=== PATIENT | male | born 1945 | race Caucasian/White ===

== ENCOUNTER 2017-04-14 16:17 | Inpatient (IN) | payer MEDICARE, OTHER ==
[2017-04-14 16:45] LABS: BASO # 0.2 K/uL (0.0-0.2); BASO % 2.2 % (0.0-2.0); EOS # 0.1 K/uL (0.0-0.7); EOS % 0.9 % (0.0-4.0); HEMATOCRIT 42.7 % (35.0-51.0); LYMPH # 1.4 K/uL (1.0-4.3); LYMPH % 19.6 % (20.0-40.0); MEAN CELL VOLUME 88.7 fL (80.0-94.0); MEAN CORPUSCULAR HEMOGLOBIN 29.1 pg (27.0-31.0); MEAN CORPUSCULAR HGB CONC 32.7 g/dL (33.0-37.0); MEAN PLATELET VOLUME 9.6 fL (7.2-11.7); MONO # 0.5 K/uL (0.0-0.8); MONO % 7.6 % (0.0-10.0); PLATELET COUNT 126 K/uL (130-400); RED CELL DISTRIBUTION WIDTH 15.3 % (11.5-14.5)
[2017-04-14] MEDS ORDERED: Sodium Chloride 0.9% 500 ML IV ONE ×2 (16:58→18:17)
[2017-04-14 17:05] LABS: INR 1.1
[2017-04-14 17:07] LABS: ALB/GLOB RATIO 0.9 (1.0-2.1); BILIRUBIN,TOTAL 1.1 mg/dL (0.2-1.3); CALCIUM 8.4 mg/dl (8.6-10.4); TOTAL PROTEIN 8.6 g/dL (6.3-8.3)
[2017-04-14 17:14] LABS: TROPONIN I 0.16 ng/mL (0.00-0.120)
--- NOTE | 2017-04-14 17:14 | C.PDOC ---
Time Seen by Provider: 04/14/17 16:31 Chief Complaint (Nursing): Dizziness/Lightheaded Past Medical History Vital Signs: Last Vital Signs Temp 99.0 F 04/14/17 16:29 Pulse 123 H 04/14/17 16:29 Resp 20 04/14/17 16:29 BP 118/78 04/14/17 16:29 Pulse Ox 93 L 04/14/17 16:29 - Medical History PMH: HTN, Hypercholesterolemia, Parkinson's Disease, Peripheral Edema, Sexually Transmitted Disease () Denies: Anxiety, Chronic Kidney Disease Family History: States: Unknown Family Hx (no pertinent family history) - Social History Hx Tobacco Use: No Hx Alcohol Use: No Hx Substance Use: No - Immunization History Hx Tetanus Toxoid Vaccination: No Hx Influenza Vaccination: No Hx Pneumococcal Vaccination: No ED Course And Treatment - Laboratory Results Result Diagrams: 04/14/17 16:42 04/14/17 16:42 O2 Sat by Pulse Oximetry: 93 Disposition - Disposition
--- NOTE | 2017-04-14 17:17 | C.PDOC ---
History Of Present Illness Patient FANTA from home, states he fell today because he felt light-headed and lost his balance. He admits to hitting head and right chest/upper back on floor , but denies LOC. Patient has h/o Parkinson's disease, dementia, HTN, hyperlipidemia. Patient denies chest pain, SOB, abdominal pain, headache, current dizziness, visual changesm, extremity weakness, sensory changes. 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) Current Symptoms Are (Timing): Better Activity At Onset Of Symptoms: Standing Fall Associated With With Symptoms: Yes Severity: Mild Past Medical History Reviewed: Historical Data, Nursing Documentation, Vital Signs Vital Signs: Last Vital Signs Temp 99.0 F 04/14/17 16:29 Pulse 123 H 04/14/17 16:29 Resp 20 04/14/17 16:29 BP 118/78 04/14/17 16:29 Pulse Ox 93 L 04/14/17 18:55 - Medical History PMH: HTN, Hypercholesterolemia, Parkinson's Disease, Peripheral Edema, Sexually Transmitted Disease () Family History: States: Other Other Family History: noncontributory - Social History Hx Tobacco Use: No Hx Alcohol Use: No Hx Substance Use: No - Immunization History Hx Tetanus Toxoid Vaccination: No Hx Influenza Vaccination: No Hx Pneumococcal Vaccination: No Review Of Systems Except As Marked, All Systems Reviewed And Found Negative. Constitutional: Negative for: Fever, Chills Cardiovascular: Negative for: Chest Pain Respiratory: Negative for: Shortness of Breath Gastrointestinal: Negative for: Abdominal Pain Musculoskeletal: Positive for: Other (right sided rib/upper back pain) Skin: Negative for: Rash Neurological: Positive for: Dizziness. Negative for: Weakness, Numbness, Headache Physical Exam - Physical Exam Appears: Well, Non-toxic, No Acute Distress Skin: Normal Color, Warm, Dry Head: Atraumatic, Normacephalic Eye(s): bilateral: Normal Inspection Oral Mucosa: Dry Chest: Symmetrical, Tenderness (right lateral chest/thoracic area at approx rib4 /5 area) Cardiovascular: Rhythm Regular (tachycardic ) Respiratory: Normal Breath Sounds, No Rales, No Rhonchi, No Wheezing Gastrointestinal/Abdominal: Normal Exam, Bowel Sounds, Soft, No Tenderness Back: Normal Inspection, No CVA Tenderness, No Vertebral Tenderness Extremity: Normal ROM, No Calf Tenderness, No Deformity Pulses: Left Dorsalis Pedis: Normal, Right Dorsalis Pedis: Normal Neurological/Psych: Oriented x3, Other (resting tremor noted) ED Course And Treatment - Laboratory Results Result Diagrams: 04/14/17 16:42 04/14/17 16:42 ECG: Interpreted By Me, Viewed By Me (sinus tachycardia 121 bpm, short OR interval, no delta wavresm normal axis, ST depressions II, aVF, V3-V6) ECG Interpretation: Abnormal O2 Sat by Pulse Oximetry: 93 (RA) Pulse Ox Interpretation: Abnormal - Other Rad RIBS SERIES X-Ray: Viewed By Me, Read By Radiologist Interpretation: Accession No. : [id number]. Patient Name / ID : MARCELLA GARRISON I / [id number]. Exam Date : 04/14/2017 16:59:15 ( Approved ). Study Comment : Sex / Age : M / 71Y. Creator : Rajinder White MD. Dictator : Rajinder White MD. District Manager Primary Care Sales : Physician Assistant : Rajinder White MD. Approver2 : Report Date : 04/14/2017 17:32:31. My Comment : . Right ribs two views. History: Fall. Comparison: None available. Findings: Question cortical irregularity of the right anterolateral 3rd and 4th ribs which may represent underlying osseous injury. Correlation with chest CT may be helpful if clinically indicated. No evidence of pneumothorax. Mild venous congestion. Right hilar prominence. Degenerative changes in the right shoulder. Impression: Question cortical irregularity of the right anterolateral 3rd and 4th ribs which may represent underlying osseous injury. Correlation with chest CT may be helpful if clinically indicated. No evidence of pneumothorax. cxr X-Ray: Viewed By Me, Read By Radiologist Interpretation: Accession No. : [id number]. Patient Name / ID : MARCELLA GARRISON I / [id number]. Exam Date : 04/14/2017 16:45:57 ( Approved ). Study Comment : Sex / Age : M / 71Y. Creator : Rajinder White MD. Dictator : Rajinder White MD. District Manager Primary Care Sales : Physician Assistant : Rajinder White MD. Approver2 : Report Date : 04/14/2017 17:37:51. My Comment : . Chest x- ray single frontal view. History: Tachycardia. Comparison: None available. Findings: Mild to moderate venous congestion. Patchy increased consolidative markings at the right lung base which may represent infiltrate and or atelectasis. Post treatment interval followup may be helpful to ensure resolution. Question cortical irregularity of the right anterolateral 3rd and 4th ribs which may represent underlying osseous injury. Correlation with chest CT may be helpful if clinically indicated. No evidence of pneumothorax. Tortuous aorta. Mild cardiomegaly. Degenerative changes in the spine and shoulders. Impression: Mild to moderate venous congestion. Patchy increased consolidative markings at the right lung base which may represent infiltrate and or atelectasis. Post treatment interval followup may be helpful to ensure resolution. Question cortical irregularity of the right anterolateral 3rd and 4th ribs which may represent underlying osseous injury. Correlation with chest CT may be helpful if clinically indicated. No evidence of pneumothorax. Tortuous aorta. Mild cardiomegaly. Progress Note: Blood work, CXR/rib series, CT head, UA ordered and reviewed. Patient given PO tylenol. Troponin mildly elevated with abnormal EKG - pending CT head to r/o bleed prior to ASA administration. Disposition - Disposition Disposition Time: 19:00 Condition: FAIR Forms: [facility] (Arabic) - Clinical Impression Clinical Impression: Fall, Elevated troponin Physician Patient Turnover Patient Signed Over To: Dawit Parikh Handoff Comments: pending CT head, admission, Dr. Elizabeth
[2017-04-14] MEDS ORDERED: Sodium Chloride 0.9% 1,000 ML ONE (17:18)
--- NOTE | 2017-04-14 17:34 | RAD ---
Right ribs two views History: Fall. Comparison: None available. Findings: Question cortical irregularity of the right anterolateral 3rd and 4th ribs which may represent underlying osseous injury. Correlation with chest CT may be helpful if clinically indicated. No evidence of pneumothorax. Mild venous congestion. Right hilar prominence. Degenerative changes in the right shoulder. Impression: Question cortical irregularity of the right anterolateral 3rd and 4th ribs which may represent underlying osseous injury. Correlation with chest CT may be helpful if clinically indicated. No evidence of pneumothorax.
--- NOTE | 2017-04-14 17:39 | RAD ---
Chest x-ray single frontal view History: Tachycardia. Comparison: None available. Findings: Mild to moderate venous congestion. Patchy increased consolidative markings at the right lung base which may represent infiltrate and or atelectasis. Post treatment interval followup may be helpful to ensure resolution. Question cortical irregularity of the right anterolateral 3rd and 4th ribs which may represent underlying osseous injury. Correlation with chest CT may be helpful if clinically indicated. No evidence of pneumothorax. Tortuous aorta. Mild cardiomegaly. Degenerative changes in the spine and shoulders. Impression: Mild to moderate venous congestion. Patchy increased consolidative markings at the right lung base which may represent infiltrate and or atelectasis. Post treatment interval followup may be helpful to ensure resolution. Question cortical irregularity of the right anterolateral 3rd and 4th ribs which may represent underlying osseous injury. Correlation with chest CT may be helpful if clinically indicated. No evidence of pneumothorax. Tortuous aorta. Mild cardiomegaly.
[2017-04-14] MEDS ORDERED: TYLENOL EXTRA STRENGTH 500 MG PO PRN (20:17)
[2017-04-14] MEDS: Nitroglycerin 2% Ointment Foilpak UD TOP SCH (21:26)
[2017-04-14 21:53] LABS: RBC URINE 2 /hpf (0-3); URINE BILIRUBIN NEGATIVE (NEGATIVE); URINE BLOOD NEGATIVE (NEGATIVE); URINE COLOR Yellow (YELLOW); URINE GLUCOSE (UA) NORMAL (Normal); URINE HYALINE CAST >20 /lpf (0-2); URINE KETONE 1+ mg/dL (NEGATIVE); URINE LEUKOCYTE ESTERASE NEG Leu/uL (Negative); URINE PROTEIN 1+ mg/dL (NEGATIVE); URINE UROBILINOGEN NORMAL mg/dL (0.2-1.0); WBC URINE 1 /hpf (0-5)
[2017-04-15 01:55] LABS: TROPONIN I 0.512 ng/mL (0.00-0.120)
[2017-04-15] MEDS: Nitroglycerin 2% Ointment Foilpak UD TOP SCH ×4 (04:33→22:15)
[2017-04-15 06:55] LABS: BASO # 0.1 K/uL (0.0-0.2); BASO % 1.1 % (0.0-2.0); EOS # 0.1 K/uL (0.0-0.7); EOS % 1.7 % (0.0-4.0); HEMATOCRIT 41.3 % (35.0-51.0); LYMPH # 1.2 K/uL (1.0-4.3); LYMPH % 21.7 % (20.0-40.0); MEAN CELL VOLUME 89.3 fL (80.0-94.0); MEAN CORPUSCULAR HEMOGLOBIN 29.2 pg (27.0-31.0); MEAN CORPUSCULAR HGB CONC 32.7 g/dL (33.0-37.0); MEAN PLATELET VOLUME 9.8 fL (7.2-11.7); MONO # 0.6 K/uL (0.0-0.8); MONO % 10.3 % (0.0-10.0); NRBC % 0.2 % (0.0-2.0); RED CELL DISTRIBUTION WIDTH 15.2 % (11.5-14.5); WHITE BLOOD COUNT 5.7 K/uL (4.8-10.8)
[2017-04-15 07:55] LABS: ALB/GLOB RATIO 1.3 (1.0-2.1); BILIRUBIN,TOTAL 1.3 mg/dL (0.2-1.3); CALCIUM 7.9 mg/dl (8.6-10.4); POTASSIUM 3.8 mmol/L (3.6-5.2)
[2017-04-15 07:57] LABS: THYROID STIMULATING HORMONE 0.75 mIU/L (0.46-4.68)
[2017-04-15 08:01] LABS: TOTAL PROTEIN 7.6 g/dL (6.3-8.3)
--- NOTE | 2017-04-15 08:52 | CT ---
PROCEDURE: CT HEAD WITHOUT CONTRAST. HISTORY: DIZZINESS, FALLS COMPARISON: None available. TECHNIQUE: Axial computed tomography images were obtained through the head/brain without intravenous contrast. Radiation dose: Total exam DLP = 991 mGy-cm. This CT exam was performed using one or more of the following dose reduction techniques: Automated exposure control, adjustment of the mA and/or kV according to patient size, and/or use of iterative reconstruction technique. FINDINGS: HEMORRHAGE: No intracranial hemorrhage. BRAIN: Benign calcification of the falx cerebri. Mild cerebral volume loss and decreased attenuation of the periventricular white matter likely due chronic microangiopathic disease. VENTRICLES: Unremarkable. No hydrocephalus. CALVARIUM: Unremarkable. PARANASAL SINUSES: Unremarkable as visualized. No significant inflammatory changes. MASTOID AIR CELLS: Is Unremarkable as visualized. No inflammatory changes. OTHER FINDINGS: None. IMPRESSION: Negative acute. Chronic microvascular ischemic changes. If symptoms persist, consider further evaluation with MRI. These findings were preliminarily reported at 7:08 p.m. on 04/14/[address] Bran Ugarte from [facility].
--- NOTE | 2017-04-15 09:11 | CP.PCM.PN ---
Subjective - Date & Time of Evaluation Date of Evaluation: 04/15/17 Time of Evaluation: 09:00 - Subjective Subjective: PT SEEN WITH DR. ENRIQUEZ TODAY DURING ROUNDS. DR. GOULD SAW AND EVAL'D PT WELL. DOPPLER OF LE DONE AND + DVT TO LLE; CT CHEST + MULTIPLE B/L PEs; REPEAT HEAD CT NEG. DRS. GOULD AND MINA AWARE OF RESULTS. HEP GTT STARTED BY DR. GOULD AND CONSULT FOR DR. SOUTH REQUESTED FOR IVC FILTER PT IS A POOR CANDIDATE FOR PO ANTICOAG AT HOME 2/2 FREQUENT FALLS. WILL F/ U. Objective - Vital Signs/Intake and Output Vital Signs (last 24 hours): Temp Pulse Resp BP Pulse Ox 98.3 F 94 H 18 112/63 98 04/15/17 08:03 04/15/17 08:03 04/15/17 08:03 04/15/17 08:03 04/15/17 08:03 Intake and Output: 04/15/17 04/15/17 06:59 18:59 Intake Total 200 Output Total 250 Balance -50 - Medications Medications: Current Medications Acetaminophen (Tylenol 325mg Tab) 325 mg PO Q6H PRN PRN Reason: Pain, moderate (4-7) Aspirin (Aspirin Chewable) 81 mg PO DAILY [facility] Carbidopa/Levodopa (Sinemet 10/100) 1 tab PO QID [facility] Last Admin: 04/14/17 22:34 Dose: 1 tab Gabapentin (Neurontin) 100 mg PO BID [facility] Metoprolol Succinate (Toprol Xl) 12.5 mg PO DAILY [facility] Nitroglycerin (Nitro-Bid 2% Oint) 1 ea TOP Q6H [facility] Last Admin: 04/15/17 04:33 Dose: 1 ea Pantoprazole Sodium (Protonix Ec Tab) 40 mg PO DAILY [facility] Pneumococcal Polyvalent Vaccine (Pneumovax 23 Vaccine) 0.5 ml IM .ONCE ONE Stop: 04/17/17 14:01 Rosuvastatin Calcium (Crestor) 20 mg PO HS [facility] Last Admin: 04/14/17 21:34 Dose: 20 mg - Labs Labs: 04/15/17 06:46 04/15/17 06:46 PT 12.4 SECONDS (9.7-12.2) H 04/14/17 16:42 INR 1.1 04/14/17 16:42 APTT 29 SECONDS (21-34) 04/14/17 16:42
[2017-04-15 09:20] LABS: TROPONIN I 0.249 ng/mL (0.00-0.120)
[2017-04-15] MEDS: Pantoprazole 40 mg EC Tab PO SCH (09:22)
[2017-04-15] MEDS ORDERED: Metoprolol Succinate 25 mg XL Tab PO SCH (10:00)
[2017-04-15] MEDS: Sodium Chloride 0.9% 1,000 ML IV SCH ×2 (11:52→21:15)
[2017-04-15] MEDS ORDERED: Iodixanol 320 MG/ML 100 ML BOTTLE IV ONE (13:32)
--- NOTE | 2017-04-15 14:24 | CT ---
PROCEDURE: CT HEAD WITHOUT CONTRAST. HISTORY: r/o bleed,24hr follow up COMPARISON: Comparison is made to the previous study dated 04/14/2017 TECHNIQUE: Axial computed tomography images were obtained through the head/brain without intravenous contrast. Radiation dose: Total exam DLP = 896.06 mGy-cm. This CT exam was performed using one or more of the following dose reduction techniques: Automated exposure control, adjustment of the mA and/or kV according to patient size, and/or use of iterative reconstruction technique. FINDINGS: HEMORRHAGE: No intracranial hemorrhage. BRAIN: No mass effect or edema. Mild chronic microvascular white matter ischemic disease is again noted. VENTRICLES: Unremarkable. No hydrocephalus. CALVARIUM: Unremarkable. PARANASAL SINUSES: Unremarkable as visualized. No significant inflammatory changes. MASTOID AIR CELLS: Unremarkable as visualized. No inflammatory changes. OTHER FINDINGS: None. IMPRESSION: No evidence of acute intracranial hemorrhage or significant interval change compared to the previous exam.
--- NOTE | 2017-04-15 14:36 | CT ---
PROCEDURE: CT Chest with contrast (Pulmonary Angiogram) HISTORY: r/o pe COMPARISON: None available. TECHNIQUE: Axial computed tomography images were obtained of the chest in the pulmonary arterial phase of enhancement. Coronal and sagittal reformatted images were created and reviewed. Intravenous contrast dose: 100 mL Visipaque 320 Radiation dose: Total exam DLP = 513.99 mGy-cm. This CT exam was performed using one or more of the following dose reduction techniques: Automated exposure control, adjustment of the mA and/or kV according to patient size, and/or use of iterative reconstruction technique. FINDINGS: PULMONARY ARTERIES: There are multiple filling defects seen in the distal portion of the main right and left pulmonary arteries. There are also multiple filling defect seen in the both upper and lower lobe pulmonary arteries. Nine the main pulmonary artery is mildly enlarged suggestive of mild pulmonary hypertension. AORTA: No acute findings. No thoracic aortic aneurysm. LUNGS: No evidence of acute pulmonary disease PLEURAL SPACES: Trace right pleural effusion is noted. No evidence of pneumothorax HEART: The heart is mildly enlarged. LYMPH NODES: No lymphadenopathy. BONES, CHEST WALL: Unremarkable. No fracture or destructive lesion OTHER FINDINGS: Unremarkable. IMPRESSION: Filling defects noted in both main pulmonary arteries and in the upper and lower pulmonary arteries consistent with pulmonary emboli. Trace right pleural effusion. Mild cardiomegaly. Mildly enlarged main pulmonary artery. The above findings were reported to and discussed with the nurse practitioner Mrs. Li in tower at 2:25 p.m. on 04/15/2017.
--- NOTE | 2017-04-15 16:25 | CP.PCM.CON ---
History of Present Illness - History of Present Illness History of Present Illness: Vasc Surgery: Dr Perez Pt is a 71M Creole speaking with history of Parkinson's disease, dementia, HTN, and HLD. Pt was was brought in by ambulance after he fell 2/2 feeling light headed and losing his balance. Pt states he hit his head on the floor, but he never lost consciousness. Vascular surgery was consulted as pt found to have multiple b/l PEs and a LLE DVT, primary is requesting IVC filter as pt is poor candidate for anti-coagulation given his frequent falls. Review of Systems - Review of Systems Systems not reviewed;Unavailable: Language Barrier Past Patient History - Past Medical History & Family History Past Medical History?: Yes - Past Social History Smoking Status: Never Smoked - CARDIAC Hx Cardiac Disorders: Yes Hx Hypercholesterolemia: Yes Hx Hypertension: Yes Hx Peripheral Edema: Yes - PULMONARY Hx Respiratory Disorders: Yes Hx Tuberculosis: Yes (1965) - NEUROLOGICAL Hx Neurological Disorder: Yes Hx Parkinson's Disease: Yes - HEENT Hx HEENT Problems: No - RENAL Hx Chronic Kidney Disease: No - ENDOCRINE/METABOLIC Hx Endocrine Disorders: No - HEMATOLOGICAL/ONCOLOGICAL Hx Blood Disorders: No - INTEGUMENTARY Hx Dermatological Problems: No - MUSCULOSKELETAL/RHEUMATOLOGICAL Hx Falls: Yes - GASTROINTESTINAL Hx Gastrointestinal Disorders: Yes Hx Constipation: Yes Other/Comment: Claimed he takes a small white pill and he moves his bowels - GENITOURINARY/GYNECOLOGICAL Hx Genitourinary Disorders: Yes Hx Sexually Transmitted Disorders: Yes () - PSYCHIATRIC Hx Psychophysiologic Disorder: No Hx Substance Use: No - SURGICAL HISTORY Hx Surgeries: No - ANESTHESIA Hx Anesthesia: No Hx Anesthesia Reactions: No Hx Malignant Hyperthermia: No Has any member of the family had a problem w/ anesthesia?: No Meds Allergies/Adverse Reactions: Allergies Allergy/AdvReac Type Severity Reaction Status Date / Time No Known Allergies Allergy Verified 04/14/17 16:34 - Medications Medications: Current Medications Acetaminophen (Tylenol 325mg Tab) 650 mg PO Q6H PRN PRN Reason: Pain, moderate (4-7) Last Admin: 04/15/17 12:46 Dose: 650 mg Aspirin (Aspirin Chewable) 81 mg PO DAILY [facility] Last Admin: 04/15/17 09:22 Dose: 81 mg Carbidopa/Levodopa (Sinemet 10/100) 1 tab PO DAILY [facility] Last Admin: 04/15/17 14:53 Dose: 1 tab Carbidopa/Levodopa (Sinemet 10/100) 2 tab PO QPM [facility] Carbidopa/Levodopa (Sinemet 10/100) 2 tab PO QAM [facility] Gabapentin (Neurontin) 100 mg PO BID [facility] Last Admin: 04/15/17 09:22 Dose: 100 mg Sodium Chloride (Sodium Chloride 0.9%) 1,000 mls @ 100 mls/hr IV .Q10H [facility] Last Admin: 04/15/17 11:52 Dose: 100 mls/hr Heparin Sodium/Sodium Chloride (Heparin 04181 Units/250ml 1/2 Normal Saline) 25 ,000 units in 250 mls @ 14.696 mls/hr IV .Q17H1M PRN; Protocol; 18 U/KG/HR PRN Reason: PROTOCOL Metoprolol Succinate (Toprol Xl) 12.5 mg PO DAILY [facility] Last Admin: 04/15/17 09:22 Dose: 12.5 mg Nitroglycerin (Nitro-Bid 2% Oint) 1 ea TOP Q6H [facility] Last Admin: 04/15/17 09:22 Dose: 1 ea Pantoprazole Sodium (Protonix Ec Tab) 40 mg PO DAILY [facility] Last Admin: 04/15/17 09:22 Dose: 40 mg Pneumococcal Polyvalent Vaccine (Pneumovax 23 Vaccine) 0.5 ml IM .ONCE ONE Stop: 04/17/17 14:01 Rosuvastatin Calcium (Crestor) 20 mg PO HS [facility] Last Admin: 04/14/17 21:34 Dose: 20 mg Physical Exam - Constitutional Appears: No Acute Distress - Respiratory Exam Respiratory Exam: absent: Accessory Muscle Use, Respiratory Distress - Cardiovascular Exam Cardiovascular Exam: Tachycardia, REGULAR RHYTHM - GI/Abdominal Exam GI & Abdominal Exam: Soft. absent: Distended, Tenderness - Extremities Exam Extremities exam: Positive for: calf tenderness, pedal pulses present Results - Vital Signs Recent Vital Signs: Last Vital Signs Temp 98.3 F 04/15/17 15:22 Pulse 94 H 04/15/17 15:22 Resp 20 04/15/17 15:22 BP 117/72 04/15/17 15:22 Pulse Ox 97 04/15/17 15:22 - Labs Result Diagrams: 04/15/17 06:46 04/15/17 06:46 Labs: Laboratory Results - last 24 hr 04/14/17 04/14/1704/14/17 16:42 16:42 16:42 WBC 7.0 D RBC 4.82 Hgb 14.0 Hct 42.7 MCV 88.7 D MCH 29.1 MCHC 32.7 L RDW 15.3 H Plt Count 126 L MPV 9.6 Neut % (Auto) 69.7 Lymph % (Auto) 19.6 L [place] % (Auto) 7.6 Eos % (Auto) 0.9 Baso % (Auto) 2.2 H Neut # 4.9 Lymph # 1.4 [place] # 0.5 Eos # 0.1 Baso # 0.2 Differential Comment Y PT 12.4 H INR 1.1 APTT 29 D-Dimer, Quantitative Sodium 139 Potassium 4.0 Chloride 102 Carbon Dioxide 29 Anion Gap 12 BUN 25 H Creatinine 2.0 H Est GFR ( Amer) 40 Est GFR (Non-Af Amer) 33 POC Glucose (mg/dL) Random Glucose 161 H Calcium 8.4 L Total Bilirubin 1.1 AST 34 ALT 29 Alkaline Phosphatase 58 Total Creatine Kinase 499 H CK-MB (Mass) 2.24 Troponin I 0.1600 H* Total Protein 8.6 H Albumin 4.1 Globulin 4.5 H Albumin/Globulin Ratio 0.9 L TSH 3rd Generation Urine Color Urine Clarity Urine pH Ur Specific [place] Urine Protein Urine Glucose (UA) Urine Ketones Urine Blood Urine Nitrate Urine Bilirubin Urine Urobilinogen Ur Leukocyte Esterase Urine WBC (Auto) Urine RBC (Auto) Ur Squamous Epith Cells Hyaline Casts 04/14/17 04/14/17 04/14/17 16:49 21:41 21:41 WBC RBC Hgb Hct MCV MCH MCHC RDW Plt Count MPV Neut % (Auto) Lymph % (Auto) [place] % (Auto) Eos % (Auto) Baso % (Auto) Neut # Lymph # [place] # Eos # Baso # Differential Comment PT INR APTT D-Dimer, Quantitative 4946 H Sodium Potassium Chloride Carbon Dioxide Anion Gap BUN Creatinine Est GFR ( Amer) Est GFR (Non-Af Amer) POC Glucose (mg/dL) 155 H Random Glucose Calcium Total Bilirubin AST ALT Alkaline Phosphatase Total Creatine Kinase CK-MB (Mass) Troponin I Total Protein Albumin Globulin Albumin/Globulin Ratio TSH 3rd Generation Urine Color Yellow Urine Clarity Clear Urine pH 5.0 Ur Specific [place] 1.024 Urine Protein 1+ H Urine Glucose (UA) Normal Urine Ketones 1+ H Urine Blood Negative Urine Nitrate Negative Urine Bilirubin Negative Urine Urobilinogen Normal Ur Leukocyte Esterase Neg Urine WBC (Auto) 1 Urine RBC (Auto) 2 Ur Squamous Epith Cells 3 Hyaline Casts >20 H 04/15/17 04/15/17 04/15/17 01:32 06:46 06:46 WBC 5.7 RBC 4.63 Hgb 13.5 Hct 41.3 MCV 89.3 MCH 29.2 MCHC 32.7 L RDW 15.2 H Plt Count 122 L MPV 9.8 Neut % (Auto) 65.2 Lymph % (Auto) 21.7 [place] % (Auto) 10.3 H Eos % (Auto) 1.7 Baso % (Auto) 1.1 Neut # 3.7 Lymph # 1.2 [place] # 0.6 Eos # 0.1 Baso # 0.1 Differential Comment PT INR APTT D-Dimer, Quantitative Sodium 139 Potassium 3.8 Chloride 103 Carbon Dioxide 30 Anion Gap 10 BUN 26 H Creatinine 1.5 Est GFR ( Amer) 56 Est GFR (Non-Af Amer) 46 POC Glucose (mg/dL) Random Glucose 111 H Calcium 7.9 L Total Bilirubin 1.3 AST 30 ALT 30 Alkaline Phosphatase 44 Total Creatine Kinase 487 H CK-MB (Mass) 3.34 Troponin I 0.5120 H* Total Protein 7.6 Albumin 3.6 Globulin 2.7 Albumin/Globulin Ratio 1.3 TSH 3rd Generation 0.75 Urine Color Urine Clarity Urine pH Ur Specific [place] Urine Protein Urine Glucose (UA) Urine Ketones Urine Blood Urine Nitrate Urine Bilirubin Urine Urobilinogen Ur Leukocyte Esterase Urine WBC (Auto) Urine RBC (Auto) Ur Squamous Epith Cells Hyaline Casts 04/15/17 08:40 WBC RBC Hgb Hct MCV MCH MCHC RDW Plt Count MPV Neut % (Auto) Lymph % (Auto) [place] % (Auto) Eos % (Auto) Baso % (Auto) Neut # Lymph # [place] # Eos # Baso # Differential Comment PT INR APTT D-Dimer, Quantitative Sodium Potassium Chloride Carbon Dioxide Anion Gap BUN Creatinine Est GFR ( Amer) Est GFR (Non-Af Amer) POC Glucose (mg/dL) Random Glucose Calcium Total Bilirubin AST ALT Alkaline Phosphatase Total Creatine Kinase 501 H CK-MB (Mass) 3.16 Troponin I 0.2490 H* Total Protein Albumin Globulin Albumin/Globulin Ratio TSH 3rd Generation Urine Color Urine Clarity Urine pH Ur Specific [place] Urine Protein Urine Glucose (UA) Urine Ketones Urine Blood Urine Nitrate Urine Bilirubin Urine Urobilinogen Ur Leukocyte Esterase Urine WBC (Auto) Urine RBC (Auto) Ur Squamous Epith Cells Hyaline Casts Assessment & Plan - Assessment and Plan (Free Text) Assessment: 71M with multiple PE/DVT ; poor candidate for anti-coagulation Plan: will plan for IVC filter tomorrow will get consent with aid private duty nurse NPO @[place] do not hold heparin drip d/w Dr Chris Nesbitt, PGY3
[2017-04-15] MEDS ORDERED: Heparin25000 units/250ml 1/2NS 25,000 UNITS/250 ML BAG IV PRN (16:30)
[2017-04-15 16:57] LABS: INR 1.2
--- NOTE | 2017-04-15 17:10 | VASCLAB ---
PROCEDURE: Lower Extremity Venous Duplex Exam. HISTORY: r/o dvt PRIORS: None. TECHNIQUE: Bilateral common femoral, femoral, popliteal and posterior tibial, peroneal and great saphenous veins were evaluated. Flow was assessed with color Doppler, compressibility, assessment of phasic flow and augmentation response. Report prepared by Antwon Thomas, CARLA, RVT FINDINGS: RIGHT: 1. Common Femoral Vein: 1.1. Compressibility - Fully compressible: Thrombus - None : Flow - Phasic: Augmentation -Normal: Reflux - None. 2. Femoral Vein: 2.1. Compressibility - Fully compressible: Thrombus - None : Flow - Phasic: Augmentation -Normal: Reflux - None. 3. Popliteal Vein: 3.1. Compressibility - Fully compressible: Thrombus - None : Flow - Phasic: Augmentation -Normal: Reflux - None. 4. Posterior Tibial Vein: 4.1. Compressibility - Fully compressible: Thrombus - None: Flow - Phasic: Augmentation -Normal: Reflux - None. 5. Peroneal Vein: 5.1. Compressibility - Fully compressible: Thrombus - None: Flow - Phasic: Augmentation -Normal: Reflux - None. 6. Great Saphenous Vein: 6.1. Compressibility - Fully compressible: Thrombus - None: Flow - Phasic: Augmentation - Normal: Reflux - None. LEFT: 1. Common Femoral Vein: 1.1. Compressibility - Fully compressible: Thrombus - None: Flow - Phasic: Augmentation -Normal: Reflux - None. 2. Femoral Vein: 2.1. Compressibility - Fully compressible: Thrombus - None: Flow - Phasic: Augmentation -Normal: Reflux - None. 3. Popliteal Vein: 3.1. Compressibility - Partial: Thrombus - Acute : Flow - Absent : Augmentation -None: Reflux - None. 4. Posterior Tibial Vein: 4.1. Compressibility - Fully compressible: Thrombus - None: Flow - Phasic: Augmentation -Normal: Reflux - None. 5. Peroneal Vein: 5.1. Compressibility - Partial: Thrombus - Acute: Flow - Absent : Augmentation -None: Reflux - None. 6. Great Saphenous Vein: 6.1. Compressibility - Fully compressible: Thrombus - None: Flow - Phasic: Augmentation - Normal: Reflux - None. OTHER FINDINGS: TRINA Porter notified about the findings. IMPRESSION: Right: No evidence of deep or superficial vein thrombosis of the right lower extremity. Normal valve function noted of the right side. Left: Acute thrombosis of the left popliteal and peroneal veins with severe reduction of the venous return.
--- NOTE | 2017-04-15 22:15 | CARD ---
APPROVED REPORT EKG Measurement Heart [id number] <Conclusion> Sinus tachycardia with short MO Left ventricular hypertrophy with repolarization abnormality Abnormal ECG
[2017-04-16] MEDS ORDERED: Heparin25000 units/250ml 1/2NS 25,000 UNITS/250 ML BAG IV PRN ×2 (01:04→01:15)
[2017-04-16] MEDS: Nitroglycerin 2% Ointment Foilpak UD TOP SCH ×4 (03:43→21:50)
[2017-04-16] MEDS: Sodium Chloride 0.9% 1,000 ML IV SCH ×2 (03:46→06:32)
[2017-04-16 08:29] LABS: HEMATOCRIT 46.1 % (35.0-51.0); MEAN CELL VOLUME 89.6 fL (80.0-94.0); MEAN CORPUSCULAR HEMOGLOBIN 29.2 pg (27.0-31.0); MEAN CORPUSCULAR HGB CONC 32.6 g/dL (33.0-37.0); MEAN PLATELET VOLUME 10.3 fL (7.2-11.7); RED CELL DISTRIBUTION WIDTH 15.3 % (11.5-14.5); WHITE BLOOD COUNT 5.7 K/uL (4.8-10.8)
[2017-04-16 08:52] LABS: ALB/GLOB RATIO 0.8 (1.0-2.1); ALKALINE PHOSPHATASE 53 U/L (38-126); ALT/SGPT 28 U/L (21-72); AST/SGOT 30 U/L (17-59); BILIRUBIN,TOTAL 1.3 mg/dL (0.2-1.3); BLOOD UREA NITROGEN 18 mg/dL (9-20); CALCIUM 8.1 mg/dl (8.6-10.4); CARBON DIOXIDE 26 mmol/L (22-30); CHLORIDE 101 mmol/L (98-107); GFR AFRICAN-AMERICAN > 60; GLUCOSE,RANDOM 105 mg/dL (75-110); POTASSIUM 4.3 mmol/L (3.6-5.2); SODIUM 134 mmol/L (132-148); TOTAL PROTEIN 8.4 g/dL (6.3-8.3)
[2017-04-16] MEDS: Metoprolol Succinate 12.5 mg XL PO SCH (09:51)
[2017-04-16] MEDS: Pantoprazole 40 mg EC Tab PO SCH (09:52)
[2017-04-16 10:30] LABS: INR 1.3
[2017-04-16 10:31] LABS: PARTIAL THROMBOPLASTIN TIME > 400 SECONDS (21-34)
[2017-04-16 13:52] LABS: INR 1.3
[2017-04-16] MEDS ORDERED: Lactated Ringer's 1,000 ML IV ONE (16:14)
[2017-04-16] MEDS ORDERED: Iohexol 240 200 ML ONE (16:24)
[2017-04-16] MEDS ORDERED: Lidocaine 1% Inj (20ml) ONE (16:25)
[2017-04-16] MEDS ORDERED: HEPARIN-NS 5,000 UNITS/500 ML 5,000 UNIT/500 ML BAG IV ONE (16:25)
[2017-04-16] MEDS ORDERED: ceFAZolin IV 2 gm in Dextrose 2 GM/50 ML BAG IVPB ONE (16:25)
[2017-04-16] MEDS ORDERED: Midazolam 2 MG/2 ML VIAL ONE (16:27)
--- NOTE | 2017-04-16 16:59 | PN ---
FOLLOWUP SUBJECTIVE: No reported ventricular arrhythmia or hypertension. PHYSICAL EXAMINATION: VITAL SIGNS: Blood pressure 157/81, heart rate 95, temperature 98, respirations 20. HEENT: Normocephalic. CHEST: Clear. HEART: S1 and S2 regular. EXTREMITIES: No edema. LABORATORY DATA: Today's SMA-7 is entirely within normal limits. Calcium is below normal at 8.1. Hemoglobin, hematocrit and white count are within normal limit. Platelet count has dropped to 115. The most recent PTT is 77. INR is 1.3. A venous Doppler of the lower extremity revealed acute thrombosis of the right popliteal and peroneal vein with severe reduction in the venous flow. ASSESSMENT: 1. Right popliteal and peroneal vein deep venous thrombosis. 2. Bilateral pulmonary emboli involving the main pulmonary trunks. 3. Parkinsonism. 4. Dementia. RECOMMENDATIONS: Heparin is on hold for IVC filter placement. Continue aspirin 81 mg once a day. Sinemet 2 tablets once a day of 10/100 mg. I will follow the echocardiography study which was performed yesterday. Shilo Yanez MD
--- NOTE | 2017-04-16 17:37 | PCM.SURG1 ---
Surgeon's Initial Post Op Note - Surgeon's Notes Surgeon: Dr Perez Hogshead Filler: Dr Nesbitt PGY3 Type of Anesthesia: General IV Pre-Operative Diagnosis: b/l PE, acute DVT Operative Findings: see report Post-Operative Diagnosis: as above Operation Performed: IVC placed via right femoral access w/ US and intraoperative floroscopy Specimen/Specimens Removed: none Estimated Blood Loss: EBL {In ML}: 5 Blood Products Given: N/A Drains Used: No Drains Post-Op Condition: Good Date of Surgery/Procedure: 04/16/17 Time of Surgery/Procedure: 17:37
[2017-04-16] MEDS: Heparin25000 units/250ml 1/2NS 25,000 UNITS/250 ML BAG IV PRN (18:03)
--- NOTE | 2017-04-16 19:05 | CP.PCM.CON ---
History of Present Illness - History of Present Illness History of Present Illness: 71 year old male with a history of HTN, HL, parkinsons disease, dementia, presented with dizzyness and fall, found to have PE and LLE DVT. The patient reports to dizziness which led to his fall. He notes this has occurred in the past. He denies headache and did not hit his head with the fall. He is s/p IVC filter. Past medical history: HTN, HL, parkinsons disease, dementia Past surgical history: Denies Family history: Denies hematologic and oncologic problems Social history: Denies tobacco, alcohol, and illicit drug use. Allergies: NKA Review of systems: All remaining review of systems including HEENT, cardiovascular, respiratory, gastrointestinal, genitourinary, musculoskeletal, dermatologic, neurologic and psychiatric are negative unless mentioned in the HPI. Past Patient History - Past Medical History & Family History Past Medical History?: Yes - Past Social History Smoking Status: Never Smoked - CARDIAC Hx Cardiac Disorders: Yes Hx Hypercholesterolemia: Yes Hx Hypertension: Yes Hx Peripheral Edema: Yes - PULMONARY Hx Respiratory Disorders: Yes Hx Tuberculosis: Yes (1965) - NEUROLOGICAL Hx Neurological Disorder: Yes Hx Parkinson's Disease: Yes - HEENT Hx HEENT Problems: No - RENAL Hx Chronic Kidney Disease: No - ENDOCRINE/METABOLIC Hx Endocrine Disorders: No - HEMATOLOGICAL/ONCOLOGICAL Hx Blood Disorders: No - INTEGUMENTARY Hx Dermatological Problems: No - MUSCULOSKELETAL/RHEUMATOLOGICAL Hx Falls: Yes - GASTROINTESTINAL Hx Gastrointestinal Disorders: Yes Hx Constipation: Yes Other/Comment: Claimed he takes a small white pill and he moves his bowels - GENITOURINARY/GYNECOLOGICAL Hx Genitourinary Disorders: Yes Hx Sexually Transmitted Disorders: Yes () - PSYCHIATRIC Hx Psychophysiologic Disorder: No Hx Substance Use: No - SURGICAL HISTORY Hx Surgeries: No - ANESTHESIA Hx Anesthesia: No Hx Anesthesia Reactions: No Hx Malignant Hyperthermia: No Has any member of the family had a problem w/ anesthesia?: No Meds Allergies/Adverse Reactions: Allergies Allergy/AdvReac Type Severity Reaction Status Date / Time No Known Allergies Allergy Verified 04/14/17 16:34 - Medications Medications: Current Medications Acetaminophen (Tylenol 325mg Tab) 650 mg PO Q6H PRN PRN Reason: Pain, moderate (4-7) Last Admin: 04/15/17 12:46 Dose: 650 mg Aspirin (Aspirin Chewable) 81 mg PO DAILY [facility] Last Admin: 04/16/17 09:52 Dose: 81 mg Carbidopa/Levodopa (Sinemet 10/100) 2 tab PO QPM [facility] Last Admin: 04/16/17 17:58 Dose: 2 tab Carbidopa/Levodopa (Sinemet 10/100) 2 tab PO DAILY@0800 [facility] Last Admin: 04/16/17 08:24 Dose: 2 tab Carbidopa/Levodopa (Sinemet 10/100) 1 tab PO DAILY@1200 [facility] Last Admin: 04/16/17 11:52 Dose: 1 tab Gabapentin (Neurontin) 100 mg PO BID [facility] Last Admin: 04/16/17 17:58 Dose: 100 mg Sodium Chloride (Sodium Chloride 0.9%) 1,000 mls @ 100 mls/hr IV .Q10H [facility] Last Admin: 04/16/17 06:32 Dose: Not Given Heparin Sodium/Sodium Chloride (Heparin 89102 Units/250ml 1/2 Normal Saline) 25 ,000 units in 250 mls @ 9.798 mls/hr IV .Q24H PRN; Protocol; 12 UNITS/KG/HR PRN Reason: PROTOCOL Last Admin: 04/16/17 18:03 Dose: 12 units/kg/hr, 9.798 mls/hr Metoprolol Succinate (Toprol Xl) 12.5 mg PO DAILY [facility] Last Admin: 04/16/17 09:51 Dose: 12.5 mg Nitroglycerin (Nitro-Bid 2% Oint) 1 ea TOP Q6H [facility] Last Admin: 04/16/17 14:27 Dose: 1 ea Pantoprazole Sodium (Protonix Ec Tab) 40 mg PO DAILY [facility] Last Admin: 04/16/17 09:52 Dose: 40 mg Pneumococcal Polyvalent Vaccine (Pneumovax 23 Vaccine) 0.5 ml IM .ONCE ONE Stop: 04/17/17 14:01 Rosuvastatin Calcium (Crestor) 20 mg PO HS [facility] Last Admin: 04/15/17 22:19 Dose: 20 mg Physical Exam - Head Exam Head Exam: ATRAUMATIC - Eye Exam Eye Exam: Normal appearance - ENT Exam ENT Exam: Mucous Membranes Dry - Respiratory Exam Respiratory Exam: NORMAL BREATHING PATTERN - Cardiovascular Exam Cardiovascular Exam: +S1, +S2 - GI/Abdominal Exam GI & Abdominal Exam: Normal Bowel Sounds Results - Vital Signs Recent Vital Signs: Last Vital Signs Temp 97.6 F 04/16/17 17:30 Pulse 85 04/16/17 17:30 Resp 15 04/16/17 17:30 BP 122/78 04/16/17 17:30 Pulse Ox 98 04/16/17 17:30 - Labs Result Diagrams: 04/16/17 08:17 04/16/17 08:17 Labs: Laboratory Results - last 24 hr 04/16/17 04/16/17 04/16/17 00:23 08:17 08:17 WBC 5.7 RBC 5.15 Hgb 15.0 Hct 46.1 MCV 89.6 MCH 29.2 MCHC 32.6 L RDW 15.3 H Plt Count 115 L MPV 10.3 PT INR APTT 288 H* D Sodium 134 Potassium 4.3 Chloride 101 Carbon Dioxide 26 Anion Gap 12 BUN 18 Creatinine 1.3 Est GFR ( Amer) > 60 Est GFR (Non-Af Amer) 54 Random Glucose 105 Calcium 8.1 L Total Bilirubin 1.3 AST 30 ALT 28 Alkaline Phosphatase 53 Total Protein 8.4 H Albumin 3.8 Globulin 4.6 H Albumin/Globulin Ratio 0.8 L Blood Type Antibody Screen 04/16/17 04/16/17 04/16/17 08:17 09:49 13:34 WBC RBC Hgb Hct MCV MCH MCHC RDW Plt Count MPV PT 14.5 H 14.5 H INR 1.3 1.3 APTT > 400 H* D 77 H D Sodium Potassium Chloride Carbon Dioxide Anion Gap BUN Creatinine Est GFR ( Amer) Est GFR (Non-Af Amer) Random Glucose Calcium Total Bilirubin AST ALT Alkaline Phosphatase Total Protein Albumin Globulin Albumin/Globulin Ratio Blood Type B POSITIVE Antibody Screen Negative Assessment & Plan (1) Pulmonary embolism Assessment and Plan: with LLE DVT I agree that fpc outpatient anticoagulation carries significant potential for morbidity given the patients frequent falls I agree with IVC filter placement Status: Acute (2) Coagulopathy Assessment and Plan: secondary to heparin drip Status: Acute (3) Thrombocytopenia Assessment and Plan: mild, cont to monitor Status: Acute (4) Elevated serum globulin level Assessment and Plan: will rule out monoclonal protein Thank you for this interesting consult. Status: Acute
--- NOTE | 2017-04-16 19:21 | PN ---
SUBJECTIVE: Today, the patient is alert and awake, resting comfortably on the bed and denied any chest pain or palpitation; however, the patient has been having some shortness of breath on exertion, like going to the bathroom, and the patient is still complaining of some involuntary tremors of the upper extremities. PHYSICAL EXAMINATION: VITAL SIGNS: Blood pressure was 138/81 and now 157/81, pulse 95, respirations 20, temperature 98 degrees Fahrenheit. HEENT: Head is normocephalic. NECK: Supple, no JVD. LUNGS: Some fine rales noted that is chronic bilaterally. HEART: Regular rate and rhythm, positive murmur and positive extrasystole. ABDOMEN: Soft, nontender, no palpable mass. EXTREMITIES: There is no edema. The patient has tremor of the upper extremities which could be stopped by holding the extremities. LABORATORY DATA: The patient's blood test shows that WBC is 5.7, hemoglobin is 15, hematocrit 46.1, and platelets 115. Chemistry showed that the sodium 134, potassium 4.3, chloride 101, bicarb is 26, BUN is 18, creatinine 1.3, and calcium 8.1. AST 30, ALT 28, alkaline phosphatase is 53. The coags show that the PT is 14.5, INR 1.3, and PTT is 77 which is coming down from 400. As of note, the patient had a CAT scan that had shown multiple foci of emboli. PLAN: The patient will go to the OR if possible today for filter and also I am going to continue him on the heparin in a.m. because of the possibility of starting Coumadin, but in the meantime, we are going to follow the vital signs. The case was discussed and reviewed with Ebonie Li, the nurse practitioner. Stu Elizabeth MD
--- NOTE | 2017-04-16 23:24 | OP ---
PROCEDURE DATE: 04/16/2017 PREOPERATIVE DIAGNOSES: Deep vein thrombosis and pulmonary embolism. POSTOPERATIVE DIAGNOSES: Deep vein thrombosis and pulmonary embolism. PROCEDURE: Placement of [place] removable filter in the right femoral vein with C-arm fluoroscopy, ultrasound-guided puncture and micropuncture technique. SURGEON: Kyrie Perez Jr., M.D. SAWYER CORK SLABS: Dr. Nesbitt. ANESTHESIOLOGIST: Dr. Whitfield. ESTIMATED BLOOD LOSS: Less than 20 mL INDICATIONS: The patient is an elderly man with bilateral pulmonary emboli, frequent falls, a variety of problems are related to his anticoagulation, felt to be poor candidate for anticoagulation, etc. OPERATIVE FINDINGS: A filter was inserted uneventfully in the right femoral vein. DESCRIPTION OF PROCEDURE: The patient was given local anesthesia. Using ultrasound guidance and micropuncture technique, the right common femoral vein was cannulated. Under fluoroscopic control, a guidewire was advanced centrally, and this was subsequently changed for an Amplatz wire. The filter was deployed at the level of the renal veins above the iliac confluence. After this was deployed, a subsequent film was taken confirming its position in an upright position. Procedure was then terminated. Blood loss during the procedure was less than 20 mL. Operation carried out was placement of [place] removable filter in the right femoral vein with C-arm fluoroscopy, ultrasound-guided puncture and micropuncture technique. Ultrasound images of the groin showed the vein was 14 mm in diameter with normal compressibility and no evidence of intraluminal thrombosis. Kyrie Perez Jr., MD
[2017-04-17] MEDS: Heparin25000 units/250ml 1/2NS 25,000 UNITS/250 ML BAG IV PRN (01:12)
[2017-04-17] MEDS: Sodium Chloride 0.9% 1,000 ML IV SCH ×3 (03:15→14:02)
[2017-04-17] MEDS: Nitroglycerin 2% Ointment Foilpak UD TOP SCH ×3 (03:32→15:18)
[2017-04-17 07:05] LABS: BLOOD UREA NITROGEN 16 mg/dL (9-20); CALCIUM 7.8 mg/dl (8.6-10.4); CARBON DIOXIDE 24 mmol/L (22-30); CHLORIDE 103 mmol/L (98-107); GFR AFRICAN-AMERICAN > 60; GLUCOSE,RANDOM 117 mg/dL (75-110); POTASSIUM 4.7 mmol/L (3.6-5.2); SODIUM 132 mmol/L (132-148)
--- NOTE | 2017-04-17 07:22 | HP ---
HISTORY OF PRESENT ILLNESS: The patient is a 71-year-old male with history of Parkinson disease, hypertension and the patient was brought to the emergency room because the patient on the floor. The patient stated that as he was going up in the stairs, he felt that the head was spinning and he fell. Denied any loss of consciousness. The patient was brought to the Emergency Room complaining of pain to the right side of the chest wall. PAST MEDICAL HISTORY: As I mentioned, history of hypertension, history of Parkinson's, and hyperlipidemia and neuropathy. MEDICATIONS: The patient was on medications including Sinemet, Protonix, and also metoprolol and acetaminophen. SOCIAL HISTORY: The patient is living with family. The patient used to have alcohol abuse, but has stopped a few years ago and also no history of smoking. ALLERGIES: THE PATIENT HAS NO KNOWN ALLERGY. FAMILY HISTORY: No inherited disease. REVIEW OF SYSTEMS: RESPIRATORY SYSTEM: The patient is having some shortness of breath on exertion. CARDIOVASCULAR: Denied any chest pain or palpitation. GASTROINTESTINAL: Having no constipation. No associated epigastric discomfort. GENITOURINARY: The patient admits having nocturia 2 or 3 times at night. NEUROLOGICAL: Complaining of pain to the right side of the chest wall and also complaining of some tremor. PHYSICAL EXAMINATION: GENERAL: The patient is Creole speaking, but the patient is alert, awake and oriented, and remembers all the incidents from the time he fell. VITAL SIGNS: Blood pressure 112/63, pulse is 94, respirations 18, temperature is 98.3, and on nasal cannula, saturation was 98%. HEENT: Loss of teeth. Head is normocephalic, atraumatic. NECK: Supple. LUNGS: There is few rhonchi noted, but the chest, there is some tenderness to the right side of the chest wall. ABDOMEN: Soft, nontender. No palpable mass. EXTREMITIES: There is no edema. NEUROLOGICAL: There is intermittent involuntary tremor of the upper extremity that is decreased or stopped by resting the hands over the . LABORATORY DATA: The patient has some tests done. The x-ray showed question cortical irregularity of the right anterolateral third and fourth ribs, which may be an underlying osseous injury. A chest CT maybe helpful. The patient has also a chest x-ray, has some patchy increased consolidated marking at the right lung base which may represent infiltrate or atelectasis. No evidence of pneumothorax. There is a degenerative change in the spine and the shoulder. Mild cardiomegaly. The patient was found to have some blood work done. The WBC was 7, hemoglobin 14, hematocrit 42.7 and platelet is 126,000. Chemistry has shown that the sodium is 139, potassium 4, chloride 102, bicarb 29, BUN 25, creatinine 2 and glucose is 165. AST 34, ALT 29, alkaline phosphatase is 58, and CPK was 499. The troponin was 0.16, which is high. The albumin is 4.1, the globulin is 4.5 the original troponin was somewhat higher, the second was 0.512, and third one was 0.249. ASSESSMENT AND PLAN: The patient was admitted in and the patient was seen in the morning and other tests were ordered included the duplex, which showed some evidence of DVT and also had a chest CT, a CT angio; a chest CT with IV contrast that has shown there are multiple filling defects seen in the distal portion of the lung, and which is the signature of pulmonary embolism. Again, the impression was filling defect noted in both main pulmonary arteries and in the upper and lower pulmonary arteries consistent with pulmonary emboli. Mild cardiomegaly, mildly enlarged main pulmonary artery, and also the patient has a recent CAT scan, the second CAT scan of the head does show no bleeding, no intracranial hemorrhage, no mass effect or edema, and mild chronic microvascular white matter. IMPRESSION: 1. Pulmonary embolism. 2. Parkinson's. 3. Myocardial infarction. 4. Deep venous thrombosis of the lower extremities. 5. Rib fracture. 6. Gait dysfunction. So the patient will have consult: 1. Dr. Yanez, Cardiology. 2. Neurology, Dr. Gallo. The case was reviewed and discussed with Ebonie Li the whole day and doing well, and we agreed with diagnoses and management. Consult will be with Dr. Perez for possible IVC filter. Stu Elizabeth MD
--- NOTE | 2017-04-17 09:45 | CP.PCM.PN ---
Subjective - Date & Time of Evaluation Date of Evaluation: 04/17/17 Time of Evaluation: 09:43 - Subjective Subjective: Vasc Sx: Dr Perez Pt S&E. JOSE. IVC filter placed yesterday. No complaints. Denies pain. Dressing c/d/i Objective - Vital Signs/Intake and Output Vital Signs (last 24 hours): Temp Pulse Resp BP Pulse Ox 97.4 F L 86 19 126/75 98 04/17/17 07:40 04/17/17 07:40 04/17/17 07:40 04/17/17 07:40 04/17/17 07:40 Intake and Output: 04/17/17 04/17/17 06:59 18:59 Intake Total 250 Balance 250 - Medications Medications: Current Medications Acetaminophen (Tylenol 325mg Tab) 650 mg PO Q6H PRN PRN Reason: Pain, moderate (4-7) Last Admin: 04/15/17 12:46 Dose: 650 mg Aspirin (Aspirin Chewable) 81 mg PO DAILY [facility] Last Admin: 04/16/17 09:52 Dose: 81 mg Carbidopa/Levodopa (Sinemet 10/100) 2 tab PO QPM [facility] Last Admin: 04/16/17 17:58 Dose: 2 tab Carbidopa/Levodopa (Sinemet 10/100) 2 tab PO DAILY@0800 [facility] Last Admin: 04/17/17 08:37 Dose: 2 tab Carbidopa/Levodopa (Sinemet 10/100) 1 tab PO DAILY@1200 [facility] Last Admin: 04/16/17 11:52 Dose: 1 tab Gabapentin (Neurontin) 100 mg PO BID [facility] Last Admin: 04/16/17 17:58 Dose: 100 mg Sodium Chloride (Sodium Chloride 0.9%) 1,000 mls @ 100 mls/hr IV .Q10H [facility] Last Admin: 04/17/17 06:25 Dose: 100 mls/hr Heparin Sodium/Sodium Chloride (Heparin 96288 Units/250ml 1/2 Normal Saline) 25 ,000 units in 250 mls @ 9.798 mls/hr IV .Q24H PRN; Protocol; 12 UNITS/KG/HR PRN Reason: PROTOCOL Last Admin: 04/17/17 01:12 Dose: 12 units/kg/hr, 9.798 mls/hr Metoprolol Succinate (Toprol Xl) 12.5 mg PO DAILY [facility] Last Admin: 04/16/17 09:51 Dose: 12.5 mg Nitroglycerin (Nitro-Bid 2% Oint) 1 ea TOP Q6H [facility] Last Admin: 04/17/17 08:36 Dose: 1 ea Pantoprazole Sodium (Protonix Ec Tab) 40 mg PO DAILY [facility] Last Admin: 04/16/17 09:52 Dose: 40 mg Pneumococcal Polyvalent Vaccine (Pneumovax 23 Vaccine) 0.5 ml IM .ONCE ONE Stop: 04/17/17 14:01 Rosuvastatin Calcium (Crestor) 20 mg PO HS [facility] Last Admin: 04/16/17 21:50 Dose: 20 mg - Labs Labs: 04/16/17 08:17 04/17/17 06:26 PT 14.5 SECONDS (9.7-12.2) H 04/16/17 13:34 INR 1.3 04/16/17 13:34 APTT 82 SECONDS (21-34) H 04/17/17 06:26 - Constitutional Appears: Non-toxic - Respiratory Exam Respiratory Exam: absent: Respiratory Distress - Cardiovascular Exam Cardiovascular Exam: Tachycardia, REGULAR RHYTHM - GI/Abdominal Exam GI & Abdominal Exam: Soft. absent: Distended, Firm, Tenderness Assessment and Plan - Assessment and Plan (Free Text) Assessment: 71M POD#1 s/p IVC filter placement Plan: cont mgmt per medical team dressing c/d/i - can remove tomorrow no further surgical intervention d/w Dr Chris Nesbitt, PGY3
[2017-04-17] MEDS: Metoprolol Succinate 12.5 mg XL PO SCH (10:20)
[2017-04-17] MEDS: Pantoprazole 40 mg EC Tab PO SCH (10:20)
--- NOTE | 2017-04-17 11:48 | CP.PCM.PN ---
Subjective - Date & Time of Evaluation Date of Evaluation: 04/17/17 Time of Evaluation: 11:00 - Subjective Subjective: patient seen today , denies any chest pain , sob, abdominal pain, N/V/D, r groin - no hematoma s/p IVC fileter- and on heparin drip d/w Dr. louis will add coumadin today and repeat INR and CBC in am Objective - Vital Signs/Intake and Output Vital Signs (last 24 hours): Temp Pulse Resp BP Pulse Ox 97.4 F L 86 19 126/75 98 04/17/17 07:40 04/17/17 07:40 04/17/17 07:40 04/17/17 07:40 04/17/17 07:40 Intake and Output: 04/17/17 04/17/17 06:59 18:59 Intake Total 250 Balance 250 - Medications Medications: Current Medications Acetaminophen (Tylenol 325mg Tab) 650 mg PO Q6H PRN PRN Reason: Pain, moderate (4-7) Last Admin: 04/15/17 12:46 Dose: 650 mg Aspirin (Aspirin Chewable) 81 mg PO DAILY [facility] Last Admin: 04/17/17 10:20 Dose: 81 mg Carbidopa/Levodopa (Sinemet 10/100) 2 tab PO QPM [facility] Last Admin: 04/16/17 17:58 Dose: 2 tab Carbidopa/Levodopa (Sinemet 10/100) 2 tab PO DAILY@0800 [facility] Last Admin: 04/17/17 08:37 Dose: 2 tab Carbidopa/Levodopa (Sinemet 10/100) 1 tab PO DAILY@1200 [facility] Last Admin: 04/17/17 11:35 Dose: 1 tab Gabapentin (Neurontin) 100 mg PO BID [facility] Last Admin: 04/17/17 10:20 Dose: 100 mg Sodium Chloride (Sodium Chloride 0.9%) 1,000 mls @ 100 mls/hr IV .Q10H [facility] Last Admin: 04/17/17 06:25 Dose: 100 mls/hr Heparin Sodium/Sodium Chloride (Heparin 17948 Units/250ml 1/2 Normal Saline) 25 ,000 units in 250 mls @ 9.798 mls/hr IV .Q24H PRN; Protocol; 12 UNITS/KG/HR PRN Reason: PROTOCOL Last Admin: 04/17/17 01:12 Dose: 12 units/kg/hr, 9.798 mls/hr Metoprolol Succinate (Toprol Xl) 12.5 mg PO DAILY [facility] Last Admin: 04/17/17 10:20 Dose: 12.5 mg Nitroglycerin (Nitro-Bid 2% Oint) 1 ea TOP Q6H [facility] Last Admin: 04/17/17 08:36 Dose: 1 ea Pantoprazole Sodium (Protonix Ec Tab) 40 mg PO DAILY [facility] Last Admin: 04/17/17 10:20 Dose: 40 mg Pneumococcal Polyvalent Vaccine (Pneumovax 23 Vaccine) 0.5 ml IM .ONCE ONE Stop: 04/17/17 14:01 Rosuvastatin Calcium (Crestor) 20 mg PO HS [facility] Last Admin: 04/16/17 21:50 Dose: 20 mg Warfarin Sodium (Coumadin) 5 mg PO 1800 [facility] Stop: 04/17/17 18:01 - Labs Labs: 04/16/17 08:17 04/17/17 06:26 PT 14.5 SECONDS (9.7-12.2) H 04/16/17 13:34 INR 1.3 04/16/17 13:34 APTT 82 SECONDS (21-34) H 04/17/17 06:26
[2017-04-17] MEDS ORDERED: Influenza Vaccine 60 mcg/0.5 mL SYR (4YR UP) IM ONE (14:00)
[2017-04-17] MEDS ORDERED: Pneumococcal 23-Valent Vaccine IM ONE (14:00)
[2017-04-17 14:02] LABS: BASO # 0.1 K/uL (0.0-0.2); BASO % 1.3 % (0.0-2.0); EOS # 0.2 K/uL (0.0-0.7); EOS % 3.9 % (0.0-4.0); HEMATOCRIT 37.5 % (35.0-51.0); LYMPH # 1.2 K/uL (1.0-4.3); LYMPH % 25.5 % (20.0-40.0); MEAN CELL VOLUME 88.8 fL (80.0-94.0); MEAN CORPUSCULAR HEMOGLOBIN 29.5 pg (27.0-31.0); MEAN CORPUSCULAR HGB CONC 33.2 g/dL (33.0-37.0); MEAN PLATELET VOLUME 10.8 fL (7.2-11.7); MONO # 0.5 K/uL (0.0-0.8); MONO % 10.2 % (0.0-10.0); NRBC % 0.2 % (0.0-2.0); RED CELL DISTRIBUTION WIDTH 14.5 % (11.5-14.5); WHITE BLOOD COUNT 4.8 K/uL (4.8-10.8)
[2017-04-17 14:08] LABS: INR 1.3
--- NOTE | 2017-04-17 17:05 | PN ---
FOLLOWUP SUBJECTIVE: The patient underwent vena cava filter placement under fluoroscopy yesterday. There is no groin bleeding reported today. PHYSICAL EXAMINATION: VITAL SIGNS: Blood pressure 144/82, heart rate 89, temperature 97.4, respirations 19. HEENT: Normocephalic. CHEST: Clear. HEART: S1 and S2 regular. EXTREMITIES: No edema. LABORATORY DATA: Today's SMA-7 is within normal limit except for glucose of 117 and calcium of 7.8. Hemoglobin, hematocrit, white count are within normal limit. Platelet count is declining to 103,000. ASSESSMENT: 1. Bilateral main pulmonary trunk emboli. 2. Elevated troponin, most likely represents pulmonary infarct rather than myocardial infarct. 3. Acute thrombosis of the left popliteal and peroneal vein with severe reduction in the venous flow. 4. Parkinsonism. RECOMMENDATIONS: Continue Toprol-XL 12.5 mg once a day, Sinemet 1 table twice a day. IV heparin was resumed with a therapeutic regimen for pulmonary embolus. I agree with starting Coumadin at 5 mg today. A full anticoagulation should be maintained for at least 6 months. Shilo Yanez MD
--- NOTE | 2017-04-18 00:05 | PN ---
DATE: SUBJECTIVE: Today, the patient is alert, awake, and oriented. The patient is Creole speaking only. The patient denies any shortness of breath at rest. No chest pain, but admits having a tremor on and off on the upper extremities. PHYSICAL EXAMINATION: VITAL SIGNS: Blood pressure of 136/80, pulse is 81, respirations 22 and temperature is 97.7. NECK: Supple. LUNGS: Clear. HEART: Regular rate and rhythm, but some extrasystole. ABDOMEN: Soft, nontender, positive bowel sounds. EXTREMITIES: There is tenderness to the calf of the right lower extremity and there is no swelling though, but there are chronic changes of the skin of the lower extremities both. NEUROLOGICAL: The patient has Parkinson tremor of upper extremities. LABORATORY DATA: Blood work done today show that the WBC is 4.8, hemoglobin 12.4, hematocrit 37.5 and platelets are 103, and I did mention that the hemoglobin fall from 15 yesterday to 12.4. Chemistry show that the sodium is 132, potassium 4.7, chloride 103, bicarb is 24, BUN is 16, creatinine 1.2, glucose 107, and a calcium of 7.8. The patient's coagulation showed that the PT is 14.4, INR 1.3 and PTT is 82. The patient is on heparin. ASSESSMENT AND PLAN: The case was studied, evaluated and discussed with Wendy Cheatham, the nurse practitioner, and the plan is that we are going to start the patient on Coumadin 5 mg and also since the patient has some history of fall and not that secured at home. We recommended to send the patient to a rehab for 3 to 6 months to continue the anticoagulation under some kind of supervision and the patient has an IVC filter inserted yesterday by Dr. Perez without any incident. The case was discussed with the patient and also brother. They agreed for the rehab and we are going to consider to do that, but however, the patient has hemoglobin that fell from 15 to 12 and stool for occult blood is ordered and also PT and INR also ordered. The patient was seen also by Dr. Yanez, the retanner and his recommendation is appreciated and we are going to continue to carry out his recommendation. ADDENDUM: The nitro paste will be discontinued. Again, the case was discussed with Wendy Cheatham, the nurse practitioner. Stu Elizabeth MD [facility] # [id number]
[2017-04-18 03:12] VITALS: RESP 20
[2017-04-18] MEDS: Heparin25000 units/250ml 1/2NS 25,000 UNITS/250 ML BAG IV PRN (05:56)
[2017-04-18 06:59] LABS: BASO # 0.1 K/uL (0.0-0.2); BASO % 1.1 % (0.0-2.0); EOS # 0.3 K/uL (0.0-0.7); EOS % 5.2 % (0.0-4.0); LYMPH # 1.1 K/uL (1.0-4.3); LYMPH % 21.3 % (20.0-40.0); MEAN CELL VOLUME 88.6 fL (80.0-94.0); MEAN CORPUSCULAR HEMOGLOBIN 29.8 pg (27.0-31.0); MEAN CORPUSCULAR HGB CONC 33.6 g/dL (33.0-37.0); MEAN PLATELET VOLUME 11.1 fL (7.2-11.7); MONO # 0.5 K/uL (0.0-0.8); MONO % 9.8 % (0.0-10.0); NRBC % 0.1 % (0.0-2.0); RED CELL DISTRIBUTION WIDTH 14.8 % (11.5-14.5); WHITE BLOOD COUNT 5.4 K/uL (4.8-10.8)
[2017-04-18 07:57] LABS: INR 1.2
[2017-04-18] MEDS ORDERED: Heparin25000 units/250ml 1/2NS 25,000 UNITS/250 ML BAG IV PRN (08:30)
[2017-04-18] MEDS: Pantoprazole 40 mg EC Tab PO SCH (10:31)
[2017-04-18] MEDS: Metoprolol Succinate 12.5 mg XL PO SCH (10:31)
--- NOTE | 2017-04-18 14:01 | RAD ---
PROCEDURE: HISTORY: Fluoroscopy for DVT PE prophylaxis COMPARISON: None TECHNIQUE: Total fluoroscopic time utilized during the procedure: 106.1 seconds. Total dose 1.29 mGy cm squared FINDINGS: Submitted images from the current procedure: 2 Please refer to the physician's notes performing the procedure. IMPRESSION: Less than 1 hour fluoroscopic time utilized during performance of the procedure
--- NOTE | 2017-04-18 17:48 | CP.PCM.PN ---
Subjective - Date & Time of Evaluation Date of Evaluation: 04/17/17 Time of Evaluation: 18:00 - Subjective Subjective: No complaints Objective - Vital Signs/Intake and Output Vital Signs (last 24 hours): Temp Pulse Resp BP Pulse Ox 98.8 F 88 20 144/76 97 04/18/17 15:44 04/18/17 15:44 04/18/17 15:44 04/18/17 15:44 04/18/17 15:44 Intake and Output: 04/18/17 04/18/17 06:59 18:59 Intake Total 250 496 Balance 250 496 - Medications Medications: Current Medications Acetaminophen (Tylenol 325mg Tab) 650 mg PO Q6H PRN PRN Reason: Pain, moderate (4-7) Last Admin: 04/15/17 12:46 Dose: 650 mg Aspirin (Aspirin Chewable) 81 mg PO DAILY [facility] Last Admin: 04/18/17 10:31 Dose: 81 mg Carbidopa/Levodopa (Sinemet 10/100) 2 tab PO QPM [facility] Last Admin: 04/18/17 17:45 Dose: 2 tab Carbidopa/Levodopa (Sinemet 10/100) 2 tab PO DAILY@0800 [facility] Last Admin: 04/18/17 08:33 Dose: 2 tab Carbidopa/Levodopa (Sinemet 10/100) 1 tab PO DAILY@1200 [facility] Last Admin: 04/18/17 11:31 Dose: 1 tab Folic Acid (Folic Acid) 1 mg PO DAILY [facility] Last Admin: 04/18/17 10:31 Dose: 1 mg Gabapentin (Neurontin) 100 mg PO BID [facility] Last Admin: 04/18/17 17:45 Dose: 100 mg Heparin Sodium/Sodium Chloride (Heparin 24367 Units/250ml 1/2 Normal Saline) 25 ,000 units in 250 mls @ 7.348 mls/hr IV .Q24H PRN; Protocol; 9 UNITS/KG/HR PRN Reason: PROTOCOL Last Admin: 04/18/17 09:02 Dose: 9 units/kg/hr, 7.348 mls/hr Metoprolol Succinate (Toprol Xl) 12.5 mg PO DAILY [facility] Last Admin: 04/18/17 10:31 Dose: 12.5 mg Pantoprazole Sodium (Protonix Ec Tab) 40 mg PO DAILY [facility] Last Admin: 04/18/17 10:31 Dose: 40 mg Rosuvastatin Calcium (Crestor) 20 mg PO HS [facility] Last Admin: 04/17/17 21:18 Dose: 20 mg Warfarin Sodium (Coumadin) 7.5 mg PO 1800 [facility] Stop: 04/18/17 18:01 Last Admin: 04/18/17 17:44 Dose: 7.5 mg - Labs Labs: 04/18/17 06:12 04/17/17 06:26 PT 14.3 SECONDS (9.7-12.2) H 04/18/17 06:12 INR 1.2 04/18/17 06:12 APTT 80 SECONDS (21-34) H D 04/18/17 15:25 - Head Exam Head Exam: ATRAUMATIC - Eye Exam Eye Exam: Normal appearance - ENT Exam ENT Exam: Mucous Membranes Dry - Respiratory Exam Respiratory Exam: NORMAL BREATHING PATTERN - Cardiovascular Exam Cardiovascular Exam: +S1, +S2 - GI/Abdominal Exam GI & Abdominal Exam: Normal Bowel Sounds Assessment and Plan (1) Pulmonary embolism Assessment & Plan: with LLE DVT I agree that [facility] outpatient anticoagulation carries significant potential for morbidity given the patients frequent falls I agree with IVC filter placement Status: Acute (2) Coagulopathy Assessment & Plan: secondary to heparin drip Status: Acute (3) Thrombocytopenia Assessment & Plan: mild, cont to monitor Status: Acute (4) Elevated serum globulin level Assessment & Plan: will rule out monoclonal protein Status: Acute
--- NOTE | 2017-04-18 17:53 | CP.PCM.PN ---
Subjective - Date & Time of Evaluation Date of Evaluation: 04/18/17 Time of Evaluation: 17:05 - Subjective Subjective: Appears comfortable Objective - Vital Signs/Intake and Output Vital Signs (last 24 hours): Temp Pulse Resp BP Pulse Ox 98.8 F 88 20 144/76 97 04/18/17 15:44 04/18/17 15:44 04/18/17 15:44 04/18/17 15:44 04/18/17 15:44 Intake and Output: 04/18/17 04/18/17 06:59 18:59 Intake Total 250 496 Balance 250 496 - Medications Medications: Current Medications Acetaminophen (Tylenol 325mg Tab) 650 mg PO Q6H PRN PRN Reason: Pain, moderate (4-7) Last Admin: 04/15/17 12:46 Dose: 650 mg Aspirin (Aspirin Chewable) 81 mg PO DAILY [facility] Last Admin: 04/18/17 10:31 Dose: 81 mg Carbidopa/Levodopa (Sinemet 10/100) 2 tab PO QPM [facility] Last Admin: 04/18/17 17:45 Dose: 2 tab Carbidopa/Levodopa (Sinemet 10/100) 2 tab PO DAILY@0800 [facility] Last Admin: 04/18/17 08:33 Dose: 2 tab Carbidopa/Levodopa (Sinemet 10/100) 1 tab PO DAILY@1200 [facility] Last Admin: 04/18/17 11:31 Dose: 1 tab Folic Acid (Folic Acid) 1 mg PO DAILY [facility] Last Admin: 04/18/17 10:31 Dose: 1 mg Gabapentin (Neurontin) 100 mg PO BID [facility] Last Admin: 04/18/17 17:45 Dose: 100 mg Heparin Sodium/Sodium Chloride (Heparin 95639 Units/250ml 1/2 Normal Saline) 25 ,000 units in 250 mls @ 7.348 mls/hr IV .Q24H PRN; Protocol; 9 UNITS/KG/HR PRN Reason: PROTOCOL Last Admin: 04/18/17 09:02 Dose: 9 units/kg/hr, 7.348 mls/hr Metoprolol Succinate (Toprol Xl) 12.5 mg PO DAILY [facility] Last Admin: 04/18/17 10:31 Dose: 12.5 mg Pantoprazole Sodium (Protonix Ec Tab) 40 mg PO DAILY [facility] Last Admin: 04/18/17 10:31 Dose: 40 mg Rosuvastatin Calcium (Crestor) 20 mg PO HS [facility] Last Admin: 04/17/17 21:18 Dose: 20 mg Warfarin Sodium (Coumadin) 7.5 mg PO 1800 [facility] Stop: 04/18/17 18:01 Last Admin: 04/18/17 17:44 Dose: 7.5 mg - Labs Labs: 04/18/17 06:12 04/17/17 06:26 PT 14.3 SECONDS (9.7-12.2) H 04/18/17 06:12 INR 1.2 04/18/17 06:12 APTT 80 SECONDS (21-34) H D 04/18/17 15:25 - Head Exam Head Exam: ATRAUMATIC - Eye Exam Eye Exam: Normal appearance - ENT Exam ENT Exam: Mucous Membranes Dry - Respiratory Exam Respiratory Exam: NORMAL BREATHING PATTERN - Cardiovascular Exam Cardiovascular Exam: +S1, +S2 - GI/Abdominal Exam GI & Abdominal Exam: Normal Bowel Sounds Assessment and Plan (1) Pulmonary embolism Assessment & Plan: with LLE DVT I agree that [facility] outpatient anticoagulation carries significant potential for morbidity given the patients frequent falls; for inpatient and rehab anticoagulation s/p IVC filter placement Status: Acute (2) Coagulopathy Assessment & Plan: secondary to anticoagulation Status: Acute (3) Thrombocytopenia Assessment & Plan: mild, cont to monitor Status: Acute (4) Elevated serum globulin level Assessment & Plan: will rule out monoclonal protein Status: Acute
--- NOTE | 2017-04-18 18:19 | PN ---
SUBJECTIVE: The patient denies any chest pain. He is still on intravenous heparin infusion. PHYSICAL EXAMINATION: VITAL SIGNS: Blood pressure 144/76, heart rate 88, temperature 98.8, respirations 20. HEENT: Normocephalic. CHEST: Clear. HEART: S1, S2, regular. EXTREMITIES: No edema. LABORATORY DATA: Hemoglobin and hematocrit 12.4 and 37.0, white count 5.4, platelet count is 105,000, which is slightly below normal. PTT 80, INR is 1.2. ASSESSMENT: 1. Bilateral main trunk pulmonary emboli. 2. Deep venous thrombosis of the left popliteal vein. 3. Mild thrombocytopenia. 4. Mild hypocalcemia. 5. Parkinsonism. 6. Dementia. RECOMMENDATIONS: Continue aspirin and IV heparin as therapeutic regimen for pulmonary embolism. I agree with Coumadin 7.5 mg to be administered today. Continue Sinemet and Toprol-XL. Shilo Yanez MD
--- NOTE | 2017-04-18 20:02 | CON ---
DATE CARDIOLOGY CONSULTATION REASON FOR CONSULTATION: Fall. HISTORY OF PRESENT ILLNESS: The patient is a 71-year-old male, originally from [facility], who has a history of Parkinsonism, history of dementia, hypertension, and hyperlipidemia. He presented because of a fall. The patient lost his balance without losing consciousness. He did experience dizziness prior to the fall, and he hit his head and the right side of his chest wall. The patient is experiencing right-sided chest discomfort. No reported ventricular arrhythmia on the monitor. HOME MEDICATIONS: Include Sinemet, Protonix, Restoril, and gabapentin. CURRENT HOSPITAL MEDICATIONS: Aspirin 81 mg once a day, Crestor 20 mg once a day, gabapentin 100 mg twice a day, nitro paste 1 inch q. 6 hours, Protonix 20 mg once a day, Sinemet 1 tablet once a day, Toprol XL 12.5 mg once a day. REVIEW OF SYSTEMS: No reported hypotension, no reported ventricular arrhythmia, no reported loss of consciousness, no reported nausea or vomiting, no reported fever or chills. PHYSICAL EXAMINATION: GENERAL: The patient is an elderly male, who does not appear to be in acute distress. VITAL SIGNS: Blood pressure 112/63, heart rate 94, temperature 98.3, respirations 18. HEENT: An edematous circumscribed part of the scalp, about 2 inch diameter. No tenderness. NECK: No JVD. CHEST: Clear. HEART: S1 and S2 regular. ABDOMEN: Soft. EXTREMITIES: No edema. DIAGNOSTIC DATA: EKG reveals sinus tachycardia at rate of 121, LVH with repolarization changes. CT angio of the chest revealed filling defect noted in both main pulmonary arteries and in the upper and lower pulmonary arteries, consistent with pulmonary emboli. Mild cardiomegaly. Mild enlarged and main pulmonary artery. Right rib x-ray revealed ? cortical irregularity of the right anterolateral third and fourth ribs, which may represent underlying osseous injury. Correlation with chest CT scan may be helpful, if clinically indicated. Repeat CT scan, no evidence of acute intracranial hemorrhage or significant interval change compared to the previous study. Preliminary report of venous Doppler, there is possible DVT; however, there are no details available. LABORATORY DATA: D-dimer is 4946, INR is 1.1. SMA-7 is within normal limits except for glucose 111 and BUN is 26. Troponin 0.216, 0.512, and 0.249. within normal limits. Hemoglobin, hematocrit and white count are within normal limits. Platelet count is slightly below normal at 122. ASSESSMENT: 1. Status post fall. 2. Acute bilateral main pulmonary artery emboli. 3. Deep venous thrombosis. 4. Parkinsonism. 5. Borderline troponin elevation, would represent acute pulmonary emboli rather than acute myocardial injury. RECOMMENDATIONS: 1. I did initiate intravenous heparin bolus and maintenance infusion with thromboembolism protocol. 2. Maintained what I initiated the yesterday including aspirin 81 mg once a day, Crestor 20 mg once a day, Toprol XL 12.5 mg once a day. 3. I recommended IVC filter placement because of the danger of long-term anticoagulation in view of history of Parkinsonism and history of falls. Shilo Yanez MD
--- NOTE | 2017-04-19 00:07 | CON ---
REASON FOR CONSULTATION: Syncope. HISTORY OF PRESENT ILLNESS: The patient is a 71-year-old male, who has been asked for evaluation of syncope. The patient was in his usual state of health and he has felt lightheaded and lost balance and fell down. There is a questionable history of loss of consciousness. There is no urinary incontinence or tongue biting. The patient feels good. Denies any dizziness. PAST MEDICAL HISTORY: Includes Parkinson disease, hypertension. MEDICATIONS AT HOME: Included Tylenol Extra Strength, Sinemet, Protonix, lisinopril and Neurontin. CURRENT MEDICATIONS: Include aspirin, Crestor, folic acid, Neurontin 100 mg b.i.d., Sinemet, metoprolol and acetaminophen. ALLERGIES: NO KNOWN DRUG ALLERGIES. FAMILY HISTORY: Noncontributory to the case. SOCIAL HISTORY: The patient denies smoking, use of alcohol or illicit drugs. REVIEW OF SYSTEMS: Denies any headache, chest pain, shortness of breath, abdominal pain, constipation, diarrhea, dysuria, cough, or sputum production. PHYSICAL EXAMINATION: GENERAL: The patient is an elderly male, lying on the bed, in no acute distress. VITAL SIGNS: Blood pressure is 144/76, heart rate is 88 per minute, breathing at a rate of 16 per minute, temperature is 98.8 degrees Fahrenheit. HEENT: Head is normocephalic, atraumatic. NECK: Supple. There are no carotid bruits. LUNGS: Clear. CARDIOVASCULAR: S1, S2 audible. No murmurs. ABDOMEN: Soft and nontender. Bowel sounds present. NEUROLOGIC: Mental status: The patient is awake, alert, oriented to time and place. Speech is fluent. Naming and repetition normal. Cranial nerve examination: Pupils 3 mm, minimally reactive to light. Visual lara are full. Extraocular movements are intact. There is no facial asymmetry. He is moving all 4 extremities. Power is 5/5 all over. The tone is normal. Reflexes 1+ and symmetrical. Plantars downgoing bilaterally. Cerebellar examination: [id number] shows no dysmetria. Gait is deferred at the moment. LABORATORY DATA: Labs reviewed showed WBC of 5.4, hemoglobin 12.4, hematocrit 37.0 and platelets of 105. His INR is 1.2. Sodium is 132, potassium 4.7, chloride 103, carbon dioxide 24, BUN of 16, creatinine 1.2 and glucose of 117. He had a CT scan of the head done, which shows no evidence of acute intracranial hemorrhage or significant interval change compared to the previous exam. IMPRESSION: 1. Status post syncope. Rule out any cardiac arrhythmias. It looks like a seizure. 2. History of Parkinson disease. RECOMMENDATIONS: 1. The patient had an electroencephalogram done which is normal. 2. The patient to have cardiac monitoring to look for any cardiac arrhythmias. 3. The patient to be continued on Sinemet. 4. The patient to have physical therapy evaluation. 5. Please continue supportive care and other treatment. Thank you for the opportunity to participate in the care of this patient. John Gallo MD
[2017-04-19 05:35] LABS: BETA 1 GLOBULIN 0.4 g/dL (0.4-0.6); BETA 2 GLOBULIN 0.5 g/dL (0.2-0.5); GAMMA GLOBULIN 1.5 g/dL (0.8-1.7)
[2017-04-19 06:59] LABS: BASO # 0.1 K/uL (0.0-0.2); EOS # 0.3 K/uL (0.0-0.7); EOS % 6.5 % (0.0-4.0); HEMATOCRIT 36.8 % (35.0-51.0); LYMPH # 1.1 K/uL (1.0-4.3); LYMPH % 20.9 % (20.0-40.0); MEAN CELL VOLUME 87.8 fL (80.0-94.0); MEAN CORPUSCULAR HEMOGLOBIN 29.9 pg (27.0-31.0); MONO # 0.6 K/uL (0.0-0.8); MONO % 11.3 % (0.0-10.0); NRBC % 0.2 % (0.0-2.0); WHITE BLOOD COUNT 5.3 K/uL (4.8-10.8)
--- NOTE | 2017-04-19 07:06 | PN ---
DATE: SUBJECTIVE: Today, patient is alert and awake. No shortness of breath. Denies any chest pain or palpitation. PHYSICAL EXAMINATION: VITAL SIGNS: The patient has blood pressure of 144/76, pulse 88, respirations 20, temperature 98.8. NECK: Supple. No JVD. LUNGS: There are some rhonchi noted. HEART: Regular rate and rhythm. ABDOMEN: Soft, nontender. No palpable mass. EXTREMITIES: There is some tenderness at the calf, right more than left. LABORATORY DATA: The patient has some tests done that showed WBC is 5.4, hemoglobin 12.4, hematocrit is 37, and platelets 105. Chemistry shows sodium 132, potassium 4.7, chloride 103, bicarbonate is 24, BUN 16, creatinine 1.2, GFR is 60, glucose 117, calcium 7.8, and total protein is 8. Coagulation show that PT is 14.3, INR is 1.2, and PTT now at 15:00 hours is 80. PLAN: We are going to increase the Coumadin to 7.5 mg and continue current medications. The patient will be scheduled to go for rehab. Stu Elizabeth MD
[2017-04-19 07:30] LABS: INR 1.9
[2017-04-19 08:39] LABS: ALB/GLOB RATIO 0.8 (1.0-2.1); ALKALINE PHOSPHATASE 43 U/L (38-126); ALT/SGPT 31 U/L (21-72); AST/SGOT 46 U/L (17-59); BILIRUBIN,TOTAL 0.8 mg/dL (0.2-1.3); BLOOD UREA NITROGEN 10 mg/dL (9-20); CALCIUM 8.1 mg/dl (8.6-10.4); CARBON DIOXIDE 28 mmol/L (22-30); CHLORIDE 100 mmol/L (98-107); GFR AFRICAN-AMERICAN > 60; GLUCOSE,RANDOM 96 mg/dL (75-110); POTASSIUM 3.8 mmol/L (3.6-5.2); SODIUM 134 mmol/L (132-148); TOTAL PROTEIN 7.2 g/dL (6.3-8.3)
[2017-04-19] MEDS: Pantoprazole 40 mg EC Tab PO SCH (09:20)
[2017-04-19] MEDS: Metoprolol Succinate 12.5 mg XL PO SCH (09:20)
--- NOTE | 2017-04-19 09:58 | EEG ---
DATE: 04/18/17 ELECTROENCEPHALOGRAM REPORT INTRODUCTION: This is a digitally recorded EEG monitoring using the standard EEG montages. BACKGROUND RHYTHM: The EEG shows a background activity of 8 Hz alpha activity in parietooccipital region. The EEG activity is bilaterally symmetrical and synchronous. There is attenuation of the background activity on eye opening. A small amount of myogenic artifact noticed in this EEG recording. ABNORMAL POTENTIALS: No spikes, sharp waves, or focal slowing was seen. PHOTIC STIMULATION AND HYPERVENTILATION: Photic stimulation did not reveal any abnormality. Hyperventilation was not performed. IMPRESSION: Normal electroencephalogram. No epileptiform activity seen in this electroencephalogram recording. John Gallo MD
--- NOTE | 2017-04-19 12:44 | CP.PCM.PN ---
Subjective - Date & Time of Evaluation Date of Evaluation: 04/19/17 Time of Evaluation: 11:55 - Subjective Subjective: Appears comfortable. Objective - Vital Signs/Intake and Output Vital Signs (last 24 hours): Temp Pulse Resp BP Pulse Ox 98.3 F 79 20 130/74 98 04/19/17 07:00 04/19/17 12:15 04/19/17 07:00 04/19/17 09:19 04/19/17 07:00 Intake and Output: 04/19/17 04/19/17 06:59 18:59 Output Total 600 Balance -600 - Medications Medications: Current Medications Acetaminophen (Tylenol 325mg Tab) 650 mg PO Q6H PRN PRN Reason: Pain, moderate (4-7) Last Admin: 04/15/17 12:46 Dose: 650 mg Aspirin (Aspirin Chewable) 81 mg PO DAILY [facility] Last Admin: 04/19/17 09:20 Dose: 81 mg Carbidopa/Levodopa (Sinemet 10/100) 2 tab PO QPM [facility] Last Admin: 04/18/17 17:45 Dose: 2 tab Carbidopa/Levodopa (Sinemet 10/100) 2 tab PO DAILY@0800 [facility] Last Admin: 04/19/17 08:17 Dose: 2 tab Carbidopa/Levodopa (Sinemet 10/100) 1 tab PO DAILY@1200 [facility] Last Admin: 04/19/17 11:24 Dose: 1 tab Docusate Sodium (Colace) 100 mg PO BID [facility] Last Admin: 04/19/17 09:20 Dose: 100 mg Folic Acid (Folic Acid) 1 mg PO DAILY [facility] Last Admin: 04/19/17 09:20 Dose: 1 mg Gabapentin (Neurontin) 100 mg PO BID [facility] Last Admin: 04/19/17 09:20 Dose: 100 mg Heparin Sodium/Sodium Chloride (Heparin 69302 Units/250ml 1/2 Normal Saline) 25 ,000 units in 250 mls @ 7.348 mls/hr IV .Q24H PRN; Protocol; 9 UNITS/KG/HR PRN Reason: PROTOCOL Last Admin: 04/18/17 09:02 Dose: 9 units/kg/hr, 7.348 mls/hr Metoprolol Succinate (Toprol Xl) 12.5 mg PO DAILY [facility] Last Admin: 04/19/17 09:20 Dose: 12.5 mg Pantoprazole Sodium (Protonix Ec Tab) 40 mg PO DAILY [facility] Last Admin: 04/19/17 09:20 Dose: 40 mg Rosuvastatin Calcium (Crestor) 20 mg PO HS [facility] Last Admin: 04/18/17 21:48 Dose: 20 mg Warfarin Sodium (Coumadin) 5 mg PO 1800 [facility] Stop: 04/19/17 16:01 - Labs Labs: 04/19/17 06:31 04/19/17 06:31 PT 21.8 SECONDS (9.7-12.2) H D 04/19/17 06:31 INR 1.9 D 04/19/17 06:31 APTT 70 SECONDS (21-34) H D 04/19/17 06:31 - Head Exam Head Exam: ATRAUMATIC - Eye Exam Eye Exam: Normal appearance - ENT Exam ENT Exam: Mucous Membranes Dry - Respiratory Exam Respiratory Exam: NORMAL BREATHING PATTERN - Cardiovascular Exam Cardiovascular Exam: +S1, +S2 - GI/Abdominal Exam GI & Abdominal Exam: Normal Bowel Sounds Assessment and Plan (1) Pulmonary embolism Assessment & Plan: with LLE DVT I agree that [facility] outpatient anticoagulation carries significant potential for morbidity given the patients frequent falls; for inpatient and rehab anticoagulation s/p IVC filter placement Status: Acute (2) Coagulopathy Assessment & Plan: anticoagulation. Status: Acute (3) Thrombocytopenia Assessment & Plan: mild, cont. to monitor Status: Acute (4) Elevated serum globulin level Assessment & Plan: monoclonal gammopathy w/u n progress Status: Acute
--- NOTE | 2017-04-19 14:06 | CP.PCM.PN ---
Subjective - Date & Time of Evaluation Date of Evaluation: 04/19/17 Time of Evaluation: 10:40 - Subjective Subjective: Patient seen today, denies any chest pain, sob, palpitations, dizziness, abdominal or groin pain No overnight events reported by RN s/p IVC filter on heparin drip for PE , inr today- 1.9 Objective - Vital Signs/Intake and Output Vital Signs (last 24 hours): Temp Pulse Resp BP Pulse Ox 98.3 F 79 20 130/74 98 04/19/17 07:00 04/19/17 12:15 04/19/17 07:00 04/19/17 09:19 04/19/17 07:00 Intake and Output: 04/19/17 04/19/17 06:59 18:59 Output Total 600 Balance -600 - Medications Medications: Current Medications Acetaminophen (Tylenol 325mg Tab) 650 mg PO Q6H PRN PRN Reason: Pain, moderate (4-7) Last Admin: 04/15/17 12:46 Dose: 650 mg Aspirin (Aspirin Chewable) 81 mg PO DAILY [facility] Last Admin: 04/19/17 09:20 Dose: 81 mg Carbidopa/Levodopa (Sinemet 10/100) 2 tab PO QPM [facility] Last Admin: 04/18/17 17:45 Dose: 2 tab Carbidopa/Levodopa (Sinemet 10/100) 2 tab PO DAILY@0800 [facility] Last Admin: 04/19/17 08:17 Dose: 2 tab Carbidopa/Levodopa (Sinemet 10/100) 1 tab PO DAILY@1200 [facility] Last Admin: 04/19/17 11:24 Dose: 1 tab Docusate Sodium (Colace) 100 mg PO BID [facility] Last Admin: 04/19/17 09:20 Dose: 100 mg Folic Acid (Folic Acid) 1 mg PO DAILY [facility] Last Admin: 04/19/17 09:20 Dose: 1 mg Gabapentin (Neurontin) 100 mg PO BID [facility] Last Admin: 04/19/17 09:20 Dose: 100 mg Heparin Sodium/Sodium Chloride (Heparin 77518 Units/250ml 1/2 Normal Saline) 25 ,000 units in 250 mls @ 7.348 mls/hr IV .Q24H PRN; Protocol; 9 UNITS/KG/HR PRN Reason: PROTOCOL Last Admin: 04/18/17 09:02 Dose: 9 units/kg/hr, 7.348 mls/hr Metoprolol Succinate (Toprol Xl) 12.5 mg PO DAILY [facility] Last Admin: 04/19/17 09:20 Dose: 12.5 mg Pantoprazole Sodium (Protonix Ec Tab) 40 mg PO DAILY [facility] Last Admin: 04/19/17 09:20 Dose: 40 mg Rosuvastatin Calcium (Crestor) 20 mg PO HS [facility] Last Admin: 04/18/17 21:48 Dose: 20 mg Warfarin Sodium (Coumadin) 5 mg PO 1800 [facility] Stop: 04/19/17 16:01 - Labs Labs: 04/19/17 06:31 04/19/17 06:31 PT 21.8 SECONDS (9.7-12.2) H D 04/19/17 06:31 INR 1.9 D 04/19/17 06:31 APTT 70 SECONDS (21-34) H D 04/19/17 06:31 Assessment and Plan - Assessment and Plan (Free Text) Assessment: A/P 71 yr old mal e with pmhx Parkinson's disease, dementia, HTN, hyperlipidemia. admitted s/p fall and syncope at home CT - chest Filling defects noted in both main pulmonary arteries and in the upper and lower pulmonary arteries consistent with pulmonary emboli.Trace right pleural effusion. Mild cardiomegaly. Mildly enlarged main pulmonary artery. and started on heparin drip bridge with coumadin INR - today 1.9 duplex scan LE - + for DVT and s/p IVC filter hgb stable - 12.5>12.4- 12.4 EEG- negative seen by Dr. Elizabeth, stable for discharge to [facility] today and continue coumadin 5 mg daily and will repeat INR w and Saturday all information sent to [facility]
[2017-04-19 16:57] VITALS: BP 153/76; PULSE 87; TEMP 98.5; O2SAT 94
--- NOTE | 2017-04-19 21:41 | PN ---
SUBJECTIVE: The patient denies chest pain. No reported groin bleeding. PHYSICAL EXAMINATION: VITAL SIGNS: Blood pressure 153/76, heart rate 87, temperature 98.5, respirations 20. HEENT: Normocephalic. CHEST: Clear. HEART: S1 and S2, regular. EXTREMITIES: No groin hematoma. No pedal edema. LABORATORY DATA: Hemoglobin, hematocrit, and white count are within normal limit. Platelet count is improved slightly to 115,000. His SMA-7 today is within normal limit except for anion gap of 9. INR is 1.9, PTT 70. ASSESSMENT: 1. Bilateral pulmonary emboli. 2. Left popliteal and peroneal vein deep venous thrombosis. 3. Parkinsonism. 4. Hypertension. RECOMMENDATIONS: Continue Toprol-XL 12.5 mg daily, continue Sinemet 2 tablets p.o. daily, Neurontin 100 mg twice a day, Coumadin 7.5 will be administered today and the patient is currently off heparin. Shilo Yanez MD
--- NOTE | 2017-04-20 13:31 | CARD ---
APPROVED REPORT EXAM: Two-dimensional and M-mode echocardiogram with Doppler and color Doppler. Other Information Quality : GoodRhythm : INDICATION Non STEMI HIGH TROPONIN RISK FACTORS Hypertension Hyperlipidemia 2D DIMENSIONS IVSd1.3 (0.7-1.1cm)LVDd4.3 (3.9-5.9cm) PWd1.0 (0.7-1.1cm)LVDs3.4 (2.5-4.0cm) FS (%) 20.2 %LVEF (%)41.6 (>50%) M-Mode DIMENSIONS Left Atrium (MM)3.14 (2.5-4.0cm)Aortic Root4.01 (2.2-3.7cm) Aortic Cusp Exc.2.44 (1.5-2.0cm) Mitral Valve MV E Mivgwprh02.4cm/sMV A Iaetluyo12.6cm/sE/A ratio0.7 TDI E/Lateral E'0.0E/Medial E'0.0 Tricuspid Valve TR Peak Cdybcxmp570bh/sTR Peak Gr.65lnKsHISO90oaBm LEFT VENTRICLE The left ventricle is normal size. There is normal left ventricular wall thickness. The systolic function is mildly impaired. Transmitral Doppler flow pattern is abnormal. AORTIC VALVE The aortic valve is normal in structure. MITRAL VALVE The mitral valve is normal in structure. <Conclusion> Mild LV systolic function. Diastolic dysfunction. Normal chamber size. No significant valvular abnormality seen.
--- NOTE | 2017-04-20 18:09 | DS ---
SUMMARY: This patient is a 71-year-old male with a history of Parkinson's and hypertension. The patient was brought to the emergency room because the patient had sustained a fall and the patient stated that he was still feeling dizzy as he was going up the stairs and fell and the patient had sustained a fracture of the ribs and the patient was evaluated and admitted to the the [facility]. In the hospital, the patient had elevated D-dimer and a CT angio was done, it was found that the patient had multiple pulmonary emboli and also the patient was found to have DVT to the right leg. The patient had a consult with Dr. Yanez, Cardiology and also with Dr. Haney, Hematology. The patient had received heparin IV as per protocol, but the patient also was put on Coumadin p.o. IVC filter was placed by Dr. Perez, but the patient is not fit to go to home at this point because of possibility of fall and environment. So, I decided to send the patient to rehab for fall precautions since the patient will need additionally anticoagulant for at least 3 to 6 months. The case was discussed with the patient and the family and they agreed and the patient is transferred then to [facility]. Stu Elizabeth MD
[2017-04-20 21:06] LABS: CARDIOLIPIN AB (IGA) <11 APL (<=11)
[2017-04-21 06:06] LABS: B2 GLYCOPROTEIN I AB(IGA) <9 SAU (<=20); B2 GLYCOPROTEIN I AB(IGG) <9 SGU (<=20); B2 GLYCOPROTEIN I AB(IGM) <9 SMU (<=20)
[2017-04-21 22:46] LABS: KAPPA/LAMBDA FREE RATIO 1.99 (0.26-1.65)
== END 2017-04-19 18:50 | DRG 252 ==
LOC: C.ER 16:17 → C.9E 20:17 → C.6T 20:48
PROVIDERS: ADMIT Specialist; ATTEND Specialist
PROC: 06H03DZ Insertion of Intraluminal Device into Inferior Vena Cava, Percutaneous Approach (ICD-10-PCS; principal; 2017-04-16 15:00)
DX: I82.432 Acute embolism and thrombosis of left popliteal vein (principal); I26.99 Other pulmonary embolism without acute cor pulmonale; G20 Parkinson's disease; G62.9 Polyneuropathy, unspecified; D69.6 Thrombocytopenia, unspecified; E83.51 Hypocalcemia; S22.39XA Fracture of one rib, unspecified side, initial encounter for closed fracture; W18.30XA Fall on same level, unspecified, initial encounter; I82.4Z2 Acute embolism and thrombosis of unspecified deep veins of left distal lower extremity; I11.9 Hypertensive heart disease without heart failure; E78.5 Hyperlipidemia, unspecified; F02.80 Dementia in other diseases classified elsewhere, unspecified severity, without behavioral disturbance, psychotic disturbance, mood disturbance, and anxiety

== ENCOUNTER 2017-05-13 13:22 | Inpatient (IN) | payer MEDICARE, OTHER ==
[2017-05-13] MEDS ORDERED: Carbidopa/Levodopa 25/250 PO ONE (14:26)
--- NOTE | 2017-05-13 14:35 | C.PDOC ---
History Of Present Illness 71 y/o male hx Parkinson's disease, and PE was sent by senior living to ED c/o tremors and both leg cramping. The patient has been been compliant with his Sinemet medication. The patient states that due to the decrease of the medication tremors continued to increase. The patient denies chest pain, SOB, fever, nausea, vomiting, and diarrhea. Time Seen by Provider: 05/13/17 13:52 Chief Complaint (Nursing): Medical Clearance History Per: Senior Analytical Chemist, Other (senior living ) Onset/Duration Of Symptoms: Days Current Symptoms Are (Timing): Still Present Additional History Per: Correction Past Medical History Reviewed: Historical Data, Nursing Documentation, Vital Signs Vital Signs: Last Vital Signs Temp 98.9 F 05/13/17 16:10 Pulse 89 05/13/17 16:10 Resp 20 05/13/17 16:10 BP 148/80 05/13/17 16:10 Pulse Ox 96 05/13/17 18:40 - Medical History PMH: HTN, Hypercholesterolemia, Parkinson's Disease, Peripheral Edema, Sexually Transmitted Disease () Denies: Anxiety, Chronic Kidney Disease Surgical History: No Surg Hx - [facility] Procedures INSERTION OF INTRALUM DEV INTO INF VENA CAVA, PERC APPROACH (04/14/17) Family History: States: Unknown Family Hx (no pertinent family history) - Social History Hx Tobacco Use: No Hx Alcohol Use: No Hx Substance Use: No - Immunization History Hx Tetanus Toxoid Vaccination: No Hx Influenza Vaccination: No Hx Pneumococcal Vaccination: No Review Of Systems Except As Marked, All Systems Reviewed And Found Negative. Constitutional: Negative for: Fever Cardiovascular: Negative for: Chest Pain Respiratory: Negative for: Cough, Shortness of Breath Gastrointestinal: Negative for: Nausea, Vomiting, Abdominal Pain, Diarrhea Musculoskeletal: Positive for: Leg Pain, Other (both leg cramping ) Skin: Negative for: Rash Physical Exam - Physical Exam Appears: Non-toxic, Other (restless tremors ) Skin: Warm, Dry Head: Normacephalic Eye(s): bilateral: Normal Inspection Oral Mucosa: Moist Neck: Supple Chest: Symmetrical Cardiovascular: Rhythm Regular Respiratory: Normal Breath Sounds, No Rales, No Rhonchi Gastrointestinal/Abdominal: Soft, No Tenderness, No Guarding, No Rebound Back: No CVA Tenderness Extremity: No Tenderness, No Pedal Edema, No Calf Tenderness, Capillary Refill ( 2<sec.), No Deformity, No Swelling Neurological/Psych: Oriented x3, Other (resting tremors noted ) Gait: Steady ED Course And Treatment - Laboratory Results Result Diagrams: 05/13/17 14:57 05/13/17 14:57 ECG Rhythm: Sinus Rhythm ( 89 bpm, normal interval, normal axis, and nonspecific t wave changes. ) O2 Sat by Pulse Oximetry: 96 (RA) - Other Rad Chest X- ray X-Ray: Viewed By Me Interpretation: HISTORY: chest pain. COMPARISON: Chest x-ray performed . TECHNIQUE: Chest, one view. FINDINGS: Examination limited by habitus and hypoinflation. LUNGS: Mild pulmonary venous congestion versus vascular crowding due to hypoinflation. Please note that chest x-ray has limited sensitivity for the detection of pulmonary masses. PLEURA: No significant pleural effusion identified. No definite pneumothorax . CARDIOVASCULAR: Mild cardiomegaly. OSSEOUS STRUCTURES: Question right 2nd and 3rd rib fracture deformities, age indeterminate. Correlate with physical exam. VISUALIZED UPPER ABDOMEN: Unremarkable. OTHER FINDINGS: None. IMPRESSION: Mild pulmonary venous congestion versus vascular crowding due to hypoinflation. Mild cardiomegaly. Question right 2nd and 3rd rib fracture deformities, age indeterminate. Correlate with physical exam. Progress Note: Dr. Campos was notified and wants to have admission and management of the Parkinson's. Disposition Discussed With : Stu Elizabeth Counseled Patient/Family Regarding: Studies Performed, Diagnosis - Disposition Disposition: HOSPITALIZED Disposition Time: 16:00 Condition: FAIR - Clinical Impression Clinical Impression: Tremors of nervous system, Parkinson disease, Pulmonary embolism - Scribe Statement The provider has reviewed the documentation as recorded by the Rakeshibosman Chopra
--- NOTE | 2017-05-13 14:37 | C.PDOC ---
Time Seen by Provider: 05/13/17 13:52 Chief Complaint (Nursing): Medical Clearance Past Medical History Vital Signs: Last Vital Signs Temp 98.2 F 05/13/17 13:42 Pulse 82 05/13/17 13:42 Resp 19 05/13/17 13:42 BP 132/62 05/13/17 13:42 Pulse Ox 96 05/13/17 13:42 - Medical History PMH: HTN, Hypercholesterolemia, Parkinson's Disease, Peripheral Edema, Sexually Transmitted Disease () Denies: Anxiety, Chronic Kidney Disease - [facility] Procedures INSERTION OF INTRALUM DEV INTO INF VENA CAVA, PERC APPROACH (04/14/17) Family History: States: Unknown Family Hx (no pertinent family history) - Social History Hx Tobacco Use: No Hx Alcohol Use: No Hx Substance Use: No - Immunization History Hx Tetanus Toxoid Vaccination: No Hx Influenza Vaccination: No Hx Pneumococcal Vaccination: No ED Course And Treatment O2 Sat by Pulse Oximetry: 96 Disposition Discussed With : Stu Elizabeth Doctor Will See Patient In The: Hospital Counseled Patient/Family Regarding: Studies Performed, Diagnosis - Disposition Disposition: HOSPITALIZED Disposition Time: 14:37 Condition: FAIR - Clinical Impression Clinical Impression: Tremors of nervous system, Parkinson disease, Pulmonary embolism
[2017-05-13 15:02] LABS: BASO # 0.1 K/uL (0.0-0.2); BASO % 1.4 % (0.0-2.0); EOS # 0.3 K/uL (0.0-0.7); EOS % 6.2 % (0.0-4.0); HEMOGLOBIN 14.7 g/dL (12.0-18.0); LYMPH # 1.2 K/uL (1.0-4.3); LYMPH % 22.7 % (20.0-40.0); MEAN CELL VOLUME 88.6 fL (80.0-94.0); MEAN CORPUSCULAR HGB CONC 32.8 g/dL (33.0-37.0); MONO # 0.5 K/uL (0.0-0.8); MONO % 10.4 % (0.0-10.0); NEUT # 3.1 K/uL (1.8-7.0); NEUT % 59.3 % (50.0-75.0); NRBC % 0.1 % (0.0-2.0); RBC 5.07 Mil/uL (4.40-5.90); RED CELL DISTRIBUTION WIDTH 14.8 % (11.5-14.5); WHITE BLOOD COUNT 5.2 K/uL (4.8-10.8)
[2017-05-13 15:23] LABS: ALB/GLOB RATIO 1.1 (1.0-2.1); ALBUMIN 4.2 g/dL (3.5-5.0); ALT/SGPT 25 U/L (21-72); AST/SGOT 40 U/L (17-59); BLOOD UREA NITROGEN 15 mg/dL (9-20); CALCIUM 8.6 mg/dl (8.6-10.4); GFR AFRICAN-AMERICAN > 60; GFR NON-AFRICAN AMERICAN > 60
--- NOTE | 2017-05-13 15:24 | RAD ---
HISTORY: chest pain COMPARISON: Chest x-ray performed 04/14/17. TECHNIQUE: Chest, one view. FINDINGS: Examination limited by habitus and hypoinflation. LUNGS: Mild pulmonary venous congestion versus vascular crowding due to hypoinflation. Please note that chest x-ray has limited sensitivity for the detection of pulmonary masses. PLEURA: No significant pleural effusion identified. No definite pneumothorax . CARDIOVASCULAR: Mild cardiomegaly. OSSEOUS STRUCTURES: Question right 2nd and 3rd rib fracture deformities, age indeterminate. Correlate with physical exam. VISUALIZED UPPER ABDOMEN: Unremarkable. OTHER FINDINGS: None. IMPRESSION: Mild pulmonary venous congestion versus vascular crowding due to hypoinflation. Mild cardiomegaly. Question right 2nd and 3rd rib fracture deformities, age indeterminate. Correlate with physical exam.
[2017-05-13 15:30] LABS: INR 1.4; PROTHROMBIN TIME 15.7 SECONDS (9.7-12.2)
[2017-05-13 16:25] VITALS: RESP 20
[2017-05-13 18:25] LABS: URINE BACTERIA RARE (<OCC); URINE BILIRUBIN NEGATIVE (NEGATIVE); URINE BLOOD NEGATIVE (NEGATIVE); URINE CLARITY Clear (Clear); URINE COLOR Amber (YELLOW); URINE GLUCOSE (UA) NORMAL (Normal); URINE LEUKOCYTE ESTERASE NEG Leu/uL (Negative); URINE NITRATE NEGATIVE (NEGATIVE); URINE PROTEIN NEGATIVE (NEGATIVE); URINE UROBILINOGEN NORMAL mg/dL (0.2-1.0)
[2017-05-14 09:24] LABS: HEMOGLOBIN 14.6 g/dL (12.0-18.0); MEAN CELL VOLUME 88.6 fL (80.0-94.0); MEAN CORPUSCULAR HEMOGLOBIN 29.2 pg (27.0-31.0); MEAN PLATELET VOLUME 10.5 fL (7.2-11.7); RBC 4.98 Mil/uL (4.40-5.90); WHITE BLOOD COUNT 5.6 K/uL (4.8-10.8)
[2017-05-14 09:25] LABS: INR 1.6; PROTHROMBIN TIME 17.7 SECONDS (9.7-12.2)
[2017-05-14 09:33] LABS: BLOOD UREA NITROGEN 16 mg/dL (9-20); CALCIUM 8.5 mg/dl (8.6-10.4); GFR AFRICAN-AMERICAN > 60; GFR NON-AFRICAN AMERICAN > 60
[2017-05-14] MEDS: Pantoprazole 40 mg EC Tab PO SCH (10:20)
[2017-05-14] MEDS: Metoprolol Succinate 12.5 mg XL PO SCH (12:38)
--- NOTE | 2017-05-15 00:03 | CARD ---
APPROVED REPORT EKG Measurement Heart [id number] <Conclusion> Sinus rhythm with short [place] Nonspecific T wave abnormality Abnormal ECG
--- NOTE | 2017-05-15 06:13 | HP ---
HISTORY OF PRESENT ILLNESS: This patient is a 71-year-old male with history of Parkinson disease, pulmonary embolism and DVT. Patient was brought to the Emergency Room because of a persistent tremor, and the patient was in fact admitted in the rehab because the patient was very susceptive of falling and was taking an anticoagulant due to the pulmonary embolism, but in the [facility], patient was seen by Dr. Avina, the neurologist, and medication was modified, but the patient remained with the tremor, and also the neurologist wanted the patient to see a neurosurgeon at [facility], but since the patient had an uncontrollable tremor, I have recommended the patient to go to for evaluation and to control his tremor and also continue the care for the pulmonary embolism, which was done recently. PAST MEDICAL HISTORY: History of Parkinson's and also history of hypertension and recent pulmonary embolism and also DVT and also patient has history of fracture of the ribs after fall at the same period that patient had the DVT and the PE. PAST SURGICAL HISTORY: Patient has an aortic filter in place at the time of the last admission. SOCIAL HISTORY: Patient has long history of alcohol abuse, but has stopped for long period, but no history of smoking, and patient is now retired. FAMILY HISTORY: No inherited disease. MEDICATIONS: Patient was on Sinemet, folic acid, gabapentin, aspirin, and also Coumadin. REVIEW OF SYSTEMS: RESPIRATORY SYSTEM: The patient denies shortness of breath at rest. CARDIOVASCULAR: The patient has been having some palpitation at the time. GASTROINTESTINAL: No history of constipation and no nausea. GENITOURINARY: Nocturia. NEUROLOGIC: Patient complaining of tremor of the upper extremities, but decreased by resting the upper extremity over a surface. PHYSICAL EXAMINATION: GENERAL: Patient is still alert and awake and oriented x3. VITAL SIGNS: Blood pressure was 146/82, pulse 87, respirations 20, temperature is 98.8. HEENT: Head is normocephalic, atraumatic, and there is some tremor of the head. NECK: Supple. No JVD. LUNGS: Clear. HEART: Regular rate and rhythm, positive murmur and some extra beat in systole noted. CHEST: He has some tenderness to the right side at the mid lateral right side of the chest wall. ABDOMEN: Soft, positive bowel sounds, and nontender. EXTREMITIES: There is no edema, but there is mild tenderness to the calf of the right lower extremity. NEUROLOGIC: He has a tremor of the upper extremities and that is subsided by resting over a hard surface and also patient is fully alert, awake and oriented x3. LABORATORY DATA: Patient had some tests done. Patient had a chest x-ray that has shown fracture of the second and third rib, age indeterminate. As I mentioned, it was about one and a half month ago. Labs, showed WBC 5.2, hemoglobin 14.7, hematocrit 44.9, and platelets 182. WBC is 5.6, hemoglobin is 14.6, hematocrit 44.1 and platelet 160. Coagulation, the PT was 15, today is 17.7 and INR is 1.6. IMPRESSION: So the patient is admitted with diagnoses of a persistent Parkinson tremor and pulmonary embolism under treatment and also deep vein thrombosis. PLAN: We are going to continue the patient on the Sinemet, which has controlled the Parkinson tremor and also Mirapex will be added, and the case also was discussed with the patient regarding the idea from Dr. Avina, the neurologist, to transfer to [facility]. Patient has issues, claiming that he does not want to have any surgical type of treatment, and also the case was discussed with Dr. Avina. Since they explained that the patient had a recent pulmonary embolism with rib fracture and on anticoagulant, so Dr. Avina agrees that at this point, it is not a good idea to have any surgical intervention for the patient, but that may need some surgical evaluation, and the plan will be that at another time if the patient agrees, we may send the patient for evaluation, not at this time now since patient is not stable enough for any other intervention, and also patient has adamantly refused to such idea. The case was discussed and reviewed with Ebonie Li, the nurse practitioner, and the medication ordered by Ebonie Li, the nurse practitioner in agreement with myself. Stu Elizabeth MD
[2017-05-15 07:36] LABS: HEMOGLOBIN 14.3 g/dL (12.0-18.0); MEAN CELL VOLUME 88.5 fL (80.0-94.0); MEAN CORPUSCULAR HEMOGLOBIN 29.4 pg (27.0-31.0); MEAN CORPUSCULAR HGB CONC 33.2 g/dL (33.0-37.0); MEAN PLATELET VOLUME 10.4 fL (7.2-11.7); RBC 4.87 Mil/uL (4.40-5.90); WHITE BLOOD COUNT 4.3 K/uL (4.8-10.8)
[2017-05-15 08:08] LABS: PROTHROMBIN TIME 27.7 SECONDS (9.7-12.2)
[2017-05-15 08:09] LABS: INR 2.4
[2017-05-15 08:19] LABS: BLOOD UREA NITROGEN 14 mg/dL (9-20); CALCIUM 8.4 mg/dl (8.6-10.4); GFR AFRICAN-AMERICAN > 60; GFR NON-AFRICAN AMERICAN 59
[2017-05-15] MEDS: Pantoprazole 40 mg EC Tab PO SCH (10:26)
[2017-05-15] MEDS: Metoprolol Succinate 12.5 mg XL PO SCH (10:53)
--- NOTE | 2017-05-15 19:03 | CON ---
DATE: NEUROLOGY CONSULTATION REASON FOR CONSULTATION: Tremors and Parkinson's disease. HISTORY OF PRESENT ILLNESS: The patient is a 71-year-old male who has been asked for evaluation of increasing tremors. Patient came to the emergency room with those complaints. Patient apparently has been seeing another neurologist as outpatient. Patient denied having any fever. Patient was recommended to go to the emergency room by the PMD because of increasing tremors. The patient denies having any headache or dizziness. REVIEW OF SYSTEMS: Denies any headache, dizziness, chest pain, shortness of breath, abdominal pain, constipation, diarrhea, dysuria, cough, or sputum production. PAST MEDICAL HISTORY: Includes Parkinson's disease, hypertension, pulmonary embolism, and DVT. PAST SURGICAL HISTORY: Includes aortic filter. CURRENT MEDICATIONS: Include aspirin, Colace, Crestor, folic acid, Mirapex 0.25 mg two times a day, Neurontin, pantoprazole, Sinemet two tablets twice a day and one tablet in the noon time, metoprolol, acetaminophen. ALLERGIES: NO KNOWN DRUG ALLERGIES. SOCIAL HISTORY: Denies smoking, use of alcohol, or illicit drugs. FAMILY HISTORY: Reviewed and noncontributory to the case. PHYSICAL EXAMINATION: GENERAL: The patient is an elderly male, lying in the bed, in no acute distress. VITAL SIGNS: Blood pressure is 132/77, heart rate is 86 per minute, breathing at the rate of 16 per minute, and temperature is 98.6 degrees Fahrenheit. HEENT: Head is normocephalic and atraumatic. NECK: Supple. There are no carotid bruits. LUNGS: Clear. CARDIOVASCULAR SYSTEM: S1 and S2 audible. No murmurs. ABDOMEN: Soft and nontender. Bowel sounds are present. NEUROLOGIC: Mental status: The patient is awake, alert, and oriented. Speech is fluent. He follows simple commands. Cranial nerve examination: Pupils are 3 mm, minimally reactive to light. Extraocular movements are intact. There is no facial asymmetry. Motor Examination: Tone is normal. Power is 4-5/5 all over. Positive resting tremors are noted in both upper extremities. Reflexes are +1 and symmetrical with absent ankle jerk. Plantars are downgoing bilaterally. Gait is deferred at the moment. Sensory examination is intact to soft touch bilaterally. LABORATORY DATA: Reviewed, shows WBC of 4.3, hemoglobin 14.3, hematocrit 43.1, and platelets of 157. His INR is 2.4. Sodium is 135, potassium 4.0, chloride 102, carbon dioxide 28, BUN of 14, creatinine 1.2, and glucose of 94. IMPRESSION: Parkinson's disease with exacerbation of tremors secondary to Parkinson's disease. RECOMMENDATIONS: 1. The patient's dose of Mirapex is to be increased to 0.25 mg three times a day. 2. Patient to be continued on Sinemet at current dose. 3. Patient to have physical therapy and possibly a good candidate for rehab placement. 4. Please continue supportive care and other treatment. Thank you for the opportunity to participate in the care of this patient. John Gallo MD
--- NOTE | 2017-05-15 23:04 | PN ---
DATE: SUBJECTIVE: Today patient was seen and examined earlier. Patient denied any shortness of breath. No chest pain. No headache. No palpitation. Patient still has some tremor of the upper extremity. PHYSICAL EXAMINATION: VITAL SIGNS: Patient has blood pressure of 107/68, pulse 82, respirations 20, temperature is 99 degree Fahrenheit. HEENT: Head is normocephalic. NECK: Supple. LUNGS: Clear. HEART: Regular rate and rhythm. No positive murmur. No extrasystole. No extra beat. ABDOMEN: Soft. Positive bowel sounds. No organomegaly. EXTREMITIES: There is no edema, but there is some mild tenderness to calf of the right lower extremity. NEUROLOGIC: Patient is A and O. Patient has uncontrolled tremor to the upper extremities that stops at rest. LABORATORY DATA: Patient had some tests done. Today, the PT is 27.7. The INR is 2.4. Chemistry: Sodium 135, potassium 4, chloride 102, bicarbonate 29, BUN 14, creatinine 1.2, and glucose is 94. CBC showed that WBC is 4.3, hemoglobin 14.3, hematocrit 42.1, and platelet is 157. ASSESSMENT AND PLAN: Patient now has improved somewhat regarding the tremor. Case was discussed with Dr. John Gallo and we have increased the Mirapex to three times a day and we are going to continue also the Sinemet. Continue with Coumadin 5 mg since the patient has pulmonary embolism. It is to be noted that the patient has also plans to return to home instead of to the rehab, thinking that he does to avoid falling on everything. So, we will consider in the morning what are in the future plans. Stu Elizabeth MD
[2017-05-16] MEDS: Pantoprazole 40 mg EC Tab PO SCH (09:07)
[2017-05-16] MEDS: Metoprolol Succinate 12.5 mg XL PO SCH (09:47)
--- NOTE | 2017-05-16 11:59 | CP.PCM.PN ---
Subjective - Date & Time of Evaluation Date of Evaluation: 05/16/17 Time of Evaluation: 11:59 - Subjective Subjective: PT SEEN BY DR. ENRIQUEZ TODAY AND CLEARED FOR D/C HOME W SERVICES; PER PT'S REQUEST. PT'S BROTHER, MR. NARANJO, WHO PT LIVES WITH, UPSET AND WANTS RUTH. PT' S BROTHER CAME IN AND DISCUSSED AT BEDSIDE WITH NATIONAL COVERAGE SPECIALIST AND PT PLAN FOR SAFE D/C. PT NOW AGREES TO RETURN TO [facility]; HE STILL HAS BED AND BELONGINGS THERE. DR. ENRIQUEZ NOTIFIED AND OK WITH PLAN. CM AND SW AWARE AND WILL ARRANGE TRANSPORTATION FOR [facility] FOR THIS EVENING. SEE D/C INSTRUCTIONS BELOW. NO FURTHER ORDERS. -PLACE UNDER THE SERVICE OF DR. ENRIQUEZ WHILE AT [facility]---CALL THE OFFICE TO NOTIFY DR. ENRIQUEZ OF BED ASSIGNMENT AND FOR ADMITTING ORDERS. -CONTINUE MEDICATIONS PER THE MED REC FORM. -FOLLOW UP WITH DR. NABIL BOSTON (NEUROLOGIST) AFTER DISCHARGE HOME FROM REHAB. -PHYSICAL THERAPY TOLERATED. -FALL PRECAUTIONS PER FACILITY PROTOCOL. -PLEASE HAVE PT/INR CHECKED ON 05/20/[address] ENRIQUEZ. NOTIFY DR. ENRIQUEZ OF RESULTS. -FOR ANY OTHER QUESTIONS, CONTACT DR. ENRIQUEZ IN THE OFFICE. Objective - Vital Signs/Intake and Output Vital Signs (last 24 hours): Temp Pulse Resp BP Pulse Ox 98.6 F 85 20 129/73 97 05/16/17 07:33 05/16/17 07:33 05/16/17 07:33 05/16/17 07:33 05/16/17 07:33 Intake and Output: 05/16/17 05/16/17 06:59 18:59 Intake Total 300 Output Total 350 Balance -50 - Medications Medications: Current Medications Acetaminophen (Tylenol 325mg Tab) 650 mg PO Q6H PRN PRN Reason: Pain, moderate (4-7) Aspirin (Aspirin Chewable) 81 mg PO DAILY [facility] Last Admin: 05/16/17 09:05 Dose: 81 mg Carbidopa/Levodopa (Sinemet 10/100) 1 tab PO DAILY@1200 [facility] Last Admin: 05/15/17 12:43 Dose: 1 tab Carbidopa/Levodopa (Sinemet 10/100) 2 tab PO DAILY@0800 [facility] Last Admin: 05/16/17 08:59 Dose: 2 tab Carbidopa/Levodopa (Sinemet 10/100) 2 tab PO QPM [facility] Last Admin: 05/15/17 18:00 Dose: 2 tab Docusate Sodium (Colace) 100 mg PO BID [facility] Last Admin: 05/16/17 09:05 Dose: 100 mg Folic Acid (Folic Acid) 1 mg PO DAILY [facility] Last Admin: 05/16/17 09:05 Dose: 1 mg Gabapentin (Neurontin) 100 mg PO BID [facility] Last Admin: 05/16/17 09:05 Dose: 100 mg Metoprolol Succinate (Toprol Xl) 12.5 mg PO DAILY [facility] Last Admin: 05/16/17 09:47 Dose: 12.5 mg Pantoprazole Sodium (Protonix Ec Tab) 40 mg PO DAILY [facility] Last Admin: 05/16/17 09:07 Dose: 40 mg Pramipexole Dihydrochloride (Mirapex) 0.25 mg PO TID [facility] Last Admin: 05/16/17 09:06 Dose: 0.25 mg Rosuvastatin Calcium (Crestor) 20 mg PO HS [facility] Last Admin: 05/15/17 21:58 Dose: 20 mg - Labs Labs: 05/15/17 07:12 05/15/17 07:12 PT 27.7 SECONDS (9.7-12.2) H D 05/15/17 07:12 INR 2.4 D 05/15/17 07:12 APTT 28 SECONDS (21-34) 05/13/17 14:57
[2017-05-16 12:08] LABS: INR 2.8
[2017-05-16 12:12] LABS: PROTHROMBIN TIME 32.6 SECONDS (9.7-12.2)
[2017-05-16 16:55] VITALS: BP 110/67; PULSE 80; TEMP 98.2; O2SAT 93
--- NOTE | 2017-05-17 07:43 | PN ---
DATE: SUBJECTIVE: Today, patient is alert and awake. Denied any shortness of breath. No chest pain. No dizziness. Patient has been having some tremor, but less than previously and denied any palpitation. PHYSICAL EXAMINATION VITAL SIGNS: Patient has blood pressure of 110/67, pulse is 80, respirations 20, temperature 98.2. NECK: Supple. No JVD. LUNGS: Clear. HEART: Regular rate and rhythm. ABDOMEN: Soft. No tenderness. No palpable mass. EXTREMITIES: There is no edema. There is mild tenderness to the anterior calf. NEUROLOGIC: Patient has intermittent tremor of the upper extremities. LABORATORY DATA: Showed that WBC is 4.3, hemoglobin 14.3, hematocrit 43.1, platelet is 167. Chemistry: Sodium 135, potassium 4, chloride 102, bicarb 28, BUN 14, creatinine 1.2 and glucose is 94. Coagulation showed that PT is 32.6, INR is 2.8. In fact, the patient wanted to go home, but however after talking with his brother and patient agreed to go back to [place] to continue anticoagulation therapy and so we considered discharging the patient now home today. So the case was reviewed and discussed with Ebonie Li, the nurse practitioner. Stu Elizabeth MD
--- NOTE | 2017-05-17 15:32 | DS ---
HISTORY OF PRESENT ILLNESS: This is a 71-year-old male with history of Parkinson disease and recent history of pulmonary embolism and rib fracture. Patient was in [facility] in order to receive anticoagulant therapy when the patient has had more tremor that was almost uncontrollable. So, the patient was sent to [facility] in order to control this tremor and also remove the pulmonary embolism. So, the patient had a consult with Dr. John Gallo, the neurologist. PHYSICAL EXAMINATION: . The patient had uncontrolled tremor of the upper extremity, was controlled when the patient rests his upper extremity against a hard surface. Patient had also a INR level that was 1.4. So, we have increased the Coumadin to the point that the PT/INR is today 2.8 and also, the patient has received Sinemet and Mirapex. Progressively, the patient's tumor has improved and discussed with his brother. The patient was sent to [facility] to continue the therapy. Stu Elizabeth MD
== END 2017-05-16 18:07 | DRG 56 ==
LOC: C.ER 13:22 → C.9E 14:35 → C.3T 15:13
PROVIDERS: ADMIT Specialist; ATTEND Specialist
DX: G20 Parkinson's disease (principal); I26.99 Other pulmonary embolism without acute cor pulmonale; I82.409 Acute embolism and thrombosis of unspecified deep veins of unspecified lower extremity; S22.41XA Multiple fractures of ribs, right side, initial encounter for closed fracture; S27.9XXA Injury of unspecified intrathoracic organ, initial encounter; E78.00 Pure hypercholesterolemia, unspecified; W19.XXXA Unspecified fall, initial encounter; I10 Essential (primary) hypertension; Z79.01 Long term (current) use of anticoagulants

== ENCOUNTER 2018-06-11 12:05 | Inpatient (IN) | payer OTHER ==
--- NOTE | 2018-06-11 13:08 | CT ---
Date of service: 06/11/2018 PROCEDURE: CT HEAD WITHOUT CONTRAST. HISTORY: SYNCOPE COMPARISON: Noncontrast head CT performed 04/15/17 TECHNIQUE: Axial computed tomography images were obtained through the head/brain without intravenous contrast. Radiation dose: Total exam DLP = 1143.86 mGy-cm. This CT exam was performed using one or more of the following dose reduction techniques: Automated exposure control, adjustment of the mA and/or kV according to patient size, and/or use of iterative reconstruction technique. FINDINGS: HEMORRHAGE: No intracranial hemorrhage. BRAIN: Diffuse atrophy with prominence of the ventricles and sulci noted. No mass effect or edema. Scattered periventricular and subcortical white matter hypodensities, which are nonspecific, but often seen with chronic microvascular ischemic disease. Please note that MRI with diffusion imaging is more sensitive in the detection of acute ischemic event. VENTRICLES: No hydrocephalus. CALVARIUM: Unremarkable. PARANASAL SINUSES: Unremarkable as visualized. No significant inflammatory changes. MASTOID AIR CELLS: Unremarkable as visualized. No inflammatory changes. OTHER FINDINGS: None. IMPRESSION: Generalized atrophy. Nonspecific white matter changes. No acute intracranial pathology identified.
[2018-06-11 13:13] LABS: BASO # 0.1 K/uL (0.0-0.2); BASO % 0.7 % (0.0-2.0); EOS # 0.3 K/uL (0.0-0.7); EOS % 3.6 % (0.0-4.0); HEMOGLOBIN 13.1 g/dL (12.0-18.0); MEAN CORPUSCULAR HEMOGLOBIN 29.3 pg (27.0-31.0); MEAN CORPUSCULAR HGB CONC 31.7 g/dL (33.0-37.0); MEAN PLATELET VOLUME 9.2 fL (7.2-11.7); MONO # 0.5 K/uL (0.0-0.8); MONO % 6.5 % (0.0-10.0); NEUT # 5.7 K/uL (1.8-7.0); NEUT % 76.2 % (50.0-75.0); RBC 4.48 Mil/uL (4.40-5.90); RED CELL DISTRIBUTION WIDTH 15.9 % (11.5-14.5)
[2018-06-11 13:14] LABS: MEAN CELL VOLUME 92.5 fL (80.0-94.0); WHITE BLOOD COUNT 7.5 K/uL (4.8-10.8)
[2018-06-11 13:22] LABS: INR 1.1; PROTHROMBIN TIME 12.2 SECONDS (9.7-12.2)
[2018-06-11] MEDS ORDERED: Carbidopa/Levodopa 25/250 PO STA (13:30)
[2018-06-11 13:33] LABS: ALBUMIN 4.4 g/dL (3.5-5.0); CALCIUM 8.5 mg/dl (8.6-10.4)
[2018-06-11 13:34] LABS: ALB/GLOB RATIO 1.4 (1.0-2.1)
[2018-06-11 13:44] LABS: CK-MB 1.14 ng/mL (0.0-3.38); TROPONIN I 0.027 ng/mL (0.00-0.120)
[2018-06-11 15:13] LABS: SQUAMOUS EPITHIAL 2 /hpf (0-5); URINE BILIRUBIN NEGATIVE (NEGATIVE); URINE BLOOD 3+ (NEGATIVE); URINE CLARITY Hazy (Clear); URINE COLOR Yellow (YELLOW); URINE GLUCOSE (UA) NORMAL (Normal); URINE LEUKOCYTE ESTERASE NEG Leu/uL (Negative); URINE PROTEIN 1+ mg/dL (NEGATIVE); URINE UROBILINOGEN NORMAL mg/dL (0.2-1.0)
--- NOTE | 2018-06-11 15:39 | C.PDOC ---
History Of Present Illness 72 year old male brought to the ED for evaluation of a possible syncopal episode today. As per patient, he has a history of Parkinson's Disease and ran out of his Sinemet two days ago. Today, he felt weak, tremulous and fell to the ground. He denies head injury or loss of consciousness. He is currently complaining of a mild frontal headache. Otherwise, he denies chest pain, palpitations, shortness of breath, facial droop, slurred speech, sensory changes, visual changes. Time Seen by Provider: 06/11/18 12:17 Chief Complaint (Nursing): Syncope History Per: Patient, EMS History/Exam Limitations: no limitations Onset/Duration Of Symptoms: Hrs Current Symptoms Are (Timing): Better Fall Associated With With Symptoms: No Injury As Result Of Fall Additional History Per: Patient Past Medical History Reviewed: Historical Data, Nursing Documentation, Vital Signs Vital Signs: Last Vital Signs Temp 98.2 F 06/11/18 12:16 Pulse 104 H 06/11/18 12:16 Resp 16 06/11/18 12:16 BP 116/69 06/11/18 12:16 Pulse Ox 94 L 06/11/18 12:16 - Medical History PMH: Arthritis, HTN, Hypercholesterolemia, Parkinson's Disease, Peripheral Edema, Sexually Transmitted Disease (1965-) Surgical History: No Surg Hx - [facility] Procedures INSERTION OF INTRALUM DEV INTO INF VENA CAVA, PERC APPROACH (04/14/17) Family History: States: Unknown Family Hx (no pertinent family history) - Social History Hx Tobacco Use: No Hx Alcohol Use: No Hx Substance Use: No - Immunization History Hx Tetanus Toxoid Vaccination: No Hx Influenza Vaccination: No Hx Pneumococcal Vaccination: No Review Of Systems Constitutional: Negative for: Fever, Chills Cardiovascular: Negative for: Chest Pain, Palpitations Respiratory: Negative for: Shortness of Breath Gastrointestinal: Negative for: Nausea, Vomiting, Abdominal Pain Neurological: Positive for: Headache (mild, frontal ), Other (positive for: B/L weakness and tremors). Negative for: Incoordination, Altered Mental Status, Dizziness Physical Exam - Physical Exam Appears: Well, Non-toxic, No Acute Distress Skin: Normal Color, Warm, Dry, No Rash Head: Atraumatic, Normacephalic Eye(s): bilateral: Normal Inspection ((-) nystagmus), PERRL, EOMI Oral Mucosa: Moist Neck: Supple Cardiovascular: Rhythm Regular Respiratory: Normal Breath Sounds, No Rales, No Rhonchi, No Wheezing Gastrointestinal/Abdominal: Normal Exam, Bowel Sounds, Soft, No Tenderness Extremity: No Tenderness, Capillary Refill, Other (upper extremities are contracted, (+) resting tremor) Neurological/Psych: Oriented x3, Normal Speech, Normal Cognition, Other (occasional lip smacking and involuntary movement of lips and tongue noted, occasional resting tremors noted ) ED Course And Treatment - Laboratory Results Result Diagrams: 06/16/18 07:27 06/16/18 07:27 Lab Results: PT 12.2 SECONDS (9.7-12.2) 06/11/18 13:06 INR 1.1 06/11/18 13:06 APTT 27 SECONDS (21-34) 06/11/18 13:06 Troponin I 0.0270 ng/mL (0.00-0.120) 06/11/18 13:06 Total Bilirubin 1.0 mg/dL (0.2-1.3) 06/11/18 13:06 AST 28 U/L (17-59) 06/11/18 13:06 ALT 12 U/L (21-72) L D 06/11/18 13:06 Alkaline Phosphatase 59 U/L (38-126) 06/11/18 13:06 Total Protein 7.5 g/dL (6.3-8.3) 06/11/18 13:06 Albumin 4.4 g/dL (3.5-5.0) 06/11/18 13:06 Globulin 3.1 gm/dL (2.2-3.9) 06/11/18 13:06 Albumin/Globulin Ratio 1.4 (1.0-2.1) 06/11/18 13:06 Urine Color Yellow (YELLOW) 06/11/18 15:04 Urine Clarity Hazy (Clear) 06/11/18 15:04 Urine pH 6.0 (5.0-8.0) 06/11/18 15:04 Ur Specific Winfred 1.018 (1.003-1.030) 06/11/18 15:04 Urine Protein 1+ mg/dL (NEGATIVE) H 06/11/18 15:04 Urine Glucose (UA) Normal mg/dL (Normal) 06/11/18 15:04 Urine Ketones Trace mg/dL (NEGATIVE) 06/11/18 15:04 Urine Blood 3+ (NEGATIVE) H 06/11/18 15:04 Urine Nitrate Negative (NEGATIVE) 06/11/18 15:04 Urine Bilirubin Negative (NEGATIVE) 06/11/18 15:04 Urine Urobilinogen Normal mg/dL (0.2-1.0) 06/11/18 15:04 Ur Leukocyte Esterase Neg Shoshana/uL (Negative) 06/11/18 15:04 Urine WBC (Auto) 1 /hpf (0-5) 06/11/18 15:04 Urine RBC (Auto) 404 /hpf (0-3) H 06/11/18 15:04 Ur Squamous Epith Cells 2 /hpf (0-5) 06/11/18 15:04 Hyaline Casts 11-20 /lpf (0-2) H 06/11/18 15:04 ECG: Interpreted By Me, Viewed By Me (sinus rhythm 99bpm, normal axis, short LA interval, no delta waves, T wave inversions aVL, V4-V5, no acute ST changes) ECG Interpretation: Abnormal O2 Sat by Pulse Oximetry: 94 (RA) Pulse Ox Interpretation: Normal - CT Scan/US CT Head Other Rad Studies (CT/US): Read By Radiologist, Radiology Report Reviewed CT/US Interpretation: Date of service: 06/11/2018. PROCEDURE: CT HEAD WITHOUT CONTRAST. HISTORY: SYNCOPE. COMPARISON: Noncontrast head CT performed 03/29 12/13. TECHNIQUE: Axial computed tomography images were obtained through the head/brain without intravenous contrast. Radiation dose: Total exam DLP = 1143.86 mGy-cm. This CT exam was performed using one or more of the following dose reduction techniques: Automated exposure control, adjustment of the mA and/or kV according to patient size, and/or use of iterative reconstruction technique. FINDINGS: HEMORRHAGE: No intracranial hemorrhage. BRAIN: Diffuse atrophy with prominence of the ventricles and sulci noted. No mass effect or edema. Scattered periventricular and subcortical white matter hypodensities, which are nonspecific, but often seen with chronic microvascular ischemic diseas e. Please note that MRI with diffusion imaging is more sensitive in the detection of acute ischemic event. VENTRICLES: No hydrocephalus. CALVARIUM: Unremarkable. PARANASAL SINUSES: Unremarkable as visualized. No significant inflammatory changes. MASTOID AIR CELLS: Unremarkable as visualized. No inflammatory changes. OTHER FINDINGS: None. IMPRESSION: Generalized atrophy. Nonspecific white matter changes. No acute intracranial pathology identified. Progress Note: Bloodwork, UA, EKG, CT Head ordered and reviewed. Patient given IV NS bolus, PO Sinement and PO neurontin. - Physician Consult Information Physician Contacted: Stu Elizabeth Outcome Of Conversation: Discussed patient with PMD, would like obs telemetry for patient - renal insufficiency, fall, Parkinson's disease, possible syncope. Disposition - Disposition Disposition: HOSPITALIZED Disposition Time: 15:39 Condition: STABLE - Clinical Impression Clinical Impression: Acute renal insufficiency, Parkinsons disease, Fall - Scribe Statement The provider has reviewed the documentation as recorded by the Scribe (Tanisha Louis) Provider Attestation: All medical record entries made by the Scribe were at my direction and personally dictated by me. I have reviewed the chart and agree that the record accurately reflects my personal performance of the history, physical exam, medical decision making, and the department course for this patient. I have also personally directed, reviewed, and agree with the discharge instructions and disposition. Decision To Admit - Pt Status Changed To: Hospital Disposition Of: Observation - . Bed Request Type: Telemetry Admitting Physician: Stu Elizabeth Patient Diagnosis: Fall, Acute renal insufficiency, Parkinsons disease
[2018-06-11] MEDS ORDERED: Sodium Chloride 0.9% 500 ML IV ONE (15:45)
[2018-06-11] MEDS ORDERED: Sodium Chloride 0.9% 1,000 ML IV SCH ×2 (17:00)
[2018-06-11] MEDS: Carbidopa/Levodopa 25/100 CR PO SCH (18:30)
[2018-06-12 06:53] LABS: BASO % 0.8 % (0.0-2.0); EOS # 0.5 K/uL (0.0-0.7); EOS % 7.7 % (0.0-4.0); LYMPH # 1.4 K/uL (1.0-4.3); LYMPH % 22.1 % (20.0-40.0); MEAN CELL VOLUME 91.1 fL (80.0-94.0); MEAN CORPUSCULAR HEMOGLOBIN 29.1 pg (27.0-31.0); MEAN PLATELET VOLUME 9.3 fL (7.2-11.7); MONO # 0.6 K/uL (0.0-0.8); MONO % 10.2 % (0.0-10.0); NEUT # 3.6 K/uL (1.8-7.0); NEUT % 59.2 % (50.0-75.0); NRBC % 0.1 % (0.0-2.0); RBC 4.47 Mil/uL (4.40-5.90); RED CELL DISTRIBUTION WIDTH 15.7 % (11.5-14.5); WHITE BLOOD COUNT 6.1 K/uL (4.8-10.8)
[2018-06-12 06:55] LABS: CALCIUM 8.4 mg/dl (8.6-10.4)
[2018-06-12] MEDS: Pantoprazole 40 mg EC Tab PO SCH (09:26)
[2018-06-12] MEDS: Carbidopa/Levodopa 25/100 CR PO SCH ×3 (09:43→19:21)
[2018-06-12] MEDS ORDERED: Metoprolol Succinate 12.5 mg XL Tab PO SCH (10:00)
[2018-06-12] MEDS ORDERED: Pneumococcal 23-Valent Vaccine IM ONE (10:00)
[2018-06-12 12:05] LABS: INR 1.2; PROTHROMBIN TIME 13.6 SECONDS (9.7-12.2)
[2018-06-12] MEDS ORDERED: Enoxaparin 30 mg Syringe SC SCH (14:30)
--- NOTE | 2018-06-12 19:59 | CARD ---
APPROVED REPORT Date of service: 06/12/2018 EXAM: Two-dimensional and M-mode echocardiogram with Doppler and color Doppler. INDICATION Syncope RISK FACTORS Hypertension Hyperlipidemia 2D DIMENSIONS IVSd1.3 (0.7-1.1cm)LVDd3.9 (3.9-5.9cm) PWd1.1 (0.7-1.1cm)LA Nwmvcn02 (18-58mL) LVDs2.3 (2.5-4.0cm)FS (%) 40.4 % LVEF (%)71.7 (>50%)LVEF (West's)65.02 % M-Mode DIMENSIONS Left Atrium (MM)3.49 (2.5-4.0cm)IVSd0.97 (0.7-1.1cm) Aortic Root4.22 (2.2-3.7cm)LVDd4.67 (4.0-5.6cm) Aortic Cusp Exc.2.23 (1.5-2.0cm)PWd0.95 (0.7-1.1cm) FS (%) 39 %LVDs2.87 (2.0-3.8cm) LVEF (%)69 (>50%) Mitral Valve MV E Qticapru75.9cm/sMV A Mqkwylsy26.7cm/sE/A ratio0.7 TDI Lateral E' Peak V8.00cm/sMedial E' Peak V4.54cm/sE/Lateral E'7.5 E/Medial E'13.2 Tricuspid Valve TR Peak Hgsoqmtv180br/sTR Peak Gr.[id number] LEFT VENTRICLE The left ventricle is normal size. There is normal left ventricular wall thickness. The left ventricular function is normal. The left ventricular ejection fraction is within the normal range. 62% No regional wall motion abnormalities noted. Transmitral Doppler flow pattern is Grade I-abnormal relaxation pattern. No left ventricle thrombus noted on this study. There is no ventricular septal defect visualized. There is no left ventricular aneurysm. There is no mass noted in the left ventricle. RIGHT VENTRICLE The right ventricle is normal size. There is normal right ventricular wall thickness. The right ventricular systolic function is normal. ATRIA The left atrium size is normal. The right atrium size is normal. The interatrial septum is intact with no evidence for an atrial septal defect. AORTIC VALVE The aortic valve is normal in structure and function. No aortic regurgitation is present. There is no aortic valvular stenosis. There is no aortic valvular vegetation. MITRAL VALVE The mitral valve is normal in structure and function. There is no evidence of mitral valve prolapse. There is no mitral valve stenosis. There is trace mitral valve regurgitation noted. TRICUSPID VALVE The tricuspid valve is normal in structure and function. There is mild tricuspid valve regurgitation noted. There is no tricuspid valve prolapse or vegetation. There is no tricuspid valve stenosis. PULMONIC VALVE The pulmonary valve is normal in structure and function. There is no pulmonic valvular regurgitation. There is no pulmonic valvular stenosis. GREAT VESSELS The aortic root is normal in size. The ascending aorta is mildy dilated, 4.2 cm. The pulmonary artery is normal. The IVC is normal in size and collapses >50% with inspiration. PERICARDIAL EFFUSION The pericardium appears normal. There is no pleural effusion. <Conclusion> The ascending aorta is mildy dilated, 4.2 cm. The left ventricular function is normal. Transmitral Doppler flow pattern is Grade I-abnormal relaxation pattern. Normal doppler.
--- NOTE | 2018-06-12 20:12 | CARD ---
APPROVED REPORT Date of service: 06/11/2018 EKG Measurement Heart [id number] OH [id number] [id number] <Conclusion> Sinus rhythm with short OH Nonspecific T wave abnormality Abnormal ECG
--- NOTE | 2018-06-13 01:30 | CON ---
DATE: 06/12/2018 REASON FOR CONSULTATION: Possible syncopal episode. HISTORY OF PRESENT ILLNESS: The patient is a 72-year-old male from [facility], who has history of Parkinsonism, on Sinemet, admitted because of recent fall. The patient denies sustaining any injury or loss of consciousness. He did report mild frontal headache in the emergency room. Denies any chest pain or shortness of breath. Today, he is complaining of bilateral leg pain. SOCIAL HISTORY: Nonsmoker, nondrinker. MEDICATIONS: Aspirin 81 mg once a day, Colace 100 mg twice a day, Crestor 10 mg once a day, folic acid 1 mg once a day, Neurontin 100 mg twice a day, Toprol XL 12.5 mg once a day, Sinemet 1 tablet t.i.d., Protonix 40 mg p.o. once a day. REVIEW OF SYSTEMS: No nausea or vomiting. No fever or chills. PHYSICAL EXAMINATION: GENERAL: The patient is an elderly male, who does not appear to be in any distress. VITAL SIGNS: Blood pressure 133/74, heart rate 95, temperature 98.7, respirations 20. HEENT: Loss of left nasolabial fold. CHEST: Clear. HEART: S1, S2, regular. ABDOMEN: Soft. EXTREMITIES: 1+ pitting edema and poor distal pulses. LABORATORY DATA: Today's hemoglobin and hematocrit 13 and 40.8, white count 6.1, platelet count 129,000. SMA-7: Sodium 139, potassium 4, chloride 105, CO2 of 25, glucose 109, BUN 23, creatinine 1.4. Yesterday's creatinine was 2.1. Troponin is 0.027. INR is 1.2. PTT 27. Urinalysis revealed high hyaline casts and high RBCs. EKG revealed sinus rhythm with short MD interval. Nonspecific T-wave changes. Head CT scan without contrast, no acute findings. Venous Doppler of lower extremities in 03/2017, no evidence of DVT on the right side and on the left side there was acute thrombosis of the left popliteal and peroneal vein with severe reduction in venous return. ASSESSMENT: 1. Recent fall episode. 2. History of acute left popliteal vein deep venous thrombosis in 03/2017, i.e., some 14 months ago. 3. Parkinsonism. RECOMMENDATIONS: Continue Sinemet 1 tablet t.i.d., Toprol XL 12.5 mg once a day, aspirin 81 mg once a day, Crestor 10 mg once a day, start Lovenox at 30 mg daily. I will review the echocardiographic study performed today and obtain serum D-dimer as well as repeat venous Doppler of the lower extremities. Shilo Yanez MD
--- NOTE | 2018-06-13 04:14 | HP ---
HISTORY OF PRESENT ILLNESS: This patient is a 72-year-old male with history of Parkinson and hypertension and the patient came to the emergency room because the patient has a tendency to pass out. So, the patient was seen in and then EMS was called and the patient was brought to the hospital. However, the patient denied any chest pain or palpitation, but felt dizzy and the patient is still did not take his medication mainly the carbidopa levodopa. The patient went to the emergency room. PAST MEDICAL HISTORY: As I mentioned, history of hypertension, atrial fibrillation, seizure, and also history of Parkinson disease. SOCIAL HISTORY: The patient used to drink but has stopped it for many years. The patient has children and lives with family. MEDICATIONS: The patient was on multiple medications; among them the patient was on warfarin, Crestor, gabapentin, and also the patient was on Mirapex, metoprolol, carbidopa, Sinemet, acetaminophen, and gabapentin. REVIEW OF SYSTEMS: RESPIRATORY: The patient denies any shortness of breath. CARDIOVASCULAR: The patient is having no chest pain. GI: The patient has been having some epigastric discomfort. : No dysuria, but increased urinary infrequency mainly at night. NEUROLOGIC: The patient is complaining of tremor at times and also some difficulty walking, some tendency of fall. PHYSICAL EXAMINATION: GENERAL: The patient is alert, awake, and oriented x3. HEENT: Head is normocephalic. NECK: Supple. No JVD. LUNGS: Clear. HEART: Irregular. ABDOMEN: Soft. Mild epigastric tenderness. EXTREMITIES: There is no edema. NEUROLOGIC: There is a slight tremor of the upper extremities. The patient now is on Sinemet. LABORATORY DATA: The patient's blood work has shown WBC of 7.5, hemoglobin 13.1, hematocrit 41.4, and platelet was 134. Chemistry; sodium 139, potassium 3.7, chloride 103, bicarbonate 25, BUN 25, creatinine 2.1, and glucose 134. CK was 384, alkaline phosphatase is 59. The patient had also a CAT scan, a CT of the head; that was in the emergency room and that showed generalized atrophy, nonspecific white matter changes, and no acute intracranial pathology is identified. IMPRESSION: 1. Near-syncope. 2. Parkinson disease. 3. Hypertension. 4. Dyslipidemia. 5. Atrial fibrillation. 6. Dementia. PLAN: The patient will have a consult with Dr. Yanez, algologist. Stu Elizabeth MD
[2018-06-13 06:29] LABS: INR 1.3; PROTHROMBIN TIME 14.2 SECONDS (9.7-12.2)
[2018-06-13] MEDS: Pantoprazole 40 mg EC Tab PO SCH (09:09)
[2018-06-13] MEDS: Carbidopa/Levodopa 25/100 CR PO SCH ×3 (09:10→17:24)
[2018-06-13] MEDS ORDERED: Pneumococcal 23-Valent Vaccine IM ONE (12:00)
[2018-06-13] MEDS ORDERED: Influenza Vaccine 60 mcg/0.5 mL SYR (4YR UP) IM ONE (12:00)
--- NOTE | 2018-06-13 14:56 | VASCLAB ---
Date of service: 06/13/2018 PROCEDURE: Carotid Duplex Exam. HISTORY: SYNCOPE COMPARISON: None available. TECHNIQUE: Grayscale and duplex Doppler evaluation of the cervical carotid and vertebral arteries were performed. The common carotid, carotid bifurcations and cervical Internal Carotid Artery (ICA) and proximal External Carotid Artery (ECA) were evaluated. The vertebral arteries were evaluated for gross patency and flow direction. Report prepared by Antwon Thomas, BS, RVT FINDINGS: RIGHT CAROTID ARTERIES: 1. Common Carotid Artery: No significant focal plaque formation of the right common carotid artery. Maximum Peak Systolic velocity: 80 cm/sec: End-diastolic velocity 16 cm/sec. 2. Carotid Bifurcation: plaque formation. Maximum Peak Systolic velocity: 49 cm/sec: End-diastolic velocity 11 cm/sec. 3. Internal Carotid Artery: Plaque description: 3.1. Proximal Segment: Peak systolic velocity 43 cm/sec: End-diastolic velocity 15 cm/sec - % stenosis 0-15% 3.2. Middle Segment: Peak systolic velocity 56 cm/sec: End-diastolic velocity 23 cm/sec - % stenosis 0-15% 3.3. Distal Segment: Peak systolic velocity 32 cm/sec: End-diastolic velocity 12 cm/sec - % stenosis 0-15% 4. External Carotid Artery: No significant focal plaque formation. Peak systolic velocity 46 cm/sec 5. ICA/CCA Ratio: 0.7 LEFT CAROTID ARTERIES: 1. Common Carotid Artery: No significant focal plaque formation of the left common carotid artery. Maximum Peak Systolic velocity: 96 cm/sec: End-diastolic velocity 17 cm/sec. 2. Carotid Bifurcation: plaque formation. Maximum Peak Systolic velocity: 73 cm/sec: End-diastolic velocity 15 cm/sec. 3. Internal Carotid Artery: Plaque description: 3.1. Proximal Segment: Peak systolic velocity 58 cm/sec: End-diastolic velocity 21 cm/sec - % stenosis 0-15% 3.2. Middle Segment: Peak systolic velocity 57 cm/sec: End-diastolic velocity 18 cm/sec - % stenosis 0-15% 3.3. Distal Segment: Peak systolic velocity 69 cm/sec: End-diastolic velocity 21 cm/sec - % stenosis 0-15% 4. External Carotid Artery: No significant focal plaque formation. Peak systolic velocity 78 cm/sec 5. ICA/CCA Ratio: 0.8 VERTEBRAL ARTERIES: 1. Right Vertebral Artery: The right vertebral artery flow direction is antegrade. 2. Left Vertebral Artery: The left vertebral artery flow direction is antegrade. OTHER FINDINGS: 1. Right Brachial Blood pressure: mmHg. 2. Left Brachial Blood pressure: mmHg. 3. No atherosclerotic calcification present IMPRESSION: RIGHT: Duplex scan does not suggest hemodynamically significant stenosis of the right extracranial carotid arteries. LEFT: Duplex scan does not suggest hemodynamically significant stenosis of the left extracranial carotid arteries.
--- NOTE | 2018-06-13 14:57 | VASCLAB ---
Date of service: 06/13/2018 PROCEDURE: Lower Extremity Venous Duplex Exam. HISTORY: r/o DVT PRIORS: None. TECHNIQUE: Bilateral common femoral, femoral, popliteal and posterior tibial, peroneal and great saphenous veins were evaluated. Flow was assessed with color Doppler, compressibility, assessment of phasic flow and augmentation response. Report prepared by Antwon Thomas, BS, RVT FINDINGS: RIGHT: 1. Common Femoral Vein: 1.1. Compressibility - Fully compressible: Thrombus - None : Flow - Phasic: Augmentation -Normal: Reflux - None. 2. Femoral Vein: 2.1. Compressibility - Fully compressible: Thrombus - None : Flow - Phasic: Augmentation -Normal: Reflux - None. 3. Popliteal Vein: 3.1. Compressibility - Fully compressible: Thrombus - None : Flow - Phasic: Augmentation -Normal: Reflux - None. 4. Posterior Tibial Vein: 4.1. Compressibility - Fully compressible: Thrombus - None: Flow - Phasic: Augmentation -Normal: Reflux - None. 5. Peroneal Vein: 5.1. Compressibility - Fully compressible: Thrombus - None: Flow - Phasic: Augmentation -Normal: Reflux - None. 6. Great Saphenous Vein: 6.1. Compressibility - Fully compressible: Thrombus - None: Flow - Phasic: Augmentation - Normal: Reflux - None. LEFT: 1. Common Femoral Vein: 1.1. Compressibility - Fully compressible: Thrombus - None: Flow - Phasic: Augmentation -Normal: Reflux - None. 2. Femoral Vein: 2.1. Compressibility - Fully compressible: Thrombus - None: Flow - Phasic: Augmentation -Normal: Reflux - None. 3. Popliteal Vein: 3.1. Compressibility - Fully compressible: Thrombus - None : Flow - Phasic: Augmentation -Normal: Reflux - Yes. 4. Posterior Tibial Vein: 4.1. Compressibility - Fully compressible: Thrombus - None: Flow - Phasic: Augmentation -Normal: Reflux - None. 5. Peroneal Vein: 5.1. Compressibility - Fully compressible: Thrombus - None: Flow - Phasic: Augmentation -Normal: Reflux - None. 6. Great Saphenous Vein: 6.1. Compressibility - Fully compressible: Thrombus - None: Flow - Phasic: Augmentation - Normal: Reflux - None. OTHER FINDINGS: Right: None significant. Left: None significant. IMPRESSION: Right: No evidence of deep or superficial vein thrombosis of the right lower extremity. Normal valve function noted of the right side. Left: No evidence of deep or superficial vein thrombosis of the left lower extremity. Valvular incompetence of the left popliteal vein.
--- NOTE | 2018-06-13 15:29 | RAD ---
Date of service: 06/13/2018 HISTORY: Dilated air COMPARISON: 05/13/2017. TECHNIQUE: Chest PA and lateral FINDINGS: LINES AND TUBES: None. LUNG AND PLEURA: The lungs are well inflated and clear. There is mild pulmonary venous congestion. No pleural effusion or pneumothorax. HEART AND MEDIASTINUM: There is mild cardiomegaly and prominent central vasculature. There is unfolding of the aorta. No aortic atherosclerotic calcifications present. The hilar and mediastinal contours are within normal limits. SKELETAL STRUCTURES: The bony structures are within normal limits for the patient's age. VISUALIZED UPPER ABDOMEN: Normal. OTHER FINDINGS: None. IMPRESSION: No active pulmonary disease. Mild cardiomegaly and pulmonary venous congestion. Unfolding of the aorta.
--- NOTE | 2018-06-13 18:19 | PN ---
DATE: 06/13/2018 SUBJECTIVE: The patient denies leg pain, chest pain or abdominal pain. PHYSICAL EXAMINATION: VITAL SIGNS: Blood pressure 136/77, heart rate 90, temperature 98.6, respirations 20. HEENT: Normocephalic. CHEST: Minimal rhonchi. CARDIOPULMONARY: S1 and S2, regular. EXTREMITIES: 1+ pitting edema. LABORATORY DATA: Today's blood sugar is 112. The preliminary report of venous Doppler of lower extremity, no DVT. The preliminary report of carotid Doppler, no hemodynamically significant disease. Echocardiographic study reports normal left ventricular systolic function, ascending aorta was mildly dilated at 4.2 cm. ASSESSMENT: 1. Status post fall. 2. Parkinsonism. 3. History of deep venous thrombosis in 03/2017, study, preliminary report is negative for deep venous thrombosis. 4. Dilated aortic root. 5. Hypertension. RECOMMENDATIONS: Continue aspirin 81 mg once day, Crestor 10 mg once a day, Lopressor 12.5 mg twice a day, Sinemet 1 tablet t.i.d. Obtain chest x-ray bilateral and if there is any concern about widened mediastinum or aortic aneurysm, I will proceed with chest CT scan with IV contrast. Shilo Yanez MD
--- NOTE | 2018-06-13 21:12 | PN ---
DATE: 06/13/2018 SUBJECTIVE: Today, the patient is more alert and awake, he worried about medications, but the patient denies any shortness of breath, dizziness or chest pain. PHYSICAL EXAMINATION: VITAL SIGNS: The patient has blood pressure of 117/72, pulse is 95, respirations 20, temperature 97.2. NECK: Supple. LUNGS: Clear. HEART: Regular rate and rhythm. Positive murmur. Positive extra systole. ABDOMEN: Soft. Mildly obese. EXTREMITIES: There is no edema. NEUROLOGIC: There is fine tremor of the upper extremities and gait is somewhat unsteady. PLAN: We are going to re-adjust the patient's medications, he has been on Sinemet. Also the chest x-ray the patient has done was reported as no significant lesion. It stated there is mild cardiomegaly and pulmonary venous congestion, and there is no acute pulmonary disease. As I mentioned, we are going to continue the current medication, and if possible the patient may continue physical therapy and the patient will have home PT. The case was discussed with Tiana Duarte, the nurse practitioner. Stu Elizabeth MD
[2018-06-14 07:15] LABS: BASO # 0.1 K/uL (0.0-0.2); BASO % 0.8 % (0.0-2.0); EOS # 0.5 K/uL (0.0-0.7); LYMPH # 1.5 K/uL (1.0-4.3); MEAN CELL VOLUME 91.4 fL (80.0-94.0); MEAN CORPUSCULAR HEMOGLOBIN 29.4 pg (27.0-31.0); MEAN CORPUSCULAR HGB CONC 32.2 g/dL (33.0-37.0); MEAN PLATELET VOLUME 9.9 fL (7.2-11.7); MONO # 0.7 K/uL (0.0-0.8); MONO % 9.5 % (0.0-10.0); NEUT # 4.5 K/uL (1.8-7.0); NEUT % 61.7 % (50.0-75.0); NRBC % 0.1 % (0.0-2.0); RBC 4.43 Mil/uL (4.40-5.90); RED CELL DISTRIBUTION WIDTH 15.4 % (11.5-14.5); WHITE BLOOD COUNT 7.3 K/uL (4.8-10.8)
[2018-06-14 07:21] LABS: ALB/GLOB RATIO 1.3 (1.0-2.1); ALBUMIN 4.7 g/dL (3.5-5.0); ALT/SGPT 15 U/L (21-72); AST/SGOT 34 U/L (17-59); BLOOD UREA NITROGEN 23 mg/dL (9-20); CALCIUM 8.9 mg/dl (8.6-10.4); GFR NON-AFRICAN AMERICAN 54; HDL CHOLESTEROL 51 mg/dL (30-70)
[2018-06-14 07:32] LABS: LDL CHOLESTEROL 82 mg/dL (0-129)
[2018-06-14] MEDS: Carbidopa/Levodopa 25/100 CR PO SCH ×2 (09:26→17:38)
[2018-06-14] MEDS: Pantoprazole 40 mg EC Tab PO SCH (09:26)
[2018-06-14] MEDS ORDERED: Bisacodyl 5mg EC Tab PO ONE (10:15)
[2018-06-14] MEDS ORDERED: Iodixanol 320 MG/ML 100 ML BOTTLE IV ONE (16:22)
--- NOTE | 2018-06-14 18:09 | PN ---
DATE: 06/14/2018 SUBJECTIVE: The patient denies chest pain or abdominal pain. PHYSICAL EXAMINATION: VITAL SIGNS: Blood pressure 129/78, heart rate 86, temperature 98.9, respirations 20. HEENT: Normocephalic. CHEST: Clear. HEART: S1 and S2, regular. EXTREMITIES: No edema. LABORATORY DATA: Today's hemoglobin and hematocrit 13 and 40.5, white count 7.3, and platelet count is below normal at 117. Today's SMA-7 is within normal limits except for BUN of 23. ASSESSMENT: 1. Status post fall. 2. Parkinsonism. 3. History of deep venous thrombosis, current venous Doppler study is negative for deep venous thrombosis. 4. Dilated aortic root. 5. Hypertension. RECOMMENDATIONS: Chest x-ray AP and lateral that was performed yesterday revealed mild cardiomegaly and pulmonary vascular congestion, unfolding of the aorta. In view of that, I will proceed with CT scan with IV contrast to further evaluate the aorta. Shilo Yanez MD
--- NOTE | 2018-06-14 18:14 | CT ---
PROCEDURE: CT Angiography Chest, Abdomen and Pelvis with and without intravenous contrast HISTORY: Aortic aneurysm COMPARISON: Comparison is made to the previous CTA of the chest dated 04/15/2017 TECHNIQUE: Contiguous axial images of the chest, abdomen and pelvis were obtained in the phase of aortic enhancement. A noncontrast enhanced CT of the chest was also obtained to evaluate for possible intramural thrombus. Coronal and sagittal reformats were generated. IV dose administered: 100 mL of Visipaque 320 intravenously. Radiation dose: Total exam DLP = 1727.11 mGy-cm. This CT exam was performed using one or more of the following dose reduction techniques: Automated exposure control, adjustment of the mA and/or kV according to patient size, and/or use of iterative reconstruction technique. FINDINGS: CT ANGIOGRAPHY OF THE CHEST WITH & WITHOUT CONTRAST: AORTA (CHEST AND ABDOMEN): The thoracic and abdominal aorta are unremarkable, without aneurysm, dissection or rupture. No intramural thrombus identified in the thoracic aorta on the non-contrast ct of the chest. The celiac axis, superior mesenteric artery, inferior mesenteric artery and the renal arteries are widely patent. The pelvic arteries are unremarkable. LUNGS: No evidence of consolidation or pneumonia. MEDIASTINUM: There is a filling defect noted in the left upper lobe pulmonary artery likely residual chronic PE. The main pulmonary artery is mildly enlarged suggestive of underlying pulmonary hypertension. Pre gayla round soft tissue density is again noted measures 2.7 centimeter in the transverse diameter. LYMPH NODES: Precarinal soft tissue measures 2.7 centimeter may represent enlarged lymph node has not significantly changed compared to the prior study. PLEURA: Unremarkable. No pneumothorax. No pleural fluid. BONES: Unremarkable. OTHER FINDINGS: None. CT ANGIOGRAPHY OF THE ABDOMEN AND PELVIS WITH CONTRAST: LIVER: Hepatic steatosis is again noted. GALLBLADDER AND BILE DUCTS: Unremarkable. PANCREAS: No evidence of acute pathology in the pancreas SPLEEN: Unremarkable. ADRENALS: Unremarkable. No mass. KIDNEYS AND URETERS: Unremarkable. No hydronephrosis. No solid mass. VASCULATURE: Unremarkable. No aortic aneurysm. Few punctate foci of atherosclerotic calcification noted. STOMACH AND BOWEL: Unremarkable. No obstruction. No gross mural thickening. Colonic diverticulosis are noted without evidence of diverticulitis. APPENDIX: No evidence of appendicitis. PERITONEUM: Mid abdomen mesenteric and peritoneal stranding noted of uncertain etiology. No evidence of significant ascites. No evidence of free air. LYMPH NODES: No evidence of significant retroperitoneal lymphadenopathy. BLADDER: Distended urinary bladder demonstrate moderate diffuse wall thickening. REPRODUCTIVE: The prostate is moderately to markedly enlarged. BONES: No acute fracture. OTHER FINDINGS: None. IMPRESSION: No evidence of aortic aneurysm or dissection. Nonobstructing left upper lobe pulmonary artery emboli noted. Mildly enlarged main pulmonary artery. IVC filter is seen in place. Mildly distended urinary bladder demonstrate moderate circumferential wall thickening. Additional findings as discussed above.
[2018-06-14 19:01] LABS: INR 1.3; PROTHROMBIN TIME 13.7 SECONDS (9.7-12.2)
--- NOTE | 2018-06-14 23:49 | PN ---
DATE: 06/14/2018 SUBJECTIVE: Today, the patient is alert and awake. Denied any chest pain or dizziness. Feeling weak, shortness of breath on exertion. PHYSICAL EXAMINATION: VITAL SIGNS: Blood pressure 131/82, pulse is 84, respirations 20, temperature 99 degrees. HEAD: Normocephalic. NECK: Supple. LUNGS: Clear. HEART: Regular rate and rhythm. Positive murmur. ABDOMEN: Soft. Positive bowel sounds. EXTREMITIES: There is no edema. NEUROLOGIC: There is a fine tremor of the upper extremities. LABORATORY DATA: Blood work done showed WBC of 7.3, hemoglobin 13, hematocrit 40.5, and platelet is 117. Chemistry showed a sodium of 138, potassium 3.9, chloride 105, bicarb is 24, BUN 23, creatinine 1.3, and glucose 110. AST 34, ALT 16, alkaline phosphatase 62. Also, the patient has a CT angio of the abdomen and pelvis and that showed there is filling defect on the left upper lobe pulmonary artery underlying pulmonary hypertension. is again noted. ASSESSMENT AND PLAN: The plan is that we are going to start the patient on heparin and Coumadin. We will discuss the case with Dr. Yanez, the caving guide. Stu Elizabeth MD
[2018-06-15 07:45] LABS: BASO % 0.5 % (0.0-2.0); EOS # 0.4 K/uL (0.0-0.7); EOS % 5.9 % (0.0-4.0); HEMOGLOBIN 13.2 g/dL (12.0-18.0); LYMPH # 0.8 K/uL (1.0-4.3); MEAN CELL VOLUME 91.7 fL (80.0-94.0); MEAN CORPUSCULAR HEMOGLOBIN 29.4 pg (27.0-31.0); MEAN CORPUSCULAR HGB CONC 32.1 g/dL (33.0-37.0); MEAN PLATELET VOLUME 9.6 fL (7.2-11.7); MONO # 0.7 K/uL (0.0-0.8); MONO % 9.8 % (0.0-10.0); NEUT # 4.8 K/uL (1.8-7.0); NEUT % 71.8 % (50.0-75.0); RBC 4.51 Mil/uL (4.40-5.90); RED CELL DISTRIBUTION WIDTH 15.9 % (11.5-14.5); WHITE BLOOD COUNT 6.7 K/uL (4.8-10.8)
[2018-06-15 07:51] LABS: INR 1.2; PROTHROMBIN TIME 13.4 SECONDS (9.7-12.2)
[2018-06-15 08:01] LABS: ALB/GLOB RATIO 1.3 (1.0-2.1); ALBUMIN 4.5 g/dL (3.5-5.0); ALT/SGPT 18 U/L (21-72); AST/SGOT 29 U/L (17-59); BLOOD UREA NITROGEN 21 mg/dL (9-20); CALCIUM 8.9 mg/dl (8.6-10.4); GFR NON-AFRICAN AMERICAN 54
[2018-06-15] MEDS: Pantoprazole 40 mg EC Tab PO SCH (09:28)
[2018-06-15] MEDS: Carbidopa/Levodopa 25/100 CR PO SCH ×3 (09:30→17:57)
[2018-06-15 17:32] VITALS: RESP 20
--- NOTE | 2018-06-15 19:05 | PN ---
DATE: 06/15/2018 SUBJECTIVE: The patient denies chest pain or abdominal pain. PHYSICAL EXAMINATION: VITAL SIGNS: Blood pressure 149/82, heart rate 68, temperature 98.8, respirations 18. HEENT: Normocephalic. CHEST: Clear. HEART: S1 and S2, regular. EXTREMITIES: 1+ pitting edema. LABORATORY DATA: Today's hemoglobin, hematocrit and white count are within normal limit. Platelet count is below normal at 112. Today's SMA-7 is within normal limit except for BUN of 21. Chest, abdomen and pelvis CT angiogram performed yesterday and revealed no evidence of aortic aneurysm or dissection. Nonobstructing left upper lobe pulmonary artery emboli noted, mildly enlarged main pulmonary artery, IVC filter in place. The description of that left upper lobe pulmonary artery filling defect is likely chronic PE. ASSESSMENT: 1. History of deep venous thrombosis and pulmonary embolism in 03/2017, status post inferior vena cava filter placement. 2. No evidence of deep venous thrombosis or acute pulmonary embolism during this admission. There is a region with chronic nonobstructive filling defect in the left upper lobe, most likely chronic deep venous thrombosis. 3. Hypertension. 4. Parkinsonism. 5. Status post fall. RECOMMENDATIONS: Continue aspirin 81 mg once a day, Crestor 10 mg once a day, Lopressor 12.5 mg twice a day. I will start Eliquis at a low dose, 2.5 mg twice a day. Shilo Yanez MD
--- NOTE | 2018-06-15 21:15 | PN ---
DATE: 06/15/2018 SUBJECTIVE: Today, the patient is examined. The patient is alert and awake and denies any chest pain or palpitation. There is shortness of breath, dizziness at times. PHYSICAL EXAMINATION: VITAL SIGNS: Blood pressure is 149/82, pulse 68, respirations 18, temperature 98.8. NECK: Supple. No JVD. LUNGS: Clear. HEART: Regular rate and rhythm. ABDOMEN: Soft and mild epigastric tenderness. Positive bowel sounds. EXTREMITIES: There is no edema. LABORATORY DATA: The patient has CT angio done, there is a filling defect noted in the left upper lobe pulmonary artery likely chronic PE, and the patient was before on Coumadin, but has stopped it. PLAN: We are going to resume the Coumadin and put the patient on heparin subcutaneously. We will continue the rest of the medication. Stu Elizabeth MD
[2018-06-16 07:42] LABS: BASO # 0.1 K/uL (0.0-0.2); BASO % 0.7 % (0.0-2.0); EOS # 0.2 K/uL (0.0-0.7); EOS % 2.9 % (0.0-4.0); HEMOGLOBIN 12.9 g/dL (12.0-18.0); LYMPH # 1.1 K/uL (1.0-4.3); LYMPH % 16.1 % (20.0-40.0); MEAN CELL VOLUME 91.2 fL (80.0-94.0); MEAN CORPUSCULAR HEMOGLOBIN 29.7 pg (27.0-31.0); MEAN CORPUSCULAR HGB CONC 32.5 g/dL (33.0-37.0); MONO # 0.7 K/uL (0.0-0.8); MONO % 10.4 % (0.0-10.0); NEUT # 4.8 K/uL (1.8-7.0); NEUT % 69.9 % (50.0-75.0); NRBC % 0.1 % (0.0-2.0); RBC 4.35 Mil/uL (4.40-5.90); RED CELL DISTRIBUTION WIDTH 15.6 % (11.5-14.5); WHITE BLOOD COUNT 6.9 K/uL (4.8-10.8)
[2018-06-16 07:52] LABS: ALB/GLOB RATIO 1.4 (1.0-2.1); ALBUMIN 4.3 g/dL (3.5-5.0); ALT/SGPT 10 U/L (21-72); AST/SGOT 34 U/L (17-59); BLOOD UREA NITROGEN 21 mg/dL (9-20); CALCIUM 8.9 mg/dl (8.6-10.4); GFR NON-AFRICAN AMERICAN 59
[2018-06-16 07:59] LABS: INR 1.4; PROTHROMBIN TIME 15.2 SECONDS (9.7-12.2)
[2018-06-16] MEDS: Pantoprazole 40 mg EC Tab PO SCH (09:33)
[2018-06-16] MEDS: Carbidopa/Levodopa 25/100 CR PO SCH ×3 (10:50→17:19)
--- NOTE | 2018-06-16 18:34 | PN ---
DATE: 06/16/2018 SUBJECTIVE: The patient denies chest pain or abdominal pain. PHYSICAL EXAMINATION: VITAL SIGNS: Blood pressure 137/81, heart rate 89, temperature 98.5, respirations 20. HEENT: Normocephalic. CHEST: Clear. HEART: S1, S2. Regular. EXTREMITIES: Trace leg edema. LABORATORY DATA: Today's hemoglobin and hematocrit 12.9 and 39.7, white count 6.9, platelet count 114,000. Today's SMA-7 is within normal limit except BUN of 21. ASSESSMENT: 1. Status post fall. 2. Parkinsonism. 3. History of deep venous thrombosis and pulmonary embolism in 03/2017, status post inferior vena cava filter placement with residual filling defect in the left upper lobe consistent with chronic residual pulmonary embolus. 4. Hypertension. RECOMMENDATIONS: Continue Colace 100 mg twice a day, Crestor 10 mg once a day, subcutaneous heparin 5000 units every 8 hours, Lopressor 12.5 mg twice a day, Sinemet 1 tablet twice a day. The patient did receive Coumadin 5 mg today. Today's INR is 1.4 and I will order Coumadin 5 mg orally today. Shilo Yanez MD
--- NOTE | 2018-06-16 19:26 | PN ---
DATE: 06/16/2018 SUBJECTIVE: The patient today is alert and awake, was complaining of constipation, but now the patient admits of having some small amount of bowel movement. Denied any chest pain or palpitation. The patient still feels weak. PHYSICAL EXAMINATION: VITAL SIGNS: Blood pressure of 137/81, pulse 89, respirations 20, temperature 98.5. HEENT: Head is normocephalic. NECK: Supple. No JVD. LUNGS: Clear. HEART: Regular rate and rhythm. ABDOMEN: Soft. Nontender. No palpable mass. EXTREMITIES: There is no edema. NEUROLOGIC: There is unsteady gait. The patient is mumbling while talking. There is a fine tremor of the upper extremities. LABORATORY DATA: The labs showed WBC 6.9, hemoglobin 12.9, hematocrit is 39.7, and platelet is 114. The chemistry showed sodium 135, potassium 4.1, chloride 101, bicarbonate is 25, BUN 21, creatinine 1.2, and the glucose 107, and the coagulation showed that the PT is 16.2, INR is 1.4, PTT 32. PLAN: So, the plan is that we are going to increase the Coumadin to 7.5, and repeat the PT/INR in the a.m. Continue current medication. Stu Elizabeth MD
[2018-06-17 06:42] LABS: PROTHROMBIN TIME 22.3 SECONDS (9.7-12.2)
[2018-06-17 07:38] VITALS: BP 135/83; PULSE 86; TEMP 98.3
[2018-06-17] MEDS: Pantoprazole 40 mg EC Tab PO SCH (09:06)
[2018-06-17] MEDS: Carbidopa/Levodopa 25/100 CR PO SCH ×2 (09:06→13:47)
[2018-06-17] MEDS ORDERED: Influenza Vaccine 60 mcg/0.5 mL SYR (4YR UP) IM ONE (14:00)
[2018-06-17] MEDS ORDERED: Pneumococcal 23-Valent Vaccine IM ONE (14:50)
--- NOTE | 2018-06-17 19:14 | PN ---
DATE: 06/17/2018 SUBJECTIVE: The patient denies any dizziness, chest pain or palpitation. PHYSICAL EXAMINATION: VITAL SIGNS: Blood pressure 135/83, heart rate 86, temperature 98.3, respirations 20. HEENT: Normocephalic. CHEST: Clear. HEART: S1 and S2, regular. EXTREMITIES: Trace leg edema. LABORATORY DATA: Today's blood sugar is 115 respectively. ASSESSMENT: 1. History of deep venous thrombosis and pulmonary embolism in 03/2015, status post inferior vena cava filter placement. 2. Status post fall. 3. Parkinsonism. 4. Hypertension. RECOMMENDATION: This case was discussed with Dr. Stu Elizabeth. The patient can be discharged on his current medications including Coumadin, Crestor, folic acid, Lopressor and Sinemet. The issue was Eliquis that the patient and for this reason, the patient will be kept on Coumadin. Shilo Yanez MD
--- NOTE | 2018-06-18 04:10 | DS ---
HOSPITAL COURSE: The patient is a 72-year-old male with history of Parkinson disease and hypertension. The patient was brought to the emergency room because the patient has new syncopal episode as well as the patient . The patient was brought to the emergency room complaining of dizziness and palpitation but denies any chest pain. The patient was claiming that he was out of medications including the Sinemet. The patient had a consult with Dr. Yanez. The patient had some tests done and a CT angio has revealed that the patient has nonobstructing left upper lobe pulmonary artery emboli and mildly enlarged main pulmonary artery and also the patient has an IVC filter seen in place. Also, the patient was put on medications including Coumadin and Sinemet and some other medication. Now, the treatment has stopped and controlled and now the patient has the Coumadin, the INR is 2. The plan is that the patient will be going home where he would continue the Coumadin at 4 mg and come to my office in 3 days to check the PT/INR, and the current medication was ordered and given by Wendy Cheatham, the nurse practitioner, who assisted me with this patient. Stu Elizabeth MD
--- NOTE | 2018-06-18 07:48 | PN ---
DATE: 06/17/2018 SUBJECTIVE: Today, the patient is alert and awake. Denied any shortness of breath. No chest pain. No palpitation. No dizziness. PHYSICAL EXAMINATION: VITAL SIGNS: The patient has a blood pressure of 135/83, pulse 86, respirations 20, and temperature 98.3. NECK: Supple. No JVD. LUNGS: Clear. HEART: Regular rate and rhythm. ABDOMEN: Soft. No tenderness. Positive bowel sounds. EXTREMITIES: There is no edema. NEUROLOGIC: There is a fine tremor of the hands and the patient is mumbling as he is speaking. LABORATORY DATA: The patient has some tests done; PT 22.3 and INR is 2. PLAN: The plan is that the patient is going to continue with Coumadin, but it will be at 4 mg and also we are going to continue the current medication. The patient will be discharged today. Case was discussed with Dr. Yanez and also Wendy Cheatham, the nurse practitioner. Stu Elizabeth MD
[2018-06-19 13:17] VITALS: O2SAT 94
--- NOTE | 2018-06-20 12:06 | PQF ---
PROVIDER RESPONSE TEXT: Etiology unknown REVIEWER QUERY TEXT: Acuity Specificity __SYNCOPE is documented in the Medical Record. Please specify the acuity of this condit ion with terms such as: -- --UNKNOWN -- -- Other (please specify in the medical record) The patient's Clinical Indicators include: SYNCOPE HISTORY OF PARKINSONS ,DEMENTIA HTN,EMBOLYSM, PLEASE CLARIFY AND DOCUMENT THE SYNCOPE ETIOLOGY IF KNOWN. Query created by: Cora Roberts on 06/18/2018 1:59 PM Electronically signed by: Stu Elizabeht MD 06/20/2018 12:04 PM
== END 2018-06-17 14:02 | disposition home or self-care (01) | DRG 312 ==
LOC: C.ER 12:05 → C.9E 15:40 → C.6T 15:57 → OBSVTOIN 06-14 18:49
PROVIDERS: ADMIT Specialist; ATTEND Specialist
DX: R55 Syncope and collapse (principal); I26.99 Other pulmonary embolism without acute cor pulmonale; E78.5 Hyperlipidemia, unspecified; F03.90 Unspecified dementia, unspecified severity, without behavioral disturbance, psychotic disturbance, mood disturbance, and anxiety; G20 Parkinson's disease; I10 Essential (primary) hypertension; I48.91 Unspecified atrial fibrillation; K59.00 Constipation, unspecified; K21.9 Gastro-esophageal reflux disease without esophagitis; Z86.718 Personal history of other venous thrombosis and embolism; Z91.81 History of falling; N28.9 Disorder of kidney and ureter, unspecified; I65.29 Occlusion and stenosis of unspecified carotid artery; E78.00 Pure hypercholesterolemia, unspecified; I77.810 Thoracic aortic ectasia

== ENCOUNTER 2018-06-23 15:15 | Inpatient (IN) | payer OTHER ==
[2018-06-23 16:21] LABS: BASO # 0.1 K/uL (0.0-0.2); BASO % 1.4 % (0.0-2.0); EOS # 0.1 K/uL (0.0-0.7); EOS % 2.1 % (0.0-4.0); HEMOGLOBIN 11.5 g/dL (12.0-18.0); LYMPH # 0.6 K/uL (1.0-4.3); MEAN CELL VOLUME 90.3 fL (80.0-94.0); MEAN CORPUSCULAR HGB CONC 32.1 g/dL (33.0-37.0); MEAN PLATELET VOLUME 8.5 fL (7.2-11.7); MONO # 0.7 K/uL (0.0-0.8); MONO % 11.3 % (0.0-10.0); NEUT # 4.5 K/uL (1.8-7.0); NEUT % 75.2 % (50.0-75.0); RBC 3.96 Mil/uL (4.40-5.90); RED CELL DISTRIBUTION WIDTH 15.5 % (11.5-14.5)
--- NOTE | 2018-06-23 16:32 | C.PDOC ---
History Of Present Illness Patient is a 72 year old male brana, with PMHx of advanced Parkinson's disease and dementia, who is brought into the ED for gait instability and chronic right leg pain. Patient was previously admitted on Jun 11 for a non-occluding left upper lobe PE, after which he was put on Coumadin. Patient had multiple evaluations for gait instability, but family has declined [facility]p admission. Time Seen by Provider: 06/23/18 15:46 Chief Complaint (Nursing): Lower Extremity Problem/Injury History Per: Patient, EMS History/Exam Limitations: language barrier (Creole ) Current Symptoms Are (Timing): Still Present Recent travel outside of the [place]: No Additional History Per: Patient, EMS Past Medical History Reviewed: Historical Data, Nursing Documentation, Vital Signs Vital Signs: Last Vital Signs Temp 98.5 F 06/23/18 15:24 Pulse 105 H 06/23/18 15:24 Resp 20 06/23/18 15:24 BP 147/79 06/23/18 15:24 Pulse Ox 98 06/23/18 15:24 - Medical History PMH: Arthritis, HTN, Hypercholesterolemia, Parkinson's Disease, Peripheral Edema, Sexually Transmitted Disease () Denies: Anxiety, Chronic Kidney Disease Surgical History: No Surg Hx - [facility] Procedures INSERTION OF INTRALUM DEV INTO INF VENA CAVA, PERC APPROACH (04/14/17) Family History: States: Unknown Family Hx (no pertinent family history) - Social History Hx Tobacco Use: No Hx Alcohol Use: No Hx Substance Use: No - Immunization History Hx Tetanus Toxoid Vaccination: No Hx Influenza Vaccination: No Hx Pneumococcal Vaccination: No Review Of Systems Musculoskeletal: Positive for: Leg Pain (chronic right leg ) Neurological: Positive for: Other (gait instablity ) Physical Exam - Physical Exam Appears: Non-toxic, Other (demented, confused, speaks Creole (interpreted)) Skin: Normal Color, Warm, Dry Head: Atraumatic, Normacephalic Eye(s): bilateral: Normal Inspection Oral Mucosa: Moist Neck: Normal ROM, Supple Chest: Symmetrical, No Deformity Cardiovascular: Rhythm Regular Respiratory: Normal Breath Sounds Gastrointestinal/Abdominal: Soft Extremity: Normal ROM, Pedal Edema (lower extremities 1/4 pitting edema, right knee more edematous without erythema or pain ) ED Course And Treatment - Laboratory Results Result Diagrams: 06/23/18 16:17 06/23/18 16:17 Lab Interpretation: Abnormal (INR 9.1 H) ECG: Interpreted By Me ECG Rhythm: Sinus Rhythm ECG Interpretation: Normal Rate From EC O2 Sat by Pulse Oximetry: 98 (on RA) Pulse Ox Interpretation: Normal - Radiology CXR: Interpreted by Me CXR Interpretation: Yes: No Acute Disease - Other Rad CXR X-Ray: Viewed By Me, Read By Radiologist Interpretation: IMPRESSION: No active pulmonary disease. Reevaluation Time: 17:04 Reassessment Condition: Unchanged Medical Decision Making Medical Decision Making: Plan: EKG Labs CXR 1600. Discussed with Dr. Elizabeth. Agreed to admit. INR 9.1 tx per per guidelines INR 5.9 give Vit K 2.5 SC and follow INR ? small hemarthrosis R knee considering elevated INR will NOT tap knee consider ortho f/u. Dispo: multiple recent adm poor med compliance and falls risk consider NH placement Disposition Doctor Will See Patient In The: Hospital Counseled Patient/Family Regarding: Studies Performed, Diagnosis - Disposition Disposition: HOSPITALIZED Disposition Time: 17:05 Condition: GOOD - Clinical Impression Clinical Impression: Dementia, Coumadin toxicity, Gait apraxia of elderly - Scribe Statement The provider has reviewed the documentation as recorded by the Rakeshibosman Dillard All medical record entries made by the Rakeshibosman were at my direction and person ally dictated by me. I have reviewed the chart and agree that the record accurately reflects my personal performance of the history, physical exam, medical decision making, and the department course for this patient. I have also personally directed, reviewed, and agree with the discharge instructions and disposition.
[2018-06-23 16:37] LABS: INR 9.1; PROTHROMBIN TIME 99.6 SECONDS (9.7-12.2)
[2018-06-23 16:47] LABS: B-TYPE NATRIURETIC PEPTIDE 355 pg/mL (0-900)
[2018-06-23] MEDS ORDERED: Phytonadione 10 mg/ml Inj (Adult) SC STA (16:47)
--- NOTE | 2018-06-23 16:48 | C.PDOC ---
Time Seen by Provider: 06/23/18 15:46 Chief Complaint (Nursing): Lower Extremity Problem/Injury Past Medical History Vital Signs: Last Vital Signs Temp 98.5 F 06/23/18 15:24 Pulse 105 H 06/23/18 15:24 Resp 20 06/23/18 15:24 BP 147/79 06/23/18 15:24 Pulse Ox 98 06/23/18 15:24 - Medical History PMH: Arthritis, HTN, Hypercholesterolemia, Parkinson's Disease, Peripheral Edema, Sexually Transmitted Disease () Denies: Anxiety, Chronic Kidney Disease - [facility] Procedures INSERTION OF INTRALUM DEV INTO INF VENA CAVA, PERC APPROACH (04/14/17) Family History: States: Unknown Family Hx (no pertinent family history) - Social History Hx Tobacco Use: No Hx Alcohol Use: No Hx Substance Use: No - Immunization History Hx Tetanus Toxoid Vaccination: No Hx Influenza Vaccination: No Hx Pneumococcal Vaccination: No ED Course And Treatment - Laboratory Results Result Diagrams: 06/23/18 16:17 06/23/18 16:17 O2 Sat by Pulse Oximetry: 98 Medical Decision Making Medical Decision Making: INR 9.1 tx per per guidelines INR 5.9 give Vit K 2.5 SC and follow INR Disposition - Disposition Forms: [email or web address] (Uzbek)
[2018-06-23 16:51] LABS: ALB/GLOB RATIO 1.2 (1.0-2.1); ALBUMIN 4.2 g/dL (3.5-5.0); ALT/SGPT 19 U/L (21-72); AST/SGOT 56 U/L (17-59); BLOOD UREA NITROGEN 32 mg/dL (9-20); CALCIUM 9.1 mg/dl (8.6-10.4); GFR NON-AFRICAN AMERICAN 46
--- NOTE | 2018-06-23 16:57 | RAD ---
Date of service: 06/23/2018 PROCEDURE: CHEST RADIOGRAPH, 1 VIEW HISTORY: SOB COMPARISON: 05/13/2017. FINDINGS: LUNGS: The lungs are well inflated and clear. PLEURA: No pneumothorax or pleural effusion. CARDIOVASCULAR: The heart is normal in size. No aortic atherosclerotic calcifications present. OSSEOUS STRUCTURES: Within normal limits for the patient's age. VISUALIZED UPPER ABDOMEN: Normal. OTHER FINDINGS: None. IMPRESSION: No active pulmonary disease.
[2018-06-23] MEDS ORDERED: Phytonadione 10 mg/ml Inj (Adult) ONE (17:10)
[2018-06-23 20:56] VITALS: RESP 20
[2018-06-24 07:19] LABS: HEMOGLOBIN 11.8 g/dL (12.0-18.0); MEAN CELL VOLUME 90.3 fL (80.0-94.0); MEAN CORPUSCULAR HEMOGLOBIN 29.5 pg (27.0-31.0); MEAN CORPUSCULAR HGB CONC 32.7 g/dL (33.0-37.0); MEAN PLATELET VOLUME 8.5 fL (7.2-11.7); RBC 4.01 Mil/uL (4.40-5.90); RED CELL DISTRIBUTION WIDTH 15.5 % (11.5-14.5); WHITE BLOOD COUNT 5.6 K/uL (4.8-10.8)
[2018-06-24 08:03] LABS: INR 7.7; PROTHROMBIN TIME 84.7 SECONDS (9.7-12.2)
[2018-06-24 08:08] LABS: ALB/GLOB RATIO 1.2 (1.0-2.1); ALBUMIN 3.9 g/dL (3.5-5.0); ALT/SGPT 26 U/L (21-72); AST/SGOT 47 U/L (17-59); BLOOD UREA NITROGEN 22 mg/dL (9-20); GFR NON-AFRICAN AMERICAN 54
[2018-06-24] MEDS: Carbidopa/Levodopa 25/100 CR PO SCH ×3 (10:30→17:15)
[2018-06-24] MEDS: Pantoprazole 40 mg EC Tab PO SCH (10:31)
--- NOTE | 2018-06-24 11:06 | CT ---
Date of service: 06/24/2018 PROCEDURE: CT HEAD WITHOUT CONTRAST. HISTORY: Rule out hemorrhage COMPARISON: Comparison made with prior CT scan of the brain 06/11/2018. TECHNIQUE: Axial computed tomography images were obtained through the head/brain without intravenous contrast. Radiation dose: Total exam DLP = 1323.89 mGy-cm. This CT exam was performed using one or more of the following dose reduction techniques: Automated exposure control, adjustment of the mA and/or kV according to patient size, and/or use of iterative reconstruction technique. FINDINGS: HEMORRHAGE: No acute parenchymal, subarachnoid or extra-axial hemorrhage. BRAIN: Minor chronic periventricular white matter ischemic changes seen extending peripherally into the deep white matter both cerebral hemispheres. Moderate central volume loss evidenced by disproportion enlargement of the ventricles as compared the sulci. Lesli should be. Mild vascular calcifications both carotid siphons VENTRICLES: No obstructive hydrocephalus CALVARIUM: The calvarium appears intact. PARANASAL SINUSES: Unremarkable as visualized. No significant inflammatory changes. MASTOID AIR CELLS: Unremarkable as visualized. No inflammatory changes. OTHER FINDINGS: None. IMPRESSION: No acute intracranial hemorrhage. Mild chronic periventricular white matter ischemic changes. Moderate central volume loss.
--- NOTE | 2018-06-24 12:13 | CARD ---
APPROVED REPORT Date of service: 06/23/2018 EKG Measurement Heart [id number] <Conclusion> Normal sinus rhythm Normal ECG
--- NOTE | 2018-06-24 15:10 | CT ---
Date of service: 06/24/2018 PROCEDURE: CT of the right thigh HISTORY: right thigh pain and swelling COMPARISON: None available. TECHNIQUE: Contiguous axial images of the right hip were obtained. Coronal and sagittal reformats were generated. Radiation dose: Total exam DLP = 948.82 mGy-cm. This CT exam was performed using one or more of the following dose reduction techniques: Automated exposure control, adjustment of the mA and/or kV according to patient size, and/or use of iterative reconstruction technique. 3D surface volume rendering imaging also obtained FINDINGS: BONES: No fracture or focal destructive or lytic appearing lesion. Anterior patellar cortical hyperostoses-and blending quadriceps and patellar tendon enthesophytes. Anterior tibial tuberosity benign-appearing cortical hyperostoses. Right ischial tuberosity cortical benign-appearing osseous hyperostoses JOINT: No dislocation. Mild degenerative changes in the right hip and right knee also noted. Lateral patellar tilt incidentally noted SOFT TISSUES: Circumferential subcutaneous reticulated edema greater along the lateral femoral condylar aspect.. Grossly the muscle bundles appear isodense with other muscle bundles. If more sensitive evaluation here is needed, consider MRI of the right thigh. IMPRESSION: No fracture or lytic lesion. Mild degenerative changes of the right hip and right knee noted. Subcutaneous reticulated edema. Greater along the lateral aspect of the lateral femoral condyle. Grossly the muscle bundles appear intact. Other findings as above.
--- NOTE | 2018-06-24 16:39 | CP.PCM.CON ---
History of Present Illness - History of Present Illness History of Present Illness: 72 year old male with a history of Parkinsons disease, dementia, LLE DVT with IVC filter 2017, recent PE on coumadin, presenting with gait instability, found to have coumadin toxicity and coagulopathy. I am unable to obtain a history from the patient. Review of his medical records shows an INR of 9.1 without evidence of significant bloodloss. He is s/p vit K and his coumadin has been held. Past medical, surgical, family, social history cannot be obtained from the patient. Allergies: Per documentation NKA Review of systems cannot be obtained. Past Patient History - Past Medical History & Family History Past Medical History?: Yes - Past Social History Smoking Status: Never Smoked - CARDIAC Hx Hypercholesterolemia: Yes Hx Hypertension: Yes Hx Peripheral Edema: Yes - PULMONARY Hx Respiratory Disorders: Yes Hx Tuberculosis: Yes (1965) - NEUROLOGICAL Hx Parkinson's Disease: Yes - HEENT Hx HEENT Problems: No - RENAL Hx Chronic Kidney Disease: No - ENDOCRINE/METABOLIC Hx Endocrine Disorders: No - HEMATOLOGICAL/ONCOLOGICAL Hx Blood Disorders: No - INTEGUMENTARY Hx Dermatological Problems: No - MUSCULOSKELETAL/RHEUMATOLOGICAL Hx Arthritis: Yes - GASTROINTESTINAL Hx Gastrointestinal Disorders: Yes Hx Constipation: Yes Other/Comment: Claimed he takes a small white pill and he moves his bowels - GENITOURINARY/GYNECOLOGICAL Hx Sexually Transmitted Disorders: Yes () - PSYCHIATRIC Hx Anxiety: No Hx Substance Use: No - SURGICAL HISTORY Hx Surgeries: No - ANESTHESIA Hx Anesthesia: No Hx Anesthesia Reactions: No Hx Malignant Hyperthermia: No Meds Allergies/Adverse Reactions: Allergies Allergy/AdvReac Type Severity Reaction Status Date / Time No Known Allergies Allergy Verified 06/23/18 15:32 - Medications Medications: Current Medications Acetaminophen (Tylenol 325mg Tab) 650 mg PO Q6 PRN PRN Reason: Pain, moderate (4-7) Carbidopa/Levodopa (Sinemet Cr) 1 tab PO TID [facility] Last Admin: 06/24/18 14:45 Dose: 1 tab Docusate Sodium (Colace) 100 mg PO BID [facility] Last Admin: 06/24/18 10:31 Dose: 100 mg Folic Acid (Folic Acid) 1 mg PO DAILY [facility] Last Admin: 06/24/18 10:31 Dose: 1 mg Influenza Virus Vaccine (Flucelvax Quad [id number] Syr) 60 mcg IM .ONCE ONE Stop: 06/27/18 10:01 Metoprolol Tartrate (Lopressor) 12.5 mg PO BID [facility] Last Admin: 06/24/18 10:31 Dose: 12.5 mg Pantoprazole Sodium (Protonix Ec Tab) 40 mg PO DAILY [facility] Last Admin: 06/24/18 10:31 Dose: 40 mg Pramipexole Dihydrochloride (Mirapex) 0.25 mg PO TID [facility] Last Admin: 06/24/18 14:45 Dose: 0.25 mg Rosuvastatin Calcium (Crestor) 10 mg PO HS [facility] Last Admin: 06/23/18 22:22 Dose: 10 mg Physical Exam - Head Exam Head Exam: ATRAUMATIC - Eye Exam Eye Exam: Normal appearance - ENT Exam ENT Exam: Mucous Membranes Dry - Respiratory Exam Respiratory Exam: NORMAL BREATHING PATTERN - Cardiovascular Exam Cardiovascular Exam: +S1, +S2 - GI/Abdominal Exam GI & Abdominal Exam: Normal Bowel Sounds - Extremities Exam Extremities exam: Positive for: pedal edema - Neurological Exam Neurological exam: Altered - Psychiatric Exam Psychiatric exam: Flat Affect - Skin Skin Exam: Warm Results - Vital Signs Recent Vital Signs: Last Vital Signs Temp 98.1 F 06/24/18 15:59 Pulse 78 06/24/18 15:59 Resp 20 06/24/18 15:59 BP 110/62 06/24/18 15:59 Pulse Ox 95 06/24/18 15:59 - Labs Result Diagrams: 06/24/18 07:11 06/24/18 07:11 Labs: Laboratory Results - last 24 hr 06/23/18 06/24/18 06/24/18 16:17 07:11 07:11 WBC 5.6 RBC 4.01 L Hgb 11.8 L Hct 36.2 MCV 90.3 MCH 29.5 MCHC 32.7 L RDW 15.5 H Plt Count 246 MPV 8.5 PT 84.7 H D INR 7.7 H* D APTT 45 H Sodium 135 Potassium 5.4 H Chloride 101 Carbon Dioxide 28 Anion Gap 12 BUN 32 H Creatinine 1.5 Est GFR ( Amer) 55 Est GFR (Non-Af Amer) 46 Random Glucose 160 H D Calcium 9.1 Total Bilirubin 0.8 AST 56 ALT 19 L D Alkaline Phosphatase 49 Troponin I < 0.0120 NT-Pro-B Natriuret Pep 355 Total Protein 7.8 Albumin 4.2 Globulin 3.6 Albumin/Globulin Ratio 1.2 06/24/18 07:11 WBC RBC Hgb Hct MCV MCH MCHC RDW Plt Count MPV PT INR APTT Sodium 134 Potassium 4.8 Chloride 100 Carbon Dioxide 27 Anion Gap 12 BUN 22 H Creatinine 1.3 Est GFR ( Amer) > 60 Est GFR (Non-Af Amer) 54 Random Glucose 111 H D Calcium 9.0 Total Bilirubin 0.6 AST 47 ALT 26 Alkaline Phosphatase 61 Troponin I NT-Pro-B Natriuret Pep Total Protein 7.2 Albumin 3.9 Globulin 3.4 Albumin/Globulin Ratio 1.2 Assessment & Plan (1) Coumadin toxicity Assessment and Plan: coumadin held and s/p vit k - no evidence of bleeding INR improving Status: Acute (2) Pulmonary embolism Assessment and Plan: has IVC filter from prior anticoagulation held due to coumadin toxicity consider restarting anticoagulation at lower dose once INR between 2-3 Status: Acute (3) Coagulopathy Assessment and Plan: secondary to anticoagulation Status: Acute (4) Anemia Assessment and Plan: retic count, b12, folate, ferritin to further characterize Thank you for this interesting consult. Status: Acute
--- NOTE | 2018-06-25 06:09 | CON ---
DATE: 06/24/2018 REASON FOR CONSULTATION: Coumadin toxicity. HISTORY OF PRESENT ILLNESS: The patient is a 72-year-old male from [facility] who has a history of history of dementia who was diagnosed with DVT and pulmonary embolism slightly about a year ago and requires ID consultation. The patient was recently discharged after he was admitted to the floor. The CT of the spine reveals a swelling left upper lobe consistent with an old chronic clot. The patient was discharged on Coumadin therapy. He was admitted with Coumadin toxicity and the initial INR was 9.1 yesterday. SOCIAL HISTORY: Nonsmoker, nondrinker. MEDICATIONS: Colace 100 mg b.i.d., Crestor 10 mg once a day, folic acid 1 mg once a day, Lopressor 12.5 mg once a day, Sinemet 1 tablet t.i.d. The patient did receive vitamin K injection totalling 12.5 mg subcutaneously. REVIEW OF SYSTEMS: No fever or chills. No hematemesis or melena. No hematuria. PHYSICAL EXAMINATION: GENERAL: The patient is an elderly male who does not appear to be in acute distress. VITAL SIGNS: Blood pressure 138/75, heart rate 89, temperature 99.5, and respirations 20. HEENT: Pale conjunctivae. CHEST: Clear. HEART: S1 and S2. Regular. EXTREMITIES: No edema. LABORATORY DATA: Hemoglobin and hematocrit 11.8 and 36.2. White count and platelet count are within normal limits. SMA-7 within normal limits except for glucose 111 and BUN of 22. Troponin is within normal limit. Today's INR 7.7. EKG revealed normal sinus rhythm at a rate of 99. Head CT scan without contrast, no acute intracranial finding, mild chronic periventricular white matter ischemic changes. Moderate volume loss. Lower extremity CT scan; no fracture or lytic lesions, mild degenerative changes of the right hip and right knee noted. ASSESSMENT: 1. Digoxin toxicity. 2. History of deep venous thrombosis and pulmonary embolism status post inferior vena cava filter placement. 3. Parkinsonism. RECOMMENDATIONS: Continue current Crestor 10 mg once a day, Lopressor 12.5 mg twice a day, Sinemet 1 tablet t.i.d. and Protonix 40 mg once a day. Follow up daily INR. No future Coumadin will be justified and Eliquis at 2.5 mg twice a day should be considered. Shilo Yanez MD [facility] # [id number]
[2018-06-25 06:52] LABS: BASO # 0.1 K/uL (0.0-0.2); EOS # 0.2 K/uL (0.0-0.7); EOS % 2.9 % (0.0-4.0); HEMOGLOBIN 12.3 g/dL (12.0-18.0); LYMPH # 0.9 K/uL (1.0-4.3); LYMPH % 14.1 % (20.0-40.0); MEAN CELL VOLUME 90.2 fL (80.0-94.0); MEAN CORPUSCULAR HEMOGLOBIN 29.3 pg (27.0-31.0); MEAN CORPUSCULAR HGB CONC 32.5 g/dL (33.0-37.0); MEAN PLATELET VOLUME 8.8 fL (7.2-11.7); MONO # 0.7 K/uL (0.0-0.8); MONO % 10.2 % (0.0-10.0); NEUT # 4.8 K/uL (1.8-7.0); NEUT % 71.8 % (50.0-75.0); RBC 4.2 Mil/uL (4.40-5.90); RED CELL DISTRIBUTION WIDTH 15.2 % (11.5-14.5); WHITE BLOOD COUNT 6.6 K/uL (4.8-10.8)
--- NOTE | 2018-06-25 06:58 | HP ---
HISTORY OF PRESENT ILLNESS: The patient is a 72-year-old male with history of Parkinson disease, hypertension, pulmonary embolism, peripheral edema, hyperlipidemia. This patient was reported to the emergency room for gait instability and chronic right leg pain. The patient was previously admitted and was found to have a non-occluding left upper lobe pulmonary embolism, and also the patient has history of CHF and atrial fibrillation, the patient was on Coumadin. PAST MEDICAL HISTORY: As I mentioned above. SOCIAL HISTORY: The patient is living with his family, brother and sister. MEDICATIONS: As I mentioned on Coumadin, supposedly to be at 4 mg but questionable if the patient was taking the medication as ordered. FAMILY HISTORY: No inherited disease. REVIEW OF SYSTEMS: RESPIRATORY: The patient denies any shortness of breath. CARDIOVASCULAR: The patient admits having some palpitation at times. No chest pain. GASTROINTESTINAL: No nausea or vomiting. No diarrhea. No melena. EXTREMITIES: There is a swelling of the right thigh which appeared to be new. The patient, in fact, was evaluated of the swelling, and we have ordered a CT of the hip that showed there was no fracture or lytic lesion. There was mild degenerative changes of the right hip and right knee noted, and there is synchronous reticulated edema along the lateral aspect of the lateral femoral condyle, and mostly the muscle bundles appear intact. LABORATORY DATA: Other tests, the patient's blood test has shown that hemoglobin is 11.5, hematocrit 35.8, WBC 6, and platelet 218. Chemistry showed that the sodium is 135, potassium 5.4 and now it is 4.3, and chloride 101, bicarb is 28, BUN 32, creatinine 1.5, glucose 160, proBNP 365, troponin is 0.0120. Blood coagulation showed that the PT was 9.1 and PTT 44. The patient also had a CAT scan of the head which shows no acute intracranial hemorrhage, mild chronic periventricular white matter ischemic changes. Amylase . So the patient was admitted with diagnoses of Coumadin toxicity and Parkinson disease, hypertension, history of nonocclusive pulmonary embolism, arthritis, and also the right hip edema. The patient will have a consult with Dr. Santa, the inside sales account executive and also consult with Dr. Yanez since the patient was found to be tachycardiac and has history of pulmonary embolism. Stu Elizabeth MD [facility] # [id number]
[2018-06-25 07:12] LABS: PROTHROMBIN TIME 36.1 SECONDS (9.7-12.2)
[2018-06-25 07:16] LABS: INR 3.3
[2018-06-25 07:32] LABS: ALB/GLOB RATIO 1.2 (1.0-2.1); ALT/SGPT 28 U/L (21-72); AST/SGOT 47 U/L (17-59); BLOOD UREA NITROGEN 17 mg/dL (9-20); CALCIUM 8.4 mg/dl (8.6-10.4); GFR NON-AFRICAN AMERICAN 54
[2018-06-25] MEDS: Carbidopa/Levodopa 25/100 CR PO SCH ×3 (09:51→17:25)
[2018-06-25] MEDS: Pantoprazole 40 mg EC Tab PO SCH (09:52)
--- NOTE | 2018-06-25 22:25 | PN ---
DATE: 06/25/2018 FOLLOWUP SUBJECTIVE: The patient denies chest pain or abdominal pain. PHYSICAL EXAMINATION: VITAL SIGNS: Blood pressure 106/64, heart rate 87, temperature 99.4, respirations 20. HEENT: Normocephalic. CHEST: Clear. HEART: S1 and S2, regular. EXTREMITIES: No edema. LABORATORY DATA: Today's SMA-7 is within normal limits. Calcium is within normal of 8.4, phosphorus within normal of 2.2, magnesium is within normal limits of 2. Today's hemoglobin, hematocrit, white count, and platelet count are within normal limits. Today's INR is 3.3. ASSESSMENT: 1. Status post Coumadin toxicity. 2. Parkinsonism. 3. History of deep venous thrombosis and pulmonary embolism, status post inferior vena cava filter placement. RECOMMENDATIONS: Continue Crestor 10 mg once a day, folic acid 1 mg once a day, Lopressor 25 mg once a day, Sinemet one tablet t.i.d. Shilo Yanez MD
--- NOTE | 2018-06-26 00:16 | PN ---
DATE: 06/25/2018 SUBJECTIVE: Today, the patient is alert and awake. Denied any pain to the right hip now. Has no shortness of breath. No chest pain. PHYSICAL EXAMINATION: VITAL SIGNS: The patient has blood pressure of 106/65, pulse 87, respirations 20, temperature 99.4. HEENT: Head is normocephalic, atraumatic. NECK: Supple. LUNGS: Clear. HEART: Regular rate and rhythm. ABDOMEN: Soft. Mildly obese. EXTREMITIES: There is swelling of the right hip in comparison to the left, and no tenderness noted and no redness. Lower extremities, there is no edema of the ankle. LABORATORY DATA: The patient has tests done today, show that the WBC is 6.6, hemoglobin 12.3, hematocrit 37.8, and platelets 281. Chemistry showed a sodium of 135, potassium 4.6, chloride 99, bicarb 28, BUN 17, creatinine 1.3, and glucose is 110. ASSESSMENT AND PLAN: The plan is that we are going to order a physical therapy, and also we are going to continue to monitor the PT/INR which is today INR of 3.3 and PT of 36.1. The case was reviewed and discussed with Wendy Cheatham, the nurse practitioner. Stu Elizabeth MD
[2018-06-26 08:41] LABS: INR 2.2; PROTHROMBIN TIME 24.5 SECONDS (9.7-12.2)
[2018-06-26 08:45] LABS: BASO # 0.1 K/uL (0.0-0.2); BASO % 0.7 % (0.0-2.0); EOS # 0.2 K/uL (0.0-0.7); EOS % 2.8 % (0.0-4.0); HEMOGLOBIN 12.1 g/dL (12.0-18.0); LYMPH % 12.1 % (20.0-40.0); MEAN CELL VOLUME 90.1 fL (80.0-94.0); MEAN CORPUSCULAR HEMOGLOBIN 29.2 pg (27.0-31.0); MEAN CORPUSCULAR HGB CONC 32.4 g/dL (33.0-37.0); MEAN PLATELET VOLUME 8.8 fL (7.2-11.7); MONO # 0.6 K/uL (0.0-0.8); MONO % 7.1 % (0.0-10.0); NEUT # 6.2 K/uL (1.8-7.0); NEUT % 77.3 % (50.0-75.0); RBC 4.14 Mil/uL (4.40-5.90); RED CELL DISTRIBUTION WIDTH 15.5 % (11.5-14.5)
[2018-06-26] MEDS: Carbidopa/Levodopa 25/100 CR PO SCH ×3 (09:43→17:54)
[2018-06-26] MEDS: Pantoprazole 40 mg EC Tab PO SCH (09:44)
--- NOTE | 2018-06-26 15:13 | PN ---
DATE: 06/26/2018 SUBJECTIVE: The patient denies any abdominal pain or chest pain. PHYSICAL EXAMINATION: VITAL SIGNS: Blood pressure 103/74, heart rate 92, temperature 97.9, respiration 20. HEENT: Normocephalic. CHEST: Clear. HEART: S1 and S2, regular. ABDOMEN: Soft. EXTREMITIES: No edema. ASSESSMENT: 1. Status post Coumadin toxicity. 2. History of deep venous thrombosis and bilateral pulmonary embolism, slightly more than a year ago. 3. Parkinsonism. RECOMMENDATIONS: The case was discussed with the medical team. The patient can be started on some Plavix instead of Coumadin, the patient's insurance does not qualify him for oral anticoagulant agents other than Coumadin. Continue Crestor 10 mg once a day, Neurontin 300 mg once a day, Sinemet one tablet three times daily. Shilo Yanez MD
--- NOTE | 2018-06-27 00:23 | PN ---
DATE: 06/26/2018 SUBJECTIVE: Today, the patient is seen and evaluated. The patient is complaining of anorexia. Denies any shortness of breath. No chest pain. PHYSICAL EXAMINATION: VITAL SIGNS: The patient has blood pressure of 103/74, pulse 92, respirations 20, temperature 99.9. NECK: Supple. LUNGS: Clear. HEART: Regular rate and rhythm. ABDOMEN: Soft, mild tenderness in the epigastric area, positive bowel sounds. EXTREMITIES: There is some swelling in the right hip, but decreasing. No tenderness in this area. NEUROLOGIC: The patient is alert and awake, but still having some fine tremor at times in the upper extremity. The patient is skipping a word sometime, which is all. LABORATORY DATA: The patient has some labs done. WBC 8, hemoglobin 12.1, hematocrit 37.3, and platelet is 337. Chemistry showed sodium 135, potassium 4.6, chloride 99, bicarb is 28, BUN 17, creatinine 1.3, and glucose is 110. Coag showed PT 24.5, INR 2.2. ASSESSMENT AND PLAN: We are going continue the physical therapy. Continue to monitor the PT/INR. The plan will be to send the patient to subacute rehab in the morning. The case was discussed and reviewed with Wendy Cheatham, the nurse practitioner. Sut Elizabeth MD
--- NOTE | 2018-06-27 01:40 | CP.PCM.PN ---
Subjective - Date & Time of Evaluation Date of Evaluation: 06/25/18 Time of Evaluation: 17:00 - Subjective Subjective: Appears comfortable Objective - Vital Signs/Intake and Output Vital Signs (last 24 hours): Temp Pulse Resp BP Pulse Ox 98.9 F 90 20 109/71 98 06/27/18 00:16 06/27/18 00:16 06/27/18 00:16 06/27/18 00:16 06/27/18 00:16 Intake and Output: 06/26/18 06/27/18 18:59 06:59 Intake Total 300 Output Total 500 Balance -200 - Medications Medications: Current Medications Acetaminophen (Tylenol 325mg Tab) 650 mg PO Q6 PRN PRN Reason: Pain, moderate (4-7) Last Admin: 06/25/18 10:02 Dose: 650 mg Carbidopa/Levodopa (Sinemet Cr) 1 tab PO TID [facility] Last Admin: 06/26/18 17:54 Dose: 1 tab Cyproheptadine HCl (Periactin) 4 mg PO [facility] Last Admin: 06/26/18 21:43 Dose: 4 mg Docusate Sodium (Colace) 100 mg PO BID [facility] Last Admin: 06/26/18 17:55 Dose: 100 mg Folic Acid (Folic Acid) 1 mg PO DAILY [facility] Last Admin: 06/26/18 09:44 Dose: 1 mg Gabapentin (Neurontin) 300 mg PO BID [facility] Last Admin: 06/26/18 17:55 Dose: 300 mg Influenza Virus Vaccine (Flucelvax Quad [id number] Syr) 60 mcg IM .ONCE ONE Stop: 06/27/18 10:01 Metoprolol Tartrate (Lopressor) 12.5 mg PO BID [facility] Last Admin: 06/26/18 17:55 Dose: 12.5 mg Pantoprazole Sodium (Protonix Ec Tab) 40 mg PO DAILY [facility] Last Admin: 06/26/18 09:44 Dose: 40 mg Pramipexole Dihydrochloride (Mirapex) 0.25 mg PO TID [facility] Last Admin: 06/26/18 17:55 Dose: 0.25 mg Rosuvastatin Calcium (Crestor) 10 mg PO [facility] Last Admin: 06/26/18 21:43 Dose: 10 mg - Labs Labs: 06/26/18 08:29 06/25/18 06:46 PT 24.5 SECONDS (9.7-12.2) H D 06/26/18 08:29 INR 2.2 D 06/26/18 08:29 APTT 45 SECONDS (21-34) H 06/24/18 07:11 - Head Exam Head Exam: ATRAUMATIC - Eye Exam Eye Exam: Normal appearance - ENT Exam ENT Exam: Mucous Membranes Dry - Respiratory Exam Respiratory Exam: NORMAL BREATHING PATTERN - Cardiovascular Exam Cardiovascular Exam: +S1, +S2 - GI/Abdominal Exam GI & Abdominal Exam: Normal Bowel Sounds Assessment and Plan (1) Coumadin toxicity Assessment & Plan: resolved Status: Acute (2) Pulmonary embolism Assessment & Plan: has IVC filter from prior anticoagulation held due to coumadin toxicity consider restarting anticoagulation at lower dose once INR between 2-3 Status: Acute (3) Coagulopathy Assessment & Plan: secondary to anticoagulation Status: Acute (4) Anemia Assessment & Plan: chronic disease Status: Acute
--- NOTE | 2018-06-27 01:45 | CP.PCM.PN ---
Subjective - Date & Time of Evaluation Date of Evaluation: 06/26/18 Time of Evaluation: 12:00 - Subjective Subjective: Appears comfortable Objective - Vital Signs/Intake and Output Vital Signs (last 24 hours): Temp Pulse Resp BP Pulse Ox 98.9 F 90 20 109/71 98 06/27/18 00:16 06/27/18 00:16 06/27/18 00:16 06/27/18 00:16 06/27/18 00:16 Intake and Output: 06/26/18 06/27/18 18:59 06:59 Intake Total 300 Output Total 500 Balance -200 - Medications Medications: Current Medications Acetaminophen (Tylenol 325mg Tab) 650 mg PO Q6 PRN PRN Reason: Pain, moderate (4-7) Last Admin: 06/25/18 10:02 Dose: 650 mg Carbidopa/Levodopa (Sinemet Cr) 1 tab PO TID [facility] Last Admin: 06/26/18 17:54 Dose: 1 tab Cyproheptadine HCl (Periactin) 4 mg PO [facility] Last Admin: 06/26/18 21:43 Dose: 4 mg Docusate Sodium (Colace) 100 mg PO BID [facility] Last Admin: 06/26/18 17:55 Dose: 100 mg Folic Acid (Folic Acid) 1 mg PO DAILY [facility] Last Admin: 06/26/18 09:44 Dose: 1 mg Gabapentin (Neurontin) 300 mg PO BID [facility] Last Admin: 06/26/18 17:55 Dose: 300 mg Influenza Virus Vaccine (Flucelvax Quad [id number] Syr) 60 mcg IM .ONCE ONE Stop: 06/27/18 10:01 Metoprolol Tartrate (Lopressor) 12.5 mg PO BID [facility] Last Admin: 06/26/18 17:55 Dose: 12.5 mg Pantoprazole Sodium (Protonix Ec Tab) 40 mg PO DAILY [facility] Last Admin: 06/26/18 09:44 Dose: 40 mg Pramipexole Dihydrochloride (Mirapex) 0.25 mg PO TID [facility] Last Admin: 06/26/18 17:55 Dose: 0.25 mg Rosuvastatin Calcium (Crestor) 10 mg PO [facility] Last Admin: 06/26/18 21:43 Dose: 10 mg - Labs Labs: 06/26/18 08:29 06/25/18 06:46 PT 24.5 SECONDS (9.7-12.2) H D 06/26/18 08:29 INR 2.2 D 06/26/18 08:29 APTT 45 SECONDS (21-34) H 06/24/18 07:11 - Head Exam Head Exam: ATRAUMATIC - Eye Exam Eye Exam: Normal appearance - ENT Exam ENT Exam: Mucous Membranes Dry - Respiratory Exam Respiratory Exam: NORMAL BREATHING PATTERN - Cardiovascular Exam Cardiovascular Exam: +S1, +S2 - GI/Abdominal Exam GI & Abdominal Exam: Normal Bowel Sounds Assessment and Plan (1) Coumadin toxicity Assessment & Plan: resolving Status: Acute (2) Pulmonary embolism Assessment & Plan: has IVC filter from prior case discussed with Dr. Elizabeth; pt high risk for falls and bleeding complications agree with not restarting coumadin for aspirin 81mg daily Status: Acute (3) Coagulopathy Assessment & Plan: anticoagulation Status: Acute (4) Anemia Assessment & Plan: chronic disease Status: Acute
[2018-06-27 07:40] VITALS: O2SAT 96
[2018-06-27 08:42] LABS: BASO # 0.1 K/uL (0.0-0.2); BASO % 1.4 % (0.0-2.0); EOS # 0.4 K/uL (0.0-0.7); EOS % 5.5 % (0.0-4.0); HEMOGLOBIN 12.5 g/dL (12.0-18.0); LYMPH # 1.2 K/uL (1.0-4.3); LYMPH % 15.2 % (20.0-40.0); MEAN CELL VOLUME 90.4 fL (80.0-94.0); MEAN CORPUSCULAR HEMOGLOBIN 29.2 pg (27.0-31.0); MEAN CORPUSCULAR HGB CONC 32.3 g/dL (33.0-37.0); MEAN PLATELET VOLUME 8.8 fL (7.2-11.7); MONO # 0.7 K/uL (0.0-0.8); MONO % 9.5 % (0.0-10.0); NEUT # 5.4 K/uL (1.8-7.0); NEUT % 68.4 % (50.0-75.0); NRBC % 0.1 % (0.0-2.0); RBC 4.28 Mil/uL (4.40-5.90); RED CELL DISTRIBUTION WIDTH 15.2 % (11.5-14.5); WHITE BLOOD COUNT 7.9 K/uL (4.8-10.8)
[2018-06-27 09:03] LABS: INR 1.9; PROTHROMBIN TIME 21.2 SECONDS (9.7-12.2)
[2018-06-27] MEDS: Pantoprazole 40 mg EC Tab PO SCH (09:11)
[2018-06-27] MEDS: Carbidopa/Levodopa 25/100 CR PO SCH ×3 (09:13→17:51)
[2018-06-27] MEDS ORDERED: Influenza Vaccine 60 mcg/0.5 mL SYR (4YR UP) IM ONE (10:00)
[2018-06-27] MEDS ORDERED: Pneumococcal 23-Valent Vaccine IM ONE (10:00)
[2018-06-27 15:31] VITALS: BP 116/76; PULSE 94; TEMP 99.9
--- NOTE | 2018-06-27 19:10 | PN ---
DATE: 06/27/2018 SUBJECTIVE: The patient denies chest pain or abdominal pain. PHYSICAL EXAMINATION: VITAL SIGNS: Blood pressure 116/69, heart rate 88, temperature 98.5, respiration 20. HEENT: Normocephalic. CHEST: Clear. HEART: S1 and S2, regular. ABDOMEN: Soft. EXTREMITIES: No edema. ASSESSMENT: 1. Status post Coumadin toxicity. Today's INR is 1.9. 2. Parkinsonism. 3. History of deep venous thrombosis and pulmonary embolism, status post inferior vena cava filter placement. RECOMMENDATIONS: Continue Crestor 10 mg once a day, Lopressor 12.5 mg twice a day, Neurontin 300 mg twice a day, Sinemet 1 tablet three times a day. The patient can be transferred to subacute rehab on aspirin and Plavix therapy. Shilo Yanez MD
--- NOTE | 2018-06-28 01:04 | PN ---
DATE: 06/27/2018 SUBJECTIVE: Today, the patient was seen and evaluated this morning. Denies any shortness of breath. No chest pain except the patient admits episodes of anorexia due to the fact that she does not like the food, but the patient is able to eat normal range of food that please him. PHYSICAL EXAMINATION: VITAL SIGNS: The patient has no chest pain, and has blood pressure of 130/69, pulse 88, respirations 20, and temperature 98.5. NECK: Supple. No JVD. LUNGS: Clear. HEART: Regular rate and rhythm. ABDOMEN: Soft. Nontender. No palpable mass. EXTREMITIES: There is some swelling on the right hip, but decreasing in size. NEURO: The patient is mumbling. She walks, but also has unsteady gait. PLAN: The patient will be admitted to subacute rehab, and so, we are going to consider to send this patient to rehab. walk anywhere and transfer. The case was reviewed and discussed with Wendy Cheatham, the nurse practitioner. Stu Elizabeth MD
--- NOTE | 2018-06-30 09:09 | DS ---
HISTORY OF PRESENT ILLNESS: The patient is a 72-year-old male with history of Parkinson disease, hypertension, and history of pulmonary embolism. The patient was brought to the emergency room because of and also of right leg pain. The patient was feeling the right hip was big, increased in size and tender to the point that this is making patient difficult to work. So the patient came to the emergency room, was evaluated and the patient was found to have a very elevated INR which was 9. So the patient was admitted for Coumadin toxicity. The patient has a consult with Dr. Yanez and also consult with Dr. Haney. In the emergency room, the patient has received vitamin K and that has decreased somewhat the INR to 7. PHYSICAL EXAMINATION: EXTREMITIES: The right hip was more bigger to the left and also was tender. LABORATORY DATA: The patient has different tests done and had lower extremity CT that revealed subcutaneous reticulated edema along the lateral aspect of the lateral femoral condyle. ASSESSMENT AND PLAN: The patient was and also started physical therapy, but on the physical therapy the patient remained unstable and consideration was done to present the patient to rehab which was done today. The case was reviewed and discussed with . Stu Elizabeth MD
== END 2018-06-27 21:00 | DRG 813 ==
LOC: C.ER 15:15 → C.9E 17:06 → C.3T 20:04 → OBSVTOIN 06-25 16:59
PROVIDERS: ADMIT Specialist; ATTEND Specialist
DX: D68.32 Hemorrhagic disorder due to extrinsic circulating anticoagulants (principal); T45.515A Adverse effect of anticoagulants, initial encounter; I27.82 Chronic pulmonary embolism; I48.91 Unspecified atrial fibrillation; G20 Parkinson's disease; F02.80 Dementia in other diseases classified elsewhere, unspecified severity, without behavioral disturbance, psychotic disturbance, mood disturbance, and anxiety; R26.9 Unspecified abnormalities of gait and mobility; D64.9 Anemia, unspecified; I11.0 Hypertensive heart disease with heart failure; I50.9 Heart failure, unspecified; M16.11 Unilateral primary osteoarthritis, right hip; G89.29 Other chronic pain; M79.604 Pain in right leg; M17.11 Unilateral primary osteoarthritis, right knee; E78.5 Hyperlipidemia, unspecified; E78.00 Pure hypercholesterolemia, unspecified; Z79.01 Long term (current) use of anticoagulants; Z86.718 Personal history of other venous thrombosis and embolism; Z86.11 Personal history of tuberculosis; Z79.82 Long term (current) use of aspirin

== ENCOUNTER 2018-08-10 19:35 | Inpatient (IN) | payer MEDICARE, OTHER ==
--- NOTE | 2018-08-10 19:52 | C.PDOC ---
History Of Present Illness 72 year old male is brought to the ED by ACLS for evaluation of a syncopal episode while at home. Patient reports he had an argument with his brother at home, felt lightheaded and passed out. Patient denies fever, chills, headache, C P, SOB, palpitations, rash, weakness, numbness. Chief Complaint (Nursing): Syncope History Per: Patient, EMS History/Exam Limitations: no limitations Onset/Duration Of Symptoms: Hrs Current Symptoms Are (Timing): Still Present Number Of Syncopal Episodes: 1 Activity At Onset Of Symptoms: Standing Associated Symptoms Preceding Syncopal Episode: Lightheadedness Seizure Or Post-ictal Symptoms: None Possible Causative Factor(s): Other Fall Associated With With Symptoms: No Severity: None Recent travel outside of the [place]: No Additional History Per: Patient, EMS Past Medical History Reviewed: Historical Data, Nursing Documentation, Vital Signs Vital Signs: Last Vital Signs Temp 97.9 F 08/10/18 19:43 Pulse 109 H 08/10/18 19:43 Resp 20 08/10/18 19:43 BP 94/54 L 08/10/18 19:43 Pulse Ox 97 08/10/18 19:43 - Medical History PMH: Arthritis, HTN, Hypercholesterolemia, Parkinson's Disease, Peripheral Edema, Sexually Transmitted Disease () Denies: Anxiety, Chronic Kidney Disease Surgical History: No Surg Hx - [facility] Procedures INSERTION OF INTRALUM DEV INTO INF VENA CAVA, PERC APPROACH (04/14/17) Family History: States: Unknown Family Hx (no pertinent family history) - Social History Hx Tobacco Use: No Hx Alcohol Use: No Hx Substance Use: No - Immunization History Hx Tetanus Toxoid Vaccination: No Hx Influenza Vaccination: No Hx Pneumococcal Vaccination: No Review Of Systems Constitutional: Negative for: Fever, Chills Eyes: Negative for: Vision Change Cardiovascular: Negative for: Chest Pain, Palpitations Respiratory: Negative for: Shortness of Breath Gastrointestinal: Negative for: Nausea, Vomiting, Abdominal Pain Skin: Negative for: Rash Neurological: Negative for: Weakness, Numbness, Headache, Dizziness Physical Exam - Physical Exam Appears: Non-toxic, No Acute Distress Skin: Normal Color, Warm, Dry Head: Atraumatic, Normacephalic Eye(s): bilateral: Normal Inspection, PERRL, EOMI Oral Mucosa: Moist Neck: Normal ROM, No Midline Cervical Tenderness, Supple Chest: Symmetrical Cardiovascular: Rhythm Regular Respiratory: Normal Breath Sounds, No Rales, No Rhonchi, No Wheezing Gastrointestinal/Abdominal: Soft, No Tenderness, No Guarding, No Rebound Extremity: Normal ROM, No Tenderness, No Swelling Neurological/Psych: Oriented x3, Normal Speech, Normal Cognition, Other (non focal) Gait: Steady ED Course And Treatment - Laboratory Results Result Diagrams: 08/10/18 20:09 08/10/18 20:09 ECG: Interpreted By Me, Viewed By Me ECG Rhythm: Sinus Rhythm, ST/T Changes ECG Interpretation: No Acute Changes, Abnormal Interpretation Of ECG: Sinus tachycardia, T wave flattening at lateral leads, abnormal tracings. Rate From EC O2 Sat by Pulse Oximetry: 97 (ON RA) Pulse Ox Interpretation: Normal - CT Scan/US CT head Other Rad Studies (CT/US): Read By Radiologist, Radiology Report Reviewed CT/US Interpretation: EXAM: CT Head Without IV contrast. CLINICAL HISTORY: Headaches. TECHNIQUE: Axial computed tomography images of the head/brain without intravenous contrast. COMPARISON: None provided. FINDINGS: BRAIN: No acute intraparenchymal hemorrhage. No mass lesion. No CT evidence for acute territorial infarct. No midline shift or extra-axial collections. Generalized cerebral atrophy is present, as demonstrated by diffuse sulcal and ventricular prominence. VENTRICLES: No hydrocephalus. ORBITS: The orbits are unremarkable. SINUSES AND MASTOIDS: Mild mucosal thickening is present within the ethmoid air cells.The paranasal sinuses and mastoid air cells are otherwise clear. BONES: No fracture. SOFT TISSUES: Unremarkable. IMPRESSION: Generalized cerebral atrophy. Mild mucosal thickening within the ethmoid air cells. No acute intracranial abnormality. . Electronically signed on Aug 10, 2018 9:39:19 PM EDT by: Altagracia Gomez M.D., Certified by [employer], Diagnostic Radiology. CT Other Rad Studies (CT/US): Read By Radiologist, Radiology Report Reviewed CT/US Interpretation: EXAM: CT Chest without Intravenous Contrast. CT Abdomen and Pelvis without Intravenous Contrast. CLINICAL HISTORY: Hypotensive episode. TECHNIQUE: Axial computed tomography images of the chest, abdomen and pelvis without intravenous contrast. DLP 913.64. CONTRAST: Without. COMPARISON: 06/14/18. FINDINGS: CHEST: LUNGS: No pulmonary mass. The lungs appear essentially clear. PLEURAL SPACES: No evidence of pneumothorax. No pl eural effusion. HEART: No cardiomegaly. No significant pericardial effusion. LYMPH NODES: No lymphadenopathy is evident. ABDOMEN AND PELVIS: LIVER: Unremarkable. No focal lesions. GALLBLADDER AND BILE DUCTS: The gallbladder appears within normal limits. No radioopaque gallstones are seen. No biliary ductal dilatation is evident. PANCREAS: Unremarkable. SPLEEN: Unremarkable. ADRENAL GLANDS: Unremarkable. KIDNEYS, URETERS, AND BLADDER: Unremarkable. No hydronephrosis or nephrolithiasis. No uterteral or bladder calculi. STOMACH AND BOWEL: Unremarkable appearance of the stomach and bowel. No evidence of bowel obstruction. No evidence suggesting enteritis or colitis. APPENDIX: No evidence of acute appendicitis on CT examination. PERITONEUM: No free fluid. No free air. LYMPH NODES: No lymphadenopathy is evident. VASCULATURE: No evidence of abdominal aortic aneurysm. IVC filter is in place. BONES: No acute osseous abnormality. IMPRESSION: No acute intra-thoracic, intra- abdominal, or intra-pelvic abnormality. . Electronically signed on Aug 10, 2018 10:43:32 PM EDT by: Altagracia Gomez M.D., Certified by [facility], Diagnostic Radiology Progress Note: Rectal exam: brown stool-negative hemoccult. Medical Decision Making Medical Decision Making: Plan: * CT head * EKG * Labs * IV fluids Disposition Discussed With Dr.: Evelyn Louis Doctor Will See Patient In The: Hospital Counseled Patient/Family Regarding: Diagnosis - Disposition Disposition: HOSPITALIZED Disposition Time: 23:50 Condition: STABLE - POA Present On Arrival: None - Clinical Impression Clinical Impression: Syncope, Non-ST elevated myocardial infarction (non-STEMI) - Scribe Statement The provider has reviewed the documentation as recorded by the Scribe Tyshawn Sampson All medical record entries made by the Scribe were at my direction and personally dictated by me. I have reviewed the chart and agree that the record accurately reflects my personal performance of the history, physical exam, medical decision making, and the department course for this patient. I have also personally directed, reviewed, and agree with the discharge instructions and disposition.
[2018-08-10] MEDS ORDERED: Sodium Chloride 0.9% 500 ML IV ONE (19:55)
[2018-08-10 20:15] LABS: BASO % 0.4 % (0.0-2.0); EOS % 0.2 % (0.0-4.0); HEMOGLOBIN 10.9 g/dL (12.0-18.0); LYMPH # 0.6 K/uL (1.0-4.3); LYMPH % 11.6 % (20.0-40.0); MEAN CELL VOLUME 90.1 fL (80.0-94.0); MEAN CORPUSCULAR HEMOGLOBIN 28.5 pg (27.0-31.0); MEAN CORPUSCULAR HGB CONC 31.6 g/dL (33.0-37.0); MEAN PLATELET VOLUME 8.7 fL (7.2-11.7); MONO # 0.4 K/uL (0.0-0.8); MONO % 7.3 % (0.0-10.0); NEUT # 4.2 K/uL (1.8-7.0); NEUT % 80.5 % (50.0-75.0); NRBC % 0.1 % (0.0-2.0); RBC 3.83 Mil/uL (4.40-5.90); WHITE BLOOD COUNT 5.3 K/uL (4.8-10.8)
[2018-08-10] MEDS ORDERED: Sodium Chloride 0.9% 1,000 ML IV ONE ×2 (20:24→21:18)
[2018-08-10 20:33] LABS: ALB/GLOB RATIO 1.2 (1.0-2.1); CALCIUM 9.3 mg/dl (8.6-10.4)
[2018-08-10 20:48] LABS: INR 1.1; PROTHROMBIN TIME 12.2 SECONDS (9.7-12.2); TROPONIN I 1.09 ng/mL (0.00-0.120)
[2018-08-11 04:49] LABS: CK-MB 14.4 ng/mL (0.0-3.38); TROPONIN I 1.24 ng/mL (0.00-0.120)
--- NOTE | 2018-08-11 08:29 | CT ---
Date of service: 08/10/2018 PROCEDURE: CT HEAD WITHOUT CONTRAST. HISTORY: Headache COMPARISON: 06/24/2018. TECHNIQUE: Axial computed tomography images were obtained through the head/brain without intravenous contrast. Radiation dose: Total exam DLP = 996.57 mGy-cm. This CT exam was performed using one or more of the following dose reduction techniques: Automated exposure control, adjustment of the mA and/or kV according to patient size, and/or use of iterative reconstruction technique. FINDINGS: HEMORRHAGE: No intracranial hemorrhage. BRAIN: There are mild chronic microangiopathic changes. There is no mass, mass effect or abnormal extra-axial fluid collection. There is no territorial infarction. The midline sagittal structures are normal. VENTRICLES: There is mild age-related global parenchymal volume loss and proportionate enlargement of the ventricles and cortical sulci. CALVARIUM: There is no calvarial fracture or extracranial soft tissue swelling. PARANASAL SINUSES: There is scattered mucoperiosteal thickening in the ethmoid air cells. The remaining included paranasal sinuses are predominantly clear. MASTOID AIR CELLS: Predominantly clear. OTHER FINDINGS: None. IMPRESSION: No acute intracranial abnormality. Mild chronic microangiopathic changes and mild age-related global parenchymal volume loss. A preliminary report was provided by [employer].
--- NOTE | 2018-08-11 08:42 | RAD ---
Chest x-ray single frontal view HISTORY: Hypotensive episode. COMPARISON: 06/23/2018 FINDINGS: Diffuse increased interstitial lung markings bilaterally. Biapical pleural thickening with upper lobe granulomatous changes. Patchy increased markings at the left lung base. Enlarged ectatic aorta. Mild cardiomegaly. Degenerative changes in the spine with paravertebral osteophytes. IMPRESSION: Diffuse increased interstitial lung markings bilaterally. Biapical pleural thickening with upper lobe granulomatous changes. Patchy increased markings at the left lung base. Enlarged ectatic aorta. Mild cardiomegaly.
--- NOTE | 2018-08-11 09:51 | CP.PCM.CON ---
History of Present Illness - History of Present Illness History of Present Illness: 72 year old male is brought to the ED by ACLS for evaluation of a syncopal episode while at home. Patient reports he had an argument with his brother at home, felt lightheaded and passed out. Patient denies fever, chills, headache, CP, SOB, palpitations, rash, weakness, numbness. Found to have mild inc in troponin. Patient is limited due to parkinsons/dementia Family at bedside: and patient speaks creole: upon questioning he is alert, awake and oriented to self, place and time. He reacalls passing out. Denies any CP, unusual SOB or palpitation No fevers or chills 72 y/o admitted for ? syncope Patient with hx of multiple falls in past Chronic problems include: HTN chronic with reports of low BP in past Anemia Hyperlipidemia Hx of PE and DVT s/p IVCF Hx of parkinsons dementia Chronic diastolic dysfunction Afib reported Deemed high risk for anticoagulation due to falls Hx of subdural hematoma Prior imaging reviewed by me: Carotid doppler 06/12/18: No sig stenosis Echo 05/2018: Normal LVEF grade 1 DD Review of Systems - Review of Systems All systems: reviewed and no additional remarkable complaints except Past Patient History - Past Medical History & Family History Past Medical History?: Yes - Past Social History Smoking Status: Never Smoked - CARDIAC Hx Hypercholesterolemia: Yes Hx Hypertension: Yes Hx Peripheral Edema: Yes - PULMONARY Hx Respiratory Disorders: Yes Hx Tuberculosis: Yes (1965) - NEUROLOGICAL Hx Parkinson's Disease: Yes - HEENT Hx HEENT Problems: No - RENAL Hx Chronic Kidney Disease: No - ENDOCRINE/METABOLIC Hx Endocrine Disorders: No - HEMATOLOGICAL/ONCOLOGICAL Hx Blood Disorders: No - INTEGUMENTARY Hx Dermatological Problems: No - MUSCULOSKELETAL/RHEUMATOLOGICAL Hx Arthritis: Yes - GASTROINTESTINAL Hx Gastrointestinal Disorders: Yes Hx Constipation: Yes Other/Comment: Claimed he takes a small white pill and he moves his bowels - GENITOURINARY/GYNECOLOGICAL Hx Sexually Transmitted Disorders: Yes () - PSYCHIATRIC Hx Anxiety: No Hx Substance Use: No - SURGICAL HISTORY Hx Surgeries: No - ANESTHESIA Hx Anesthesia: No Hx Anesthesia Reactions: No Hx Malignant Hyperthermia: No Meds Allergies/Adverse Reactions: Allergies Allergy/AdvReac Type Severity Reaction Status Date / Time No Known Allergies Allergy Verified 06/23/18 15:32 - Medications Medications: Current Medications Acetaminophen (Tylenol 325mg Tab) 650 mg PO Q6 PRN PRN Reason: Pain, moderate (4-7) Aspirin (Aspirin) 325 mg PO DAILY [facility] Carbidopa/Levodopa (Sinemet Cr) 1 tab PO TID [facility] Clopidogrel Bisulfate (Plavix) 75 mg PO DAILY [facility] Cyproheptadine HCl (Periactin) 4 mg PO HS [facility] Docusate Sodium (Colace) 100 mg PO BID [facility] Enoxaparin Sodium (Lovenox) 80 mg SC DAILY [facility] Folic Acid (Folic Acid) 1 mg PO DAILY [facility] Gabapentin (Neurontin) 300 mg PO BID [facility] Pramipexole Dihydrochloride (Mirapex) 0.25 mg PO TID [facility] Rosuvastatin Calcium (Crestor) 10 mg PO HS [facility] Physical Exam - Constitutional Appears: Chronically Ill - Head Exam Head Exam: ATRAUMATIC, NORMAL INSPECTION, NORMOCEPHALIC - Eye Exam Eye Exam: EOMI, Normal appearance. absent: Scleral icterus - ENT Exam ENT Exam: Mucous Membranes Moist - Neck Exam Neck exam: Positive for: Full Rom, Normal Inspection. Negative for: Tenderness, Thyromegaly - Respiratory Exam Respiratory Exam: Clear to Auscultation Bilateral, NORMAL BREATHING PATTERN. absent: Rales, Rhonchi, Wheezes, Respiratory Distress - Cardiovascular Exam Cardiovascular Exam: REGULAR RHYTHM, +S1, +S2. absent: JVD, Systolic Murmur - GI/Abdominal Exam GI & Abdominal Exam: Normal Bowel Sounds, Soft. absent: Tenderness - Extremities Exam Extremities exam: Positive for: pedal edema, pedal pulses present. Negative for: calf tenderness - Neurological Exam Neurological exam: Alert, Oriented x3 - Skin Skin Exam: Normal Color, Warm Results - Vital Signs Recent Vital Signs: Last Vital Signs Temp 97.3 F L 08/11/18 09:02 Pulse 84 08/11/18 09:02 Resp 20 08/11/18 09:02 BP 106/69 08/11/18 09:02 Pulse Ox 100 08/11/18 09:19 - Labs Result Diagrams: 08/10/18 20:09 08/10/18 20:09 Labs: Laboratory Results - last 24 hr 08/10/18 08/10/18 08/10/18 19:37 20:09 20:09 WBC 5.3 RBC 3.83 L Hgb 10.9 L Hct 34.5 L MCV 90.1 MCH 28.5 MCHC 31.6 L RDW 18.0 H Plt Count 175 D MPV 8.7 Neut % (Auto) 80.5 H Lymph % (Auto) 11.6 L [place] % (Auto) 7.3 Eos % (Auto) 0.2 Baso % (Auto) 0.4 Neut # (Auto) 4.2 Lymph # (Auto) 0.6 L [place] # (Auto) 0.4 Eos # (Auto) 0.0 Baso # (Auto) 0.0 PT INR APTT Sodium 139 Potassium 4.2 Chloride 102 Carbon Dioxide 27 Anion Gap 14 BUN 33 H Creatinine 2.2 H Est GFR ( Amer) 36 Est GFR (Non-Af Amer) 29 POC Glucose (mg/dL) 156 H Random Glucose 124 H Calcium 9.3 Total Bilirubin 0.7 AST 43 ALT 6 L D Alkaline Phosphatase 61 Total Creatine Kinase CK-MB (Mass) Troponin I 1.0900 H* NT-Pro-B Natriuret Pep Total Protein 7.3 Albumin 4.0 Globulin 3.3 Albumin/Globulin Ratio 1.2 08/10/18 08/10/18 08/11/18 20:09 20:09 04:11 WBC RBC Hgb Hct MCV MCH MCHC RDW Plt Count MPV Neut % (Auto) Lymph % (Auto) [place] % (Auto) Eos % (Auto) Baso % (Auto) Neut # (Auto) Lymph # (Auto) [place] # (Auto) Eos # (Auto) Baso # (Auto) PT 12.2 INR 1.1 APTT 29 Sodium Potassium Chloride Carbon Dioxide Anion Gap BUN Creatinine Est GFR ( Amer) Est GFR (Non-Af Amer) POC Glucose (mg/dL) Random Glucose Calcium Total Bilirubin AST ALT Alkaline Phosphatase Total Creatine Kinase 1253 H CK-MB (Mass) 14.4 H Troponin I 1.2400 H* NT-Pro-B Natriuret Pep 181 Total Protein Albumin Globulin Albumin/Globulin Ratio - EKG Data EKG Interpreted by: Myself - Imaging and Cardiology Chest x-ray Status: Image reviewed by me Assessment & Plan - Assessment and Plan (Free Text) Assessment: Syncope > 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 I suggest conservative management Plan: serial troponin cont ASA, plavix and statin re-eval bleeding risk on dual antiplatelets f/u with a repeat echo to eval LVEF and wall motion add ranexa 500 BID LEG edema > patient has had DVT in past, s/p IVCF > also with hx of PE > LE edema with clear lungs and no JVD may be related to chronic venous insufficiency > low dose lasix, leg elevation and compression stockings for now - Date & Time Date: 08/11/18 Time: 10:37
[2018-08-11] MEDS: Carbidopa/Levodopa 25/100 CR PO SCH ×3 (10:27→18:04)
[2018-08-11] MEDS: Enoxaparin 80 mg Syringe SC SCH (10:28)
[2018-08-11 12:53] LABS: CK-MB 12.8 ng/mL (0.0-3.38)
--- NOTE | 2018-08-11 12:53 | CT ---
Date of service: 08/10/2018 CT chest, abdomen, and pelvis without IV contrast Indication: hypotensive episoe Technique: Contiguous axial images of the chest, abdomen, and pelvis without oral or IV contrast. Coronal and Sagittal reformats generated and reviewed. This CT exam was performed using 1 or more of the following dose reduction techniques: Automated exposure control, adjustment of the MAA and/or kV according to patient size, and/or use of iterative reconstruction technique. Radiation dose: Total exam DLP = 913.64 MGy-cm. Comparison: None available Findings: Visualized portions of the inferior thyroid gland appear unremarkable. The unenhanced mediastinal and hilar vascular structures appear grossly unremarkable. Cardiomegaly. Precarinal lymph node measures approximately 1.6 cm in short axis (series 3, image 40) Bibasilar atelectasis. No pleural effusion. No pneumothorax. Bilateral gynecomastia. Fatty atrophy of the pancreas. The noncontrast liver, spleen, kidneys, pancreas, adrenal glands, and gallbladder appear otherwise unremarkable. IVC filter. The stomach is nondistended. Lack of oral contrast limits evaluation for bowel pathology. The bowel loops appear within normal limits of caliber without evidence of intestinal obstruction. There is no definite free air. Question subtle prominence of vasculature/collaterals within the pelvis of unclear significance. The prostate gland measures approximately 3.7 x 4.1 cm. The urinary bladder appears unremarkable. Degenerative changes including confluent anterior osteophyte formation. Impression: Cardiomegaly. Precarinal lymph node measures approximately 1.6 cm in short axis (series 3, image 40) Bibasilar atelectasis. Fatty atrophy of the pancreas. IVC filter. Question subtle prominence of vasculature/collaterals within the pelvis of unclear significance. Bilateral gynecomastia. Preliminary impression was provided by [employer].
[2018-08-11 12:55] LABS: TROPONIN I 0.932 ng/mL (0.00-0.120)
--- NOTE | 2018-08-11 14:16 | NM ---
Date of service: 08/11/2018 COMPARISON: August 10, 2018. CT thorax August 10, 2018. Single-view chest TECHNIQUE: 12.9 mCi technetium 99-m Xe-133 Gas. 3.4 mCI technetium 99-m MAA administered intravenously. FINDINGS: VENTILATION COMPONENT: Normal. PERFUSION COMPONENT: Heterogeneous distribution of radionuclide. No geographic, segmental, lobar abnormalities apparent on the present examination. IMPRESSION: Low probability ventilation perfusion scan for pulmonary embolism.
--- NOTE | 2018-08-11 17:58 | RAD ---
Date of service: 08/11/2018 PROCEDURE: Radiographs of the Sacrum and Coccyx, four views HISTORY: fall COMPARISON: None available. TECHNIQUE: Frontal and lateral views of the sacrum and coccyx. 4 views obtained. FINDINGS: BONES: Sacrum and coccyx unremarkable. No fracture or focal lesion. SACROILIAC JOINTS: Unremarkable. OTHER FINDINGS: None. IMPRESSION: Unremarkable radiographs of the sacrum and coccyx.
--- NOTE | 2018-08-11 19:07 | CP.PCM.HP ---
Past Patient History - Past Medical History & Family History Past Medical History?: Yes - Past Social History Smoking Status: Never Smoked - CARDIAC Hx Hypercholesterolemia: Yes Hx Hypertension: Yes - PULMONARY Hx Respiratory Disorders: Yes Hx Tuberculosis: Yes (1965) - NEUROLOGICAL Hx Parkinson's Disease: Yes - HEENT Hx HEENT Problems: No - RENAL Hx Chronic Kidney Disease: No - ENDOCRINE/METABOLIC Hx Endocrine Disorders: No - HEMATOLOGICAL/ONCOLOGICAL Hx Blood Disorders: No - INTEGUMENTARY Hx Dermatological Problems: No - MUSCULOSKELETAL/RHEUMATOLOGICAL Hx Arthritis: Yes - GASTROINTESTINAL Hx Gastrointestinal Disorders: Yes Hx Constipation: Yes Other/Comment: Claimed he takes a small white pill and he moves his bowels - GENITOURINARY/GYNECOLOGICAL Hx Sexually Transmitted Disorders: Yes () - PSYCHIATRIC Hx Anxiety: No Hx Substance Use: No - SURGICAL HISTORY Hx Surgeries: No - ANESTHESIA Hx Anesthesia: No Hx Anesthesia Reactions: No Hx Malignant Hyperthermia: No Meds Allergies/Adverse Reactions: Allergies Allergy/AdvReac Type Severity Reaction Status Date / Time No Known Allergies Allergy Verified 06/23/18 15:32 Physical Exam - Constitutional Appears: Well - Head Exam Head Exam: ATRAUMATIC, NORMAL INSPECTION, NORMOCEPHALIC - Eye Exam Eye Exam: EOMI, Normal appearance, PERRL Pupil Exam: NORMAL ACCOMODATION, PERRL - ENT Exam ENT Exam: Mucous Membranes Moist, Normal Exam - Neck Exam Neck exam: Positive for: Normal Inspection - Respiratory Exam Respiratory Exam: Decreased Breath Sounds - Cardiovascular Exam Cardiovascular Exam: REGULAR RHYTHM, +S1, +S2 - GI/Abdominal Exam GI & Abdominal Exam: Diminished Bowel Sounds, Soft - Rectal Exam Rectal Exam: Deferred - Neurological Exam Neurological exam: Oriented x3 Results - Vital Signs Recent Vital Signs: Last Vital Signs Temp 98.0 F 08/11/18 15:12 Pulse 97 H 08/11/18 15:12 Resp 20 08/11/18 15:12 BP 122/70 08/11/18 15:12 Pulse Ox 100 08/11/18 15:12 - Labs Result Diagrams: 08/10/18 20:09 08/10/18 20:09 Labs: Laboratory Results - last 24 hr 08/10/18 08/10/18 08/10/18 19:37 20:09 20:09 WBC 5.3 RBC 3.83 L Hgb 10.9 L Hct 34.5 L MCV 90.1 MCH 28.5 MCHC 31.6 L RDW 18.0 H Plt Count 175 D MPV 8.7 Neut % (Auto) 80.5 H Lymph % (Auto) 11.6 L Appling % (Auto) 7.3 Eos % (Auto) 0.2 Baso % (Auto) 0.4 Neut # (Auto) 4.2 Lymph # (Auto) 0.6 L Appling # (Auto) 0.4 Eos # (Auto) 0.0 Baso # (Auto) 0.0 PT INR APTT Sodium 139 Potassium 4.2 Chloride 102 Carbon Dioxide 27 Anion Gap 14 BUN 33 H Creatinine 2.2 H Est GFR ( Amer) 36 Est GFR (Non-Af Amer) 29 POC Glucose (mg/dL) 156 H Random Glucose 124 H Calcium 9.3 Total Bilirubin 0.7 AST 43 ALT 6 L D Alkaline Phosphatase 61 Total Creatine Kinase CK-MB (Mass) Troponin I 1.0900 H* NT-Pro-B Natriuret Pep Total Protein 7.3 Albumin 4.0 Globulin 3.3 Albumin/Globulin Ratio 1.2 08/10/18 08/10/18 08/11/18 20:09 20:09 04:11 WBC RBC Hgb Hct MCV MCH MCHC RDW Plt Count MPV Neut % (Auto) Lymph % (Auto) Appling % (Auto) Eos % (Auto) Baso % (Auto) Neut # (Auto) Lymph # (Auto) Appling # (Auto) Eos # (Auto) Baso # (Auto) PT 12.2 INR 1.1 APTT 29 Sodium Potassium Chloride Carbon Dioxide Anion Gap BUN Creatinine Est GFR ( Amer) Est GFR (Non-Af Amer) POC Glucose (mg/dL) Random Glucose Calcium Total Bilirubin AST ALT Alkaline Phosphatase Total Creatine Kinase 1253 H CK-MB (Mass) 14.4 H Troponin I 1.2400 H* NT-Pro-B Natriuret Pep 181 Total Protein Albumin Globulin Albumin/Globulin Ratio 08/11/18 12:21 WBC RBC Hgb Hct MCV MCH MCHC RDW Plt Count MPV Neut % (Auto) Lymph % (Auto) Appling % (Auto) Eos % (Auto) Baso % (Auto) Neut # (Auto) Lymph # (Auto) Appling # (Auto) Eos # (Auto) Baso # (Auto) PT INR APTT Sodium Potassium Chloride Carbon Dioxide Anion Gap BUN Creatinine Est GFR ( Amer) Est GFR (Non-Af Amer) POC Glucose (mg/dL) Random Glucose Calcium Total Bilirubin AST ALT Alkaline Phosphatase Total Creatine Kinase 1446 H CK-MB (Mass) 12.8 H Troponin I 0.9320 H* NT-Pro-B Natriuret Pep Total Protein Albumin Globulin Albumin/Globulin Ratio
--- NOTE | 2018-08-12 02:26 | CON ---
DATE: 08/11/2018 REASON FOR CONSULTATION: Syncope and elevated troponin. The history was obtained from the patient via a [place]ian silk screen painter who happened to be an RN on the floor by name of Jaky. HISTORY OF PRESENT ILLNESS: The patient is a 72-year-old [place] male who has history of DVT and pulmonary embolism in the past, presented because of syncopal episode. The patient stated after he ate as he was trying to stand up and walk, he felt lightheaded and collapsed and hit his buttock, which is painful at the coccyx. The patient denies any injury and does not recall complete loss of consciousness. The patient never experienced any chest pain. The patient denies any headache or dizziness at this time. SOCIAL HISTORY: Nonsmoker, nondrinker. He lives with his brother and sister. MEDICATIONS: Aspirin 325 mg once a day, Colace 100 mg twice a day, Crestor 10 mg once a day, folic acid 1 mg daily, Lovenox 80 mg subcutaneous daily, Neurontin 300 mg twice a day, Plavix 75 mg once a day, Sinemet one tablet t.i.d. PAST MEDICAL HISTORY: Parkinsonism, DVT and pulmonary embolus. The patient was taken off Coumadin because of his frequent falls. PHYSICAL EXAMINATION: GENERAL: The patient is an elderly male who does not appear to be in any distress. VITAL SIGNS: Blood pressure 106/69, heart rate 84, temperature 97.3, respirations 20. HEENT: Normocephalic. CHEST: Clear. HEART: S1 and S2, regular. EXTREMITIES: 1+ pitting edema. No calf tenderness. LABORATORY DATA: Admitting SMA-7: Sodium 139, potassium 4.2, chloride 102, CO2 of 27, glucose 124, BUN 33, creatinine 2.2. Troponin 0.109, 1.24, and 0.932. Admitting hemoglobin and hematocrit of 10.9 and 34.5, white count and platelet count are within normal limits. PT, PTT, and INR are within normal limits. EKG revealed sinus rhythm , nonspecific T wave changes Chest, abdomen, and pelvis CT scan without contrast, impression cardiomegaly, precarinal lymph node measures 1.6 cm on the short axis. Bilateral atelectasis. Fatty atrophy of the pancreas. IVC filter. Questionable subtle prominence of vasculature/collaterals within the pelvis of unclear significance. Bilateral gynecomastia. A CT scan without contrast, no acute intracranial abnormality. Mild chronic microangiopathic changes and mild age-related parenchymal volume loss. Chest, abdomen, and pelvis CT angio performed in 05/2018 revealed no evidence of aortic aneurysm or dissection. Non-obstructing left upper femoral artery emboli noted. Mild enlarged main pulmonary artery. IVC filter seen. Carotid Doppler performed in 05/2018, no hemodynamically significant disease. ASSESSMENT: 1. Near syncopal episode. 2. Borderline troponin elevation, rule out recurrent pulmonary emboli. 3. Rule out risk factor possibility of [id number] myocardial infarction. 4. Chronic renal insufficiency. 5. Parkinsonism. 6. Mild anemia. 7. History of deep venous thrombosis and pulmonary emboli in 03/2017 status post inferior vena cava filter placement. RECOMMENDATIONS: Continue Plavix 75 mg once a day, Sinemet one tablet t.i.d., Lovenox at 80 mg subcutaneous once a day. Change aspirin to 81 mg once a day. Continue Crestor 10 mg once a day. Obtain venous Doppler of the lower extremity as well as ventilation perfusion scan. In the meantime, I will obtain x-ray on the sacral and coccyx bones. Shilo Yanez MD MTDD
[2018-08-12] MEDS: Carbidopa/Levodopa 25/100 CR PO SCH ×3 (09:26→18:14)
[2018-08-12] MEDS: Enoxaparin 80 mg Syringe SC SCH (09:27)
[2018-08-12] MEDS ORDERED: Heparin25000 units/250ml 1/2NS 25,000 UNITS/250 ML BAG IV PRN ×2 (10:47→20:00)
--- NOTE | 2018-08-12 12:42 | CP.PCM.PN ---
Subjective - Date & Time of Evaluation Date of Evaluation: 08/12/18 Time of Evaluation: 12:39 - Subjective Subjective: No cardiac complaints No SOB + LE edema No fevers, chills, N/V Objective - Vital Signs/Intake and Output Vital Signs (last 24 hours): Temp Pulse Resp BP Pulse Ox 98.3 F 82 20 121/79 95 08/12/18 08:26 08/12/18 09:00 08/12/18 08:26 08/12/18 08:26 08/12/18 08:26 - Medications Medications: Current Medications Acetaminophen (Tylenol 325mg Tab) 650 mg PO Q6 PRN PRN Reason: Pain, moderate (4-7) Aspirin (Aspirin Chewable) 81 mg PO DAILY [facility] Last Admin: 08/12/18 09:26 Dose: 81 mg Carbidopa/Levodopa (Sinemet Cr) 1 tab PO TID [facility] Last Admin: 08/12/18 09:26 Dose: 1 tab Clopidogrel Bisulfate (Plavix) 75 mg PO DAILY [facility] Last Admin: 08/12/18 09:26 Dose: 75 mg Cyproheptadine HCl (Periactin) 4 mg PO HS [facility] Last Admin: 08/11/18 21:36 Dose: 4 mg Docusate Sodium (Colace) 100 mg PO BID [facility] Last Admin: 08/12/18 09:26 Dose: 100 mg Folic Acid (Folic Acid) 1 mg PO DAILY [facility] Last Admin: 08/12/18 09:26 Dose: 1 mg Gabapentin (Neurontin) 300 mg PO BID [facility] Last Admin: 08/12/18 09:26 Dose: 300 mg Heparin Sodium/Sodium Chloride (Heparin 66409 Units/250ml 1/2 Normal Saline) 25,000 units in 250 mls @ 14.696 mls/hr IV .Q17H1M PRN; Protocol PRN Reason: ADJUST RATE PER PROTOCOL Last Admin: 08/12/18 11:50 Dose: 18 units/kg/hr, 14.696 mls/hr [facility] Last Admin: 08/12/18 08:10 Dose: 12.5 mg Pramipexole Dihydrochloride (Mirapex) 0.25 mg PO TID [facility] Last Admin: 08/12/18 09:27 Dose: 0.25 mg Rosuvastatin Calcium (Crestor) 10 mg PO HS [facility] Last Admin: 08/11/18 21:36 Dose: 10 mg - Labs Labs: 08/10/18 20:09 08/10/18 20:09 PT 12.2 SECONDS (9.7-12.2) 08/10/18 20:09 INR 1.1 08/10/18 20:09 APTT 29 SECONDS (21-34) 08/10/18 20:09 - Constitutional Appears: Chronically Ill - Head Exam Head Exam: ATRAUMATIC, NORMAL INSPECTION, NORMOCEPHALIC - Eye Exam Eye Exam: EOMI. absent: Scleral icterus - ENT Exam ENT Exam: Mucous Membranes Moist, Normal Oropharynx - Neck Exam Neck Exam: Full ROM, Normal Inspection - Respiratory Exam Respiratory Exam: Clear to Ausculation Bilateral. absent: Rhonchi, Wheezes - Cardiovascular Exam Cardiovascular Exam: REGULAR RHYTHM, +S1, +S2. absent: JVD, Murmur - GI/Abdominal Exam GI & Abdominal Exam: Soft. absent: Tenderness - Extremities Exam Extremities Exam: Pedal Edema. 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 I suggest conservative management Plan: serial troponin 1.2 > 1 > 0.9 cont ASA, plavix and statin re-eval bleeding risk on dual antiplatelets f/u with a repeat echo to eval LVEF and wall motion add ranexa 500 BID LEG edema > patient has had DVT in past, s/p IVCF > also with hx of PE in past: recent V/Q low probability > Prelin LE doppler suggests acute on chronic LE DVT: He has an IVCF > agree with interim heparin use: fall risk....will need to weigh R&B if going to be used chronically > LE edema with clear lungs and no JVD may be related to chronic venous insufficiency > low dose lasix, leg elevation
--- NOTE | 2018-08-12 17:42 | PN ---
DATE: 08/12/2018 SUBJECTIVE: The patient denies any chest pain. No reported arrhythmia. The venous Doppler of the lower extremities reveal bilateral acute DVT. PHYSICAL EXAMINATION: VITAL SIGNS: Blood pressure 121/79, heart rate 82, temperature 98.3, respirations 20. HEENT: Pale conjunctivae. CHEST: Clear. HEART: S1 and S2 regular. EXTREMITIES: 1+ pitting edema. Ventilation-perfusion scan low probability for pulmonary embolus. Sacrum and coccyx x-ray unremarkable. ASSESSMENT: 1. Borderline troponin elevation, very likely represent recurrent pulmonary infarction in view of acute bilateral lower extremity deep vein thrombosis. 2. Parkinsonism. RECOMMENDATIONS: The case was discussed with PURCHASING INTERN. The patient was started on intravenous heparin in therapeutic regimen. Continue aspirin 81 mg once a day, Lopressor 12.5 mg twice a day, Sinemet at 1 tablet t.i.d. Discontinue Plavix. Shilo Yanez MD
--- NOTE | 2018-08-12 18:47 | CP.PCM.PN ---
Subjective - Date & Time of Evaluation Date of Evaluation: 08/12/18 Time of Evaluation: 09:30 - Subjective Subjective: patient seen today no nausea no vomiting no dizziness no diarrhea no sob no fever Objective - Vital Signs/Intake and Output Vital Signs (last 24 hours): Temp Pulse Resp BP Pulse Ox 97.6 F 87 20 151/83 H 99 08/12/18 15:25 08/12/18 15:25 08/12/18 15:25 08/12/18 15:25 08/12/18 15:25 - Medications Medications: Current Medications Acetaminophen (Tylenol 325mg Tab) 650 mg PO Q6 PRN PRN Reason: Pain, moderate (4-7) Aspirin (Aspirin Chewable) 81 mg PO DAILY [facility] Last Admin: 08/12/18 09:26 Dose: 81 mg Carbidopa/Levodopa (Sinemet Cr) 1 tab PO TID [facility] Last Admin: 08/12/18 18:14 Dose: 1 tab Cyproheptadine HCl (Periactin) 4 mg PO HS [facility] Last Admin: 08/11/18 21:36 Dose: 4 mg Docusate Sodium (Colace) 100 mg PO BID [facility] Last Admin: 08/12/18 18:12 Dose: 100 mg Folic Acid (Folic Acid) 1 mg PO DAILY [facility] Last Admin: 08/12/18 09:26 Dose: 1 mg Gabapentin (Neurontin) 300 mg PO BID [facility] Last Admin: 08/12/18 18:13 Dose: 300 mg Heparin Sodium/Sodium Chloride (Heparin 38696 Units/250ml 1/2 Normal Saline) 25,000 units in 250 mls @ 14.696 mls/hr IV .Q17H1M PRN; Protocol PRN Reason: ADJUST RATE PER PROTOCOL Last Admin: 08/12/18 11:50 Dose: 18 units/kg/hr, 14.696 mls/hr Metoprolol Tartrate (Lopressor) 12.5 mg PO BIDCC [facility] Last Admin: 08/12/18 18:13 Dose: 12.5 mg Pramipexole Dihydrochloride (Mirapex) 0.25 mg PO TID [facility] Last Admin: 08/12/18 18:13 Dose: 0.25 mg Rosuvastatin Calcium (Crestor) 10 mg PO HS [facility] Last Admin: 08/11/18 21:36 Dose: 10 mg - Labs Labs: 08/10/18 20:09 04/14/19 20:09 PT 12.2 SECONDS (9.7-12.2) 08/10/18 20:09 INR 1.1 08/10/18 20:09 APTT 29 SECONDS (21-34) 08/10/18 20:09 - Constitutional Appears: Well - Head Exam Head Exam: ATRAUMATIC, NORMAL INSPECTION, NORMOCEPHALIC - Eye Exam Eye Exam: EOMI, Normal appearance, PERRL Pupil Exam: NORMAL ACCOMODATION, PERRL - ENT Exam ENT Exam: Mucous Membranes Moist, Normal Exam - Neck Exam Neck Exam: Full ROM, Normal Inspection. absent: Lymphadenopathy - Respiratory Exam Respiratory Exam: Decreased Breath Sounds - Cardiovascular Exam Cardiovascular Exam: REGULAR RHYTHM, +S1, +S2 - GI/Abdominal Exam GI & Abdominal Exam: Soft, Diminished Bowel Sounds - Rectal Exam Rectal Exam: Deferred - Neurological Exam Neurological Exam: Oriented x3 Assessment and Plan - Assessment and Plan (Free Text) Plan: labs reviewed medications reviewed vitals reviewed aspirin chewable colace crestor folic acid heparin lopressor mirapex neurontin periactin sinemet cr tylenol
--- NOTE | 2018-08-12 20:34 | CARD ---
APPROVED REPORT Date of service: 08/11/2018 EKG Measurement Heart [id number] <Conclusion> Sinus tachycardia Nonspecific T wave abnormality Abnormal ECG
[2018-08-13 04:53] LABS: INR 1.1; PROTHROMBIN TIME 12.2 SECONDS (9.7-12.2)
[2018-08-13] MEDS: Heparin25000 units/250ml 1/2NS 25,000 UNITS/250 ML BAG IV PRN (06:49)
[2018-08-13 07:46] LABS: EOS # 0.5 K/uL (0.0-0.7); EOS % 11.5 % (0.0-4.0); HEMOGLOBIN 11.3 g/dL (12.0-18.0); LYMPH # 1.5 K/uL (1.0-4.3); MEAN CELL VOLUME 91.4 fL (80.0-94.0); MEAN CORPUSCULAR HEMOGLOBIN 29.4 pg (27.0-31.0); MEAN CORPUSCULAR HGB CONC 32.2 g/dL (33.0-37.0); MEAN PLATELET VOLUME 10.3 fL (7.2-11.7); MONO # 0.5 K/uL (0.0-0.8); MONO % 10.6 % (0.0-10.0); NEUT % 43.9 % (50.0-75.0); NRBC % 0.1 % (0.0-2.0); RBC 3.83 Mil/uL (4.40-5.90); RED CELL DISTRIBUTION WIDTH 18.5 % (11.5-14.5); WHITE BLOOD COUNT 4.6 K/uL (4.8-10.8)
[2018-08-13 08:19] LABS: CALCIUM 9.1 mg/dl (8.6-10.4)
[2018-08-13] MEDS: Carbidopa/Levodopa 25/100 CR PO SCH ×3 (10:24→17:39)
--- NOTE | 2018-08-13 12:46 | CP.PCM.PN ---
Objective - Vital Signs/Intake and Output Vital Signs (last 24 hours): Temp Pulse Resp BP Pulse Ox 98.2 F 86 20 124/76 96 08/13/18 07:00 08/13/18 07:40 08/13/18 07:00 08/13/18 07:00 08/13/18 07:00 - Medications Medications: Current Medications Acetaminophen (Tylenol 325mg Tab) 650 mg PO Q6 PRN PRN Reason: Pain, moderate (4-7) Aspirin (Aspirin Chewable) 81 mg PO DAILY [facility] Last Admin: 08/13/18 10:18 Dose: 81 mg Carbidopa/Levodopa (Sinemet Cr) 1 tab PO TID [facility] Last Admin: 08/13/18 10:24 Dose: 1 tab Cyproheptadine HCl (Periactin) 4 mg PO HS [facility] Last Admin: 08/12/18 21:18 Dose: 4 mg Docusate Sodium (Colace) 100 mg PO BID [facility] Last Admin: 08/13/18 10:20 Dose: 100 mg Folic Acid (Folic Acid) 1 mg PO DAILY [facility] Last Admin: 08/13/18 10:21 Dose: 1 mg Gabapentin (Neurontin) 300 mg PO BID [facility] Last Admin: 08/13/18 10:19 Dose: 300 mg Heparin Sodium/Sodium Chloride (Heparin 98161 Units/250ml 1/2 Normal Saline) 25,000 units in 250 mls @ 9.798 mls/hr IV .Q24H PRN; Protocol PRN Reason: ADJUST RATE PER PROTOCOL Last Admin: 08/13/18 06:49 Dose: 12 units/kg/hr, 9.798 mls/hr Metoprolol Tartrate (Lopressor) 12.5 mg PO BIDCC [facility] Last Admin: 08/13/18 08:38 Dose: 12.5 mg Pramipexole Dihydrochloride (Mirapex) 0.25 mg PO TID [facility] Last Admin: 08/13/18 10:23 Dose: 0.25 mg Rosuvastatin Calcium (Crestor) 10 mg PO HS [facility] Last Admin: 08/12/18 21:18 Dose: 10 mg - Labs Labs: 08/13/18 07:25 08/13/18 07:25 PT 12.2 SECONDS (9.7-12.2) 08/13/18 04:45 INR 1.1 08/13/18 04:45 APTT 83 SECONDS (21-34) H D 08/13/18 11:22 Assessment and Plan - Assessment and Plan (Free Text) Assessment: - Constitutional Appears: Chronically Ill - Head Exam Head Exam: ATRAUMATIC, NORMAL INSPECTION, NORMOCEPHALIC - Eye Exam Eye Exam: EOMI. absent: Scleral icterus - ENT Exam ENT Exam: Mucous Membranes Moist, Normal Oropharynx - Neck Exam Neck Exam: Full ROM, Normal Inspection - Respiratory Exam Respiratory Exam: Clear to Ausculation Bilateral. absent: Rhonchi, Wheezes - Cardiovascular Exam Cardiovascular Exam: REGULAR RHYTHM, +S1, +S2. absent: JVD, Murmur - GI/Abdominal Exam GI & Abdominal Exam: Soft. absent: Tenderness - Extremities Exam Extremities Exam: Pedal Edema. 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 I suggest conservative management Plan: serial troponin 1.2 > 1 > 0.9 cont ASA, plavix and statin re-eval bleeding risk on dual antiplatelets f/u with a repeat echo SHOWS NORMAL LV SYSTOLIC FUNCTION NO REGIONAL WALL MOTION ABNORMALITIES; FILLING PRESSURES NOT EVALUATED. add ranexa 500 BID LEG edema > patient has had DVT in past, s/p IVCF > also with hx of PE in past: recent V/Q low probability > Prelin LE doppler suggests acute on chronic LE DVT: He has an IVCF > agree with interim heparin use: fall risk....will need to weigh R&B if going to be used chronically > LE edema with clear lungs and no JVD may be related to chronic venous insufficiency > low dose lasix, leg elevation
--- NOTE | 2018-08-13 13:52 | VASCLAB ---
Date of service: 08/12/2018 PROCEDURE: Lower Extremity Venous Duplex Exam. HISTORY: Leg swelling PRIORS: Last exam on 06/13/2018, normal. TECHNIQUE: Bilateral common femoral, femoral, popliteal and posterior tibial, peroneal and great saphenous veins were evaluated. Flow was assessed with color Doppler, compressibility, assessment of phasic flow and augmentation response. Report prepared by SAMUEL Mccarty FINDINGS: RIGHT: 1. Common Femoral Vein: 1.1. Compressibility - Partial: Thrombus - Acute : Flow - Reduced 2. Femoral Vein: 2.1. Compressibility - Partial: Thrombus - Acute : Flow - Absent 3. Popliteal Vein: 3.1. Compressibility - Fully compressible: Thrombus - None : Flow - Phasic: Augmentation -Normal: Reflux - Mild 1.76s 4. Posterior Tibial Vein: 4.1. Compressibility - Fully compressible: Thrombus - None: Flow - Phasic: Augmentation -Normal: Reflux - None. 5. Peroneal Vein: 5.1. Not visualized due to swelling. 6. Great Saphenous Vein: 6.1. Compressibility - Fully compressible: Thrombus - None: Flow - Phasic: Augmentation - Normal: Reflux - None. LEFT: 1. Common Femoral Vein: 1.1. Compressibility - Partial: Thrombus - Acute: Flow - Reduced 2. Femoral Vein: 2.1. Compressibility - Incompressible: Thrombus - Acute: Flow - Reduced 3. Popliteal Vein: 3.1. Compressibility - Incompressible: Thrombus - Acute : Flow - Absent 4. Posterior Tibial Vein: 4.1. Compressibility - Fully compressible: Thrombus - None: Flow - Phasic: Augmentation -Normal: Reflux - None. 5. Peroneal Vein: 5.1. Not visualized due to swelling. 6. Great Saphenous Vein: 6.1. Compressibility - Fully compressible: Thrombus - None: Flow - Phasic: Augmentation - Normal: Reflux - None. OTHER FINDINGS: Soft tissue edema noted. IMPRESSION: Right: Acute deep vein thrombosis of the right common femoral and femoral veins, with severe reduction of the venous return. Mild valvular incompetence noted of the right popliteal vein. Left: Acute deep vein thrombosis of the left common femoral, femoral and popliteal veins with severe reduction of the venous return. Findings were reported to Abdulaziz Lau at 10:43 a.m.
--- NOTE | 2018-08-13 19:35 | CP.PCM.PN ---
Subjective - Date & Time of Evaluation Date of Evaluation: 08/13/18 - Subjective Subjective: patient seen and examined today no nausea, no vomiting, no dizziness, no fever, no shortness of breath Objective - Vital Signs/Intake and Output Vital Signs (last 24 hours): Temp Pulse Resp BP Pulse Ox 97.9 F 71 20 128/72 100 08/13/18 15:00 08/13/18 15:00 08/13/18 15:00 08/13/18 17:39 08/13/18 15:00 Intake and Output: 08/13/18 08/14/18 18:59 06:59 Intake Total 378 Output Total 400 Balance -22 - Medications Medications: Current Medications Acetaminophen (Tylenol 325mg Tab) 650 mg PO Q6 PRN PRN Reason: Pain, moderate (4-7) Aspirin (Aspirin Chewable) 81 mg PO DAILY [facility] Last Admin: 08/13/18 10:18 Dose: 81 mg Carbidopa/Levodopa (Sinemet Cr) 1 tab PO TID [facility] Last Admin: 08/13/18 17:39 Dose: 1 tab Cyproheptadine HCl (Periactin) 4 mg PO HS [facility] Last Admin: 08/12/18 21:18 Dose: 4 mg Docusate Sodium (Colace) 100 mg PO BID [facility] Last Admin: 08/13/18 17:39 Dose: 100 mg Folic Acid (Folic Acid) 1 mg PO DAILY [facility] Last Admin: 08/13/18 10:21 Dose: 1 mg Furosemide (Lasix) 40 mg PO DAILY [facility] Last Admin: 08/13/18 17:39 Dose: 40 mg Gabapentin (Neurontin) 300 mg PO BID [facility] Last Admin: 08/13/18 17:39 Dose: 300 mg Heparin Sodium/Sodium Chloride (Heparin 05797 Units/250ml 1/2 Normal Saline) 2 5,000 units in 250 mls @ 9.798 mls/hr IV .Q24H PRN; Protocol PRN Reason: ADJUST RATE PER PROTOCOL Last Admin: 08/13/18 06:49 Dose: 12 units/kg/hr, 9.798 mls/hr [facility] Last Admin: 08/13/18 17:43 Dose: 12.5 mg Pramipexole Dihydrochloride (Mirapex) 0.25 mg PO TID [facility] Last Admin: 08/13/18 17:38 Dose: 0.25 mg Rosuvastatin Calcium (Crestor) 10 mg PO HS [facility] Last Admin: 08/12/18 21:18 Dose: 10 mg - Labs Labs: 08/13/18 07:25 08/13/18 07:25 PT 12.2 SECONDS (9.7-12.2) 08/13/18 04:45 INR 1.1 08/13/18 04:45 APTT 72 SECONDS (21-34) H D 08/13/18 17:23 - Constitutional Appears: Well - Head Exam Head Exam: ATRAUMATIC, NORMAL INSPECTION, NORMOCEPHALIC - Eye Exam Eye Exam: EOMI, Normal appearance, PERRL Pupil Exam: NORMAL ACCOMODATION, PERRL - ENT Exam ENT Exam: Mucous Membranes Moist, Normal Exam - Neck Exam Neck Exam: Full ROM, Normal Inspection. absent: Lymphadenopathy - Respiratory Exam Respiratory Exam: Decreased Breath Sounds - Cardiovascular Exam Cardiovascular Exam: REGULAR RHYTHM, +S1, +S2 - GI/Abdominal Exam GI & Abdominal Exam: Soft, Diminished Bowel Sounds - Rectal Exam Rectal Exam: Deferred - Neurological Exam Neurological Exam: Oriented x3 Assessment and Plan - Assessment and Plan (Free Text) Plan: colace crestor folic acid heparin lopressor mirapex neurontin periactin sinemet cr tylenol medications reviewed labs reviewed vitals reviewed
--- NOTE | 2018-08-13 22:12 | PN ---
DATE: 08/13/2018 SUBJECTIVE: The patient denies any chest pain. PHYSICAL EXAMINATION: VITAL SIGNS: Blood pressure 124/76, heart rate 83, temperature 98.2, and respirations 20. HEENT: Normocephalic. CHEST: Clear. HEART: S1 and S2. Regular. EXTREMITIES: 1+ pitting edema. LABORATORY DATA: Today's SMA-7 is within normal limits except for anion gap of 8. Today's hemoglobin and hematocrit are 11.3 and 35, white count 12.6, and platelet count 180,000. Official report of venous Doppler of lower extremities, on the right, acute deep venous thrombosis in the right common femoral veins with severe reduction of the venous return. Mild valvular incompetence noted at the right popliteal vein. On the left, acute deep venous thrombosis of the left common femoral, femoral and popliteal vein with severe reduction of the venous return. ASSESSMENT AND PLAN: 1. Acute bilateral deep venous thrombosis of _both Lower Extremities extending from the common femoral to the popliteal veins. 2. Borderline troponin elevation most likely related to underlying pulmonary infarcts caused by embolization from the bilateral acute deep venous thrombosis. 3. Parkinsonism. RECOMMENDATIONS: The case was discussed with Dr. Ritesh Louis. Continue aspirin 81 mg once a day, Crestor 10 mg once a day, folic acid 1 mg once a day, therapeutic intravenous heparin, Sinemet at 1 tablet t.i.d. I will start Coumadin 5 mg orally today. Follow up INR in a.m. Shilo Yanez MD MTDD
[2018-08-14] MEDS: Heparin25000 units/250ml 1/2NS 25,000 UNITS/250 ML BAG IV PRN (00:48)
[2018-08-14 06:41] LABS: BASO % 0.6 % (0.0-2.0); EOS # 0.5 K/uL (0.0-0.7); EOS % 11.8 % (0.0-4.0); HEMOGLOBIN 11.6 g/dL (12.0-18.0); LYMPH # 1.5 K/uL (1.0-4.3); LYMPH % 33.5 % (20.0-40.0); MEAN CELL VOLUME 90.4 fL (80.0-94.0); MEAN CORPUSCULAR HEMOGLOBIN 28.8 pg (27.0-31.0); MEAN CORPUSCULAR HGB CONC 31.8 g/dL (33.0-37.0); MEAN PLATELET VOLUME 9.5 fL (7.2-11.7); MONO # 0.6 K/uL (0.0-0.8); MONO % 13.4 % (0.0-10.0); NEUT # 1.8 K/uL (1.8-7.0); NEUT % 40.7 % (50.0-75.0); NRBC % 0.3 % (0.0-2.0); RBC 4.04 Mil/uL (4.40-5.90); RED CELL DISTRIBUTION WIDTH 18.5 % (11.5-14.5); WHITE BLOOD COUNT 4.5 K/uL (4.8-10.8)
[2018-08-14 06:44] LABS: INR 1.1; PROTHROMBIN TIME 12.5 SECONDS (9.7-12.2)
[2018-08-14 07:19] LABS: BLOOD UREA NITROGEN 17 mg/dL (9-20); CALCIUM 9.4 mg/dl (8.6-10.4); GFR NON-AFRICAN AMERICAN 54
[2018-08-14] MEDS: Carbidopa/Levodopa 25/100 CR PO SCH ×3 (10:14→19:10)
--- NOTE | 2018-08-14 10:29 | CP.PCM.PN ---
Subjective - Date & Time of Evaluation Date of Evaluation: 08/14/18 Time of Evaluation: 10:29 - Subjective Subjective: No new compliants chronic LE edema Objective - Vital Signs/Intake and Output Vital Signs (last 24 hours): Temp Pulse Resp BP Pulse Ox 97.8 F 79 20 123/71 99 08/14/18 07:25 08/14/18 08:10 08/14/18 07:25 08/14/18 10:14 08/14/18 07:25 Intake and Output: 08/14/18 08/14/18 06:59 18:59 Intake Total 708.4 Output Total 800 Balance -91.6 - Medications Medications: Current Medications Acetaminophen (Tylenol 325mg Tab) 650 mg PO Q6 PRN PRN Reason: Pain, moderate (4-7) Aspirin (Aspirin Chewable) 81 mg PO DAILY [facility] Last Admin: 08/14/18 10:10 Dose: 81 mg Carbidopa/Levodopa (Sinemet Cr) 1 tab PO TID [facility] Last Admin: 08/14/18 10:14 Dose: 1 tab Cyproheptadine HCl (Periactin) 4 mg PO HS [facility] Last Admin: 08/13/18 21:29 Dose: 4 mg Docusate Sodium (Colace) 100 mg PO BID [facility] Last Admin: 08/14/18 10:06 Dose: 100 mg Folic Acid (Folic Acid) 1 mg PO DAILY [facility] Last Admin: 08/14/18 10:10 Dose: 1 mg Furosemide (Lasix) 40 mg PO DAILY [facility] Last Admin: 08/14/18 10:14 Dose: 40 mg Gabapentin (Neurontin) 300 mg PO BID [facility] Last Admin: 08/14/18 10:10 Dose: 300 mg Heparin Sodium/Sodium Chloride (Heparin 75356 Units/250ml 1/2 Normal Saline) 25,000 units in 250 mls @ 9.798 mls/hr IV .Q24H PRN; Protocol PRN Reason: ADJUST RATE PER PROTOCOL Last Admin: 08/14/18 00:48 Dose: 12 units/kg/hr, 9.798 mls/hr Metoprolol Tartrate (Lopressor) 12.5 mg PO BIDCC [facility] Last Admin: 08/14/18 07:56 Dose: 12.5 mg Pramipexole Dihydrochloride (Mirapex) 0.25 mg PO TID [facility] Last Admin: 08/14/18 10:13 Dose: 0.25 mg Rosuvastatin Calcium (Crestor) 10 mg PO HS [facility] Last Admin: 08/13/18 21:32 Dose: 10 mg - Labs Labs: 08/14/18 06:31 08/14/18 06:31 PT 12.5 SECONDS (9.7-12.2) H 08/14/18 06:31 INR 1.1 08/14/18 06:31 APTT 107 SECONDS (21-34) H* D 08/14/18 06:31 - Constitutional Appears: No Acute Distress - Eye Exam Eye Exam: Normal appearance - ENT Exam ENT Exam: Mucous Membranes Moist - Neck Exam Neck Exam: Normal Inspection - Respiratory Exam Respiratory Exam: Clear to Ausculation Bilateral - Cardiovascular Exam Cardiovascular Exam: REGULAR RHYTHM, +S1, +S2. absent: Murmur - GI/Abdominal Exam GI & Abdominal Exam: Soft. 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 I suggest conservative management Plan: serial troponin 1.2 > 1 > 0.9 cont ASA, plavix and statin re-eval bleeding risk on dual antiplatelets f/u with a repeat echo SHOWS NORMAL LV SYSTOLIC FUNCTION NO REGIONAL WALL MOTION ABNORMALITIES; FILLING PRESSURES NOT EVALUATED. add ranexa 500 BID LEG edema > patient has had DVT in past, s/p IVCF > also with hx of PE in past: recent V/Q low probability > LE doppler suggests acute B/L LE DVT: He has an IVCF > agree with interim heparin use: fall risk....will need to weigh R&B if AC going to be used chronically > LE edema with clear lungs and no JVD may be related to chronic venous insufficiency > low dose lasix, leg elevation No additional cardiac w/u planned Will sign off : call if questions
--- NOTE | 2018-08-14 11:44 | CP.PCM.PN ---
Subjective - Date & Time of Evaluation Date of Evaluation: 08/14/18 - Subjective Subjective: patient seen and examined today no nausea, no vomiting, no diarrhea, no dizziness, no fever, no sob Objective - Vital Signs/Intake and Output Vital Signs (last 24 hours): Temp Pulse Resp BP Pulse Ox 97.8 F 79 20 123/71 99 08/14/18 07:25 08/14/18 08:10 08/14/18 07:25 08/14/18 10:14 08/14/18 07:25 Intake and Output: 08/14/18 08/14/18 06:59 18:59 Intake Total 708.4 Output Total 800 Balance -91.6 - Medications Medications: Current Medications Acetaminophen (Tylenol 325mg Tab) 650 mg PO Q6 PRN PRN Reason: Pain, moderate (4-7) Aspirin (Aspirin Chewable) 81 mg PO DAILY [facility] Last Admin: 08/14/18 10:10 Dose: 81 mg Carbidopa/Levodopa (Sinemet Cr) 1 tab PO TID [facility] Last Admin: 08/14/18 10:14 Dose: 1 tab Cyproheptadine HCl (Periactin) 4 mg PO HS [facility] Last Admin: 08/13/18 21:29 Dose: 4 mg Docusate Sodium (Colace) 100 mg PO BID [facility] Last Admin: 08/14/18 10:06 Dose: 100 mg Folic Acid (Folic Acid) 1 mg PO DAILY [facility] Last Admin: 08/14/18 10:10 Dose: 1 mg Furosemide (Lasix) 40 mg PO DAILY [facility] Last Admin: 08/14/18 10:14 Dose: 40 mg Gabapentin (Neurontin) 300 mg PO BID [facility] Last Admin: 08/14/18 10:10 Dose: 300 mg Heparin Sodium/Sodium Chloride (Heparin 38415 Units/250ml 1/2 Normal Saline) 2 5,000 units in 250 mls @ 9.798 mls/hr IV .Q24H PRN; Protocol PRN Reason: ADJUST RATE PER PROTOCOL Last Admin: 08/14/18 00:48 Dose: 12 units/kg/hr, 9.798 mls/hr Metoprolol [facility]art[facility] ([facility]) [facility] Last Admin: 08/14/18 07:56 Dose: 12.5 mg Pramipexole Dihydrochloride (Mirapex) 0.25 mg PO TID [facility] Last Admin: 08/14/18 10:13 Dose: 0.25 mg Rosuvastatin Calcium (Crestor) 10 mg PO HS [facility] Last Admin: 08/13/18 21:32 Dose: 10 mg - Labs Labs: 08/14/18 06:31 08/14/18 06:31 PT 12.5 SECONDS (9.7-12.2) H 08/14/18 06:31 INR 1.1 08/14/18 06:31 APTT 107 SECONDS (21-34) H* D 08/14/18 06:31 - Constitutional Appears: Well - Head Exam Head Exam: ATRAUMATIC, NORMAL INSPECTION, NORMOCEPHALIC - Eye Exam Eye Exam: EOMI, Normal appearance, PERRL Pupil Exam: NORMAL ACCOMODATION, PERRL - ENT Exam ENT Exam: Mucous Membranes Moist, Normal Exam - Neck Exam Neck Exam: Full ROM, Normal Inspection. absent: Lymphadenopathy - Respiratory Exam Respiratory Exam: Decreased Breath Sounds - Cardiovascular Exam Cardiovascular Exam: REGULAR RHYTHM, +S1, +S2 - GI/Abdominal Exam GI & Abdominal Exam: Soft, Diminished Bowel Sounds - Rectal Exam Rectal Exam: Deferred - Neurological Exam Neurological Exam: Oriented x3 Assessment and Plan - Assessment and Plan (Free Text) Plan: vitals reviewed labs reviewed medications reviewed asprin chewable colace coumadin colace crestor folic acid heparin lasix miralax neurontin periactin sinemet cr tylenol
--- NOTE | 2018-08-14 13:59 | CARD ---
APPROVED REPORT Date of service: 08/13/2018 EXAM: LIMITED Two-dimensional and M-mode echocardiogram with Doppler and color Doppler. Other Information Quality : GoodRhythm : INDICATION New clinical change LV/RV function 2D DIMENSIONS IVSd1.4 (0.7-1.1cm)LVDd4.2 (3.9-5.9cm) PWd1.5 (0.7-1.1cm)LVDs2.4 (2.5-4.0cm) FS (%) 42.8 %LVEF (%)74.3 (>50%) LVEF (West's)65.26 % Mitral Valve E/A ratio0.0 TDI E/Lateral E'0.0E/Medial E'0.0 Tricuspid Valve TR Peak [id number] Peak [id number] <Conclusion> Limited study Left ventricle: thickness: normal; size: normal; overall ejection fraction: 55%: diastolic filling pressures: indeterminate Mitral valve: annulus: normal: leaflets: normal: excursion: normal; indeterminate trans-mitral gradient: left atrium: normal Aortic valve: leaflets: normal: excursion: normal; indeterminatetrans-aortic gradient:aortic root: normal Intra-cardiac hemodynamics: indeeterminate No pericardial effusion
--- NOTE | 2018-08-14 19:20 | PN ---
DATE: 08/14/2018 SUBJECTIVE: The patient denies chest pain or leg pain. PHYSICAL EXAMINATION: VITAL SIGNS: Blood pressure 123/71, heart rate 79, temperature 97.8, respirations 20. HEENT: Normocephalic. CHEST: Clear. HEART: S1 and S2, regular. EXTREMITIES: 1+ pitting edema bilaterally, but no calf tenderness. LABORATORY DATA: Today's hemoglobin and hematocrit are 11.6 and 36.5, white count 4.5, platelet count 173,000. Today's INR is 1.1, and PTT, the latest one was 107. Today's SMA-7 was entirely within normal limits. ASSESSMENT: 1. Bilateral deep vein thrombosis with presumptive pulmonary embolism. 2. Improved renal insufficiency. 3. Parkinsonism. RECOMMENDATIONS: Continue current intravenous heparin, therapeutic regimen. Continue aspirin 81 mg once a day, Lasix 20 mg p.o. once a day, Lopressor 12.5 mg once a day, Sinemet at one tablet t.i.d. I will start Coumadin 7.5 mg orally today and obtain INR in the a.m. Shilo Yanez MD
[2018-08-15 07:37] LABS: HEMOGLOBIN 12.2 g/dL (12.0-18.0); MEAN CELL VOLUME 90.3 fL (80.0-94.0); MEAN CORPUSCULAR HEMOGLOBIN 29.4 pg (27.0-31.0); MEAN CORPUSCULAR HGB CONC 32.5 g/dL (33.0-37.0); MEAN PLATELET VOLUME 9.7 fL (7.2-11.7); RBC 4.15 Mil/uL (4.40-5.90); WHITE BLOOD COUNT 3.8 K/uL (4.8-10.8)
[2018-08-15 07:53] LABS: INR 1.2; PROTHROMBIN TIME 12.8 SECONDS (9.7-12.2)
[2018-08-15 07:56] LABS: BLOOD UREA NITROGEN 18 mg/dL (9-20); CALCIUM 9.1 mg/dl (8.6-10.4); GFR NON-AFRICAN AMERICAN 54
[2018-08-15] MEDS: Carbidopa/Levodopa 25/100 CR PO SCH ×3 (10:12→18:12)
[2018-08-15] MEDS: Heparin25000 units/250ml 1/2NS 25,000 UNITS/250 ML BAG IV PRN (13:41)
--- NOTE | 2018-08-15 17:58 | CP.PCM.PN ---
Subjective - Date & Time of Evaluation Date of Evaluation: 08/15/18 - Subjective Subjective: patient seen and examined today at bedside no nausea no vomiting no dizziness no fever no shortness of breath no diarrhea Objective - Vital Signs/Intake and Output Vital Signs (last 24 hours): Temp Pulse Resp BP Pulse Ox 97.9 F 86 20 133/77 98 08/15/18 16:00 08/15/18 16:00 08/15/18 16:00 08/15/18 16:00 08/15/18 16:00 Intake and Output: 08/15/18 08/15/18 06:59 18:59 Intake Total 298.4 250 Output Total 350 Balance -51.6 250 - Medications Medications: Current Medications Acetaminophen (Tylenol 325mg Tab) 650 mg PO Q6 PRN PRN Reason: Pain, moderate (4-7) Aspirin (Aspirin Chewable) 81 mg PO DAILY [facility] Last Admin: 08/15/18 10:13 Dose: 81 mg Carbidopa/Levodopa (Sinemet Cr) 1 tab PO TID [facility] Last Admin: 08/15/18 13:46 Dose: 1 tab Cyproheptadine HCl (Periactin) 4 mg PO HS [facility] Last Admin: 08/14/18 23:29 Dose: 4 mg Docusate Sodium (Colace) 100 mg PO BID [facility] Last Admin: 08/15/18 10:12 Dose: 100 mg Folic Acid (Folic Acid) 1 mg PO DAILY [facility] Last Admin: 08/15/18 10:12 Dose: 1 mg Furosemide (Lasix) 40 mg PO DAILY [facility] Last Admin: 08/15/18 10:13 Dose: 40 mg Gabapentin (Neurontin) 300 mg PO BID [facility] Last Admin: 08/15/18 10:12 Dose: 300 mg Heparin Sodium/Sodium Chloride (Heparin 24192 Units/250ml 1/2 Normal Saline) 25,000 units in 250 mls @ 9.798 mls/hr IV .Q24H PRN; Protocol PRN Reason: ADJUST RATE PER PROTOCOL Last Admin: 08/15/18 13:41 Dose: 9 units/kg/hr, 7.348 mls/hr [facility] Admin: 08/15/18 08:18 Dose: 12.5 mg Pramipexole Dihydrochloride (Mirapex) 0.25 mg PO TID [facility] Last Admin: 08/15/18 13:46 Dose: 0.25 mg Rosuvastatin Calcium (Crestor) 10 mg PO HS [facility] Last Admin: 08/14/18 23:29 Dose: 10 mg Warfarin Sodium (Coumadin) 10 mg PO 1800 [facility] Stop: 08/15/18 18:01 - Labs Labs: 08/15/18 07:33 08/15/18 07:33 PT 12.8 SECONDS (9.7-12.2) H 08/15/18 07:33 INR 1.2 08/15/18 07:33 APTT 65 SECONDS (21-34) H D 08/15/18 07:33 - Constitutional Appears: Well - Head Exam Head Exam: ATRAUMATIC, NORMAL INSPECTION, NORMOCEPHALIC - Eye Exam Eye Exam: EOMI, Normal appearance, PERRL Pupil Exam: NORMAL ACCOMODATION, PERRL - ENT Exam ENT Exam: Mucous Membranes Moist, Normal Exam - Neck Exam Neck Exam: Full ROM, Normal Inspection. absent: Lymphadenopathy - Respiratory Exam Respiratory Exam: Decreased Breath Sounds - Cardiovascular Exam Cardiovascular Exam: REGULAR RHYTHM, +S1, +S2 - GI/Abdominal Exam GI & Abdominal Exam: Soft, Diminished Bowel Sounds - Rectal Exam Rectal Exam: Deferred - Neurological Exam Neurological Exam: Oriented x3 Assessment and Plan - Assessment and Plan (Free Text) Plan: medications reviewed labs reviewed vitals reviewed aspirin chewable colace crestor folic acid heparin lasix lopressor mirapex neurontin periactin sinemet cr tylenol
--- NOTE | 2018-08-15 19:18 | PN ---
DATE: 08/15/2018 SUBJECTIVE: The patient denied any chest pain or leg pain. PHYSICAL EXAMINATION: VITAL SIGNS: Blood pressure 124/75, heart rate 82, temperature 98.6, respirations 20. HEENT: Normocephalic. CHEST: Diminished breath sounds over the bases. HEART: S1 and S2, regular. ABDOMEN: Soft. EXTREMITIES: 2+ pitting edema. LABORATORY DATA: Hemoglobin and hematocrit 12.1 and 37.5, white count 3.8, platelet count 184,000. Today's SMA-7 is within normal limits, except for carbon dioxide of 31 and anion gap of 9. The latest PTT 65, INR is 1.2. ASSESSMENT: 1. Bilateral acute deep vein thrombosis. 2. Borderline troponin elevation, likely due to pulmonary infarcts. 3. Parkinsonism. RECOMMENDATIONS: Continue aspirin 81 mg once a day, Crestor 10 mg once a day, intravenous heparin therapeutic regimen, Lasix 40 mg p.o. once a day, Lopressor 12.5 mg twice a day, Sinemet one tablet three times daily. I will administer Coumadin 10 mg p.o. today. Shilo Yanez MD
[2018-08-16 07:24] LABS: BASO # 0.1 K/uL (0.0-0.2); BASO % 1.3 % (0.0-2.0); EOS # 0.5 K/uL (0.0-0.7); HEMOGLOBIN 11.5 g/dL (12.0-18.0); LYMPH # 1.6 K/uL (1.0-4.3); LYMPH % 38.5 % (20.0-40.0); MEAN CELL VOLUME 89.8 fL (80.0-94.0); MEAN CORPUSCULAR HEMOGLOBIN 29.4 pg (27.0-31.0); MEAN CORPUSCULAR HGB CONC 32.7 g/dL (33.0-37.0); MEAN PLATELET VOLUME 10.1 fL (7.2-11.7); MONO # 0.5 K/uL (0.0-0.8); MONO % 13.2 % (0.0-10.0); NEUT # 1.4 K/uL (1.8-7.0); NRBC % 0.3 % (0.0-2.0); RBC 3.91 Mil/uL (4.40-5.90); RED CELL DISTRIBUTION WIDTH 18.1 % (11.5-14.5)
[2018-08-16 07:37] LABS: INR 1.5; PROTHROMBIN TIME 16.5 SECONDS (9.7-12.2)
[2018-08-16] MEDS: Carbidopa/Levodopa 25/100 CR PO SCH ×3 (09:05→17:40)
--- NOTE | 2018-08-16 17:25 | PN ---
DATE: 08/16/2018 SUBJECTIVE: The patient denies any chest pain and does not appear to be in any distress. He denies any leg pain. PHYSICAL EXAMINATION: VITAL SIGNS: Blood pressure 114/68, heart rate 81, temperature 98.4, respirations 20. HEENT: Normocephalic. CHEST: Clear. HEART: S1 and S2, regular. EXTREMITIES: 1+ pitting edema. LABORATORY DATA: Today's hemoglobin and hematocrit are 11.5 and 35.1, white count 4, platelet count 173,000. Today's INR is 1.5. Today's PTT is 58, on intravenous heparin infusion. ASSESSMENT: 1. Bilateral deep venous thromboses. 2. Borderline troponin elevation, most likely related to pulmonary infarcts. 3. Parkinsonism. 4. Mild anemia. RECOMMENDATIONS: 1. Continue current therapeutic intravenous heparin regimen for DVT/PE protocol. 2. Continue aspirin 81 mg once a day, Lopressor 12.5 mg twice a day, Sinemet 1 tablet t.i.d. I ordered Coumadin 7.5 mg today. Shilo Yanez MD
--- NOTE | 2018-08-16 19:23 | CP.PCM.PN ---
Subjective - Date & Time of Evaluation Date of Evaluation: 08/16/18 - Subjective Subjective: patient seen and examined at bedside no nausea no vomitng no dizziness no diarrhea no fever no shortness of breath Objective - Vital Signs/Intake and Output Vital Signs (last 24 hours): Temp Pulse Resp BP Pulse Ox 99.0 F 86 20 122/73 98 08/16/18 15:00 08/16/18 15:00 08/16/18 15:00 08/16/18 15:00 08/16/18 15:00 - Medications Medications: Current Medications Acetaminophen (Tylenol 325mg Tab) 650 mg PO Q6 PRN PRN Reason: Pain, moderate (4-7) Aspirin (Aspirin Chewable) 81 mg PO DAILY [facility] Last Admin: 08/16/18 09:04 Dose: 81 mg Carbidopa/Levodopa (Sinemet Cr) 1 tab PO TID [facility] Last Admin: 08/16/18 13:36 Dose: 1 tab Cyproheptadine HCl (Periactin) 4 mg PO HS [facility] Last Admin: 08/15/18 21:35 Dose: 4 mg Docusate Sodium (Colace) 100 mg PO BID [facility] Last Admin: 08/16/18 17:40 Dose: 100 mg Folic Acid (Folic Acid) 1 mg PO DAILY [facility] Last Admin: 08/16/18 09:05 Dose: 1 mg Furosemide (Lasix) 40 mg PO DAILY [facility] Last Admin: 08/16/18 09:05 Dose: 40 mg Gabapentin (Neurontin) 300 mg PO BID [facility] Last Admin: 08/16/18 17:39 Dose: 300 mg Heparin Sodium/Sodium Chloride (Heparin 80974 Units/250ml 1/2 Normal Saline) 25,000 units in 250 mls @ 9.798 mls/hr IV .Q24H PRN; Protocol PRN Reason: ADJUST RATE PER PROTOCOL Last Admin: 08/15/18 13:41 Dose: 9 units/kg/hr, 7.348 mls/hr Metoprolol [facility]art[facility] ([facility] Last Admin: 08/16/18 17:46 Dose: 12.5 mg Pramipexole Dihydrochloride (Mirapex) 0.25 mg PO TID [facility] Last Admin: 08/16/18 17:40 Dose: 0.25 mg Rosuvastatin Calcium (Crestor) 10 mg PO HS [facility] Last Admin: 08/15/18 21:35 Dose: 10 mg - Labs Labs: 08/16/18 07:02 08/15/18 07:33 PT 16.5 SECONDS (9.7-12.2) H 08/16/18 07:02 INR 1.5 08/16/18 07:02 APTT 58 SECONDS (21-34) H D 08/16/18 07:02 - Constitutional Appears: Well - Head Exam Head Exam: ATRAUMATIC, NORMAL INSPECTION, NORMOCEPHALIC - Eye Exam Eye Exam: EOMI, Normal appearance, PERRL Pupil Exam: NORMAL ACCOMODATION, PERRL - ENT Exam ENT Exam: Mucous Membranes Moist, Normal Exam - Neck Exam Neck Exam: Full ROM, Normal Inspection. absent: Lymphadenopathy - Respiratory Exam Respiratory Exam: Decreased Breath Sounds - Cardiovascular Exam Cardiovascular Exam: REGULAR RHYTHM, +S1, +S2 - GI/Abdominal Exam GI & Abdominal Exam: Soft, Diminished Bowel Sounds - Rectal Exam Rectal Exam: Deferred - Neurological Exam Neurological Exam: Oriented x3 Assessment and Plan - Assessment and Plan (Free Text) Plan: medications reviewed labs reviewed vitals reviewed
[2018-08-17] MEDS: Heparin25000 units/250ml 1/2NS 25,000 UNITS/250 ML BAG IV PRN (01:26)
[2018-08-17 09:01] LABS: BASO # 0.1 K/uL (0.0-0.2); BASO % 1.6 % (0.0-2.0); EOS # 0.4 K/uL (0.0-0.7); EOS % 9.3 % (0.0-4.0); HEMOGLOBIN 11.9 g/dL (12.0-18.0); LYMPH # 1.2 K/uL (1.0-4.3); LYMPH % 28.2 % (20.0-40.0); MEAN CELL VOLUME 90.2 fL (80.0-94.0); MEAN CORPUSCULAR HEMOGLOBIN 29.5 pg (27.0-31.0); MEAN CORPUSCULAR HGB CONC 32.7 g/dL (33.0-37.0); MEAN PLATELET VOLUME 9.6 fL (7.2-11.7); MONO # 0.5 K/uL (0.0-0.8); MONO % 10.5 % (0.0-10.0); NEUT # 2.2 K/uL (1.8-7.0); NEUT % 50.4 % (50.0-75.0); NRBC % 0.2 % (0.0-2.0); RBC 4.04 Mil/uL (4.40-5.90); RED CELL DISTRIBUTION WIDTH 18.1 % (11.5-14.5); WHITE BLOOD COUNT 4.4 K/uL (4.8-10.8)
[2018-08-17 09:21] LABS: INR 2.7; PROTHROMBIN TIME 29.2 SECONDS (9.7-12.2)
[2018-08-17] MEDS: Carbidopa/Levodopa 25/100 CR PO SCH ×3 (09:47→17:44)
--- NOTE | 2018-08-17 16:01 | CP.PCM.PN ---
Subjective - Date & Time of Evaluation Date of Evaluation: 08/17/18 - Subjective Subjective: patient seen and examined today no fever no shortness of breath no nausea no vomiting no dizziness no diarrhea Objective - Vital Signs/Intake and Output Vital Signs (last 24 hours): Temp Pulse Resp BP Pulse Ox 98.1 F 92 H 20 137/81 98 08/17/18 08:28 08/17/18 08:28 08/17/18 08:28 08/17/18 09:48 08/17/18 08:28 Intake and Output: 08/17/18 08/17/18 06:59 18:59 Intake Total 250 Balance 250 - Medications Medications: Current Medications Acetaminophen (Tylenol 325mg Tab) 650 mg PO Q6 PRN PRN Reason: Pain, moderate (4-7) Aspirin (Aspirin Chewable) 81 mg PO DAILY [facility] Last Admin: 08/17/18 09:48 Dose: 81 mg Carbidopa/Levodopa (Sinemet Cr) 1 tab PO TID [facility] Last Admin: 08/17/18 13:17 Dose: 1 tab Cyproheptadine HCl (Periactin) [address] [facility] Last Admin: 08/16/18 21:13 Dose: 4 mg Docusate Sodium (Colace) 100 mg PO BID [facility] Last Admin: 08/17/18 09:47 Dose: 100 mg Folic Acid (Folic Acid) 1 mg PO DAILY [facility] Last Admin: 08/17/18 09:47 Dose: 1 mg Furosemide (Lasix) 40 mg PO DAILY [facility] Last Admin: 08/17/18 09:48 Dose: 40 mg Gabapentin (Neurontin) 300 mg PO BID [facility] Last Admin: 08/17/18 09:47 Dose: 300 mg [facility]ol [facility] Last Admin: 08/17/18 09:47 Dose: 12.5 mg Pramipexole Dihydrochloride (Mirapex) 0.25 mg PO TID [facility] Last Admin: 08/17/18 13:17 Dose: 0.25 mg Rosuvastatin Calcium (Crestor) 10 mg PO HS [facility] Last Admin: 08/16/18 21:13 Dose: 10 mg - Labs Labs: 08/17/18 08:52 08/15/18 07:33 PT 29.2 SECONDS (9.7-12.2) H D 08/17/18 08:52 INR 2.7 D 08/17/18 08:52 APTT 91 SECONDS (21-34) H D 08/17/18 08:52 - Constitutional Appears: Well - Head Exam Head Exam: ATRAUMATIC, NORMAL INSPECTION, NORMOCEPHALIC - Eye Exam Eye Exam: EOMI, Normal appearance, PERRL Pupil Exam: NORMAL ACCOMODATION, PERRL - ENT Exam ENT Exam: Mucous Membranes Moist, Normal Exam - Neck Exam Neck Exam: Full ROM, Normal Inspection. absent: Lymphadenopathy - Respiratory Exam Respiratory Exam: Decreased Breath Sounds - Cardiovascular Exam Cardiovascular Exam: REGULAR RHYTHM, +S1, +S2 - GI/Abdominal Exam GI & Abdominal Exam: Soft, Diminished Bowel Sounds - Rectal Exam Rectal Exam: Deferred - Neurological Exam Neurological Exam: Oriented x3 Assessment and Plan - Assessment and Plan (Free Text) Plan: labs reviewed vitals reviewed medications reviewed
--- NOTE | 2018-08-18 00:05 | PN ---
DATE: 08/17/2018 SUBJECTIVE: The patient denied any chest pain or shortness of breath. PHYSICAL EXAMINATION: VITAL SIGNS: Blood pressure 137/81, heart rate 92, temperature 98.1, respirations 20. HEENT: Normocephalic. CHEST: Clear. HEART: Sounds regular. EXTREMITIES: 2+ pitting edema. LABORATORY DATA: Today's INR is 2.7. Today's PTT 91. Hemoglobin and hematocrit 11.9 and 36.4. White count 4.4, platelet count 180,000. ASSESSMENT: 1. Bilateral acute deep venous thrombosis with possible pulmonary embolization. 2. Parkinsonism. 3. Mild anemia. RECOMMENDATIONS: Discontinue intravenous heparin. I will hold on any further Coumadin until INR is obtained in a.m. Continue Lopressor at 12.5 mg twice a day, Crestor 10 mg once a day, aspirin 81 mg once a day. Shilo Yanez MD
[2018-08-18 08:07] LABS: BASO # 0.1 K/uL (0.0-0.2); BASO % 1.2 % (0.0-2.0); EOS # 0.4 K/uL (0.0-0.7); HEMOGLOBIN 12.7 g/dL (12.0-18.0); LYMPH % 36.7 % (20.0-40.0); MEAN CELL VOLUME 90.7 fL (80.0-94.0); MEAN CORPUSCULAR HEMOGLOBIN 29.4 pg (27.0-31.0); MEAN CORPUSCULAR HGB CONC 32.4 g/dL (33.0-37.0); MEAN PLATELET VOLUME 10.1 fL (7.2-11.7); MONO # 0.7 K/uL (0.0-0.8); MONO % 12.4 % (0.0-10.0); NEUT # 2.3 K/uL (1.8-7.0); NEUT % 41.7 % (50.0-75.0); NRBC % 0.2 % (0.0-2.0); RBC 4.32 Mil/uL (4.40-5.90); RED CELL DISTRIBUTION WIDTH 18.2 % (11.5-14.5); WHITE BLOOD COUNT 5.5 K/uL (4.8-10.8)
[2018-08-18 08:16] LABS: INR 2.7; PROTHROMBIN TIME 29.1 SECONDS (9.7-12.2)
[2018-08-18] MEDS: Carbidopa/Levodopa 25/100 CR PO SCH ×3 (10:19→18:01)
--- NOTE | 2018-08-18 23:11 | PN ---
DATE: 08/18/2018 FOLLOWUP SUBJECTIVE: The patient denies any chest pain. He does not appear to be in any distress. PHYSICAL EXAMINATION: VITAL SIGNS: Blood pressure 105/63, heart rate 81, temperature 98.2, respirations 20. HEENT: Normocephalic. CHEST: Clear. HEART: S1 and S2, regular. EXTREMITIES: 2+ pitting edema. LABORATORY DATA: Today's hemoglobin and hematocrit 12.7 and 39.2, white count and platelet count are within normal limit. SMA-7 within normal limit except for carbon dioxide of 31 and anion gap of 9. Today's INR is 2.7 and PTT 40. ASSESSMENT: 1. Bilateral acute lower extremity deep venous thrombosis. 2. Borderline troponin elevation, consider pulmonary infarcts. 3. Parkinsonism. 4. Mild anemia. RECOMMENDATIONS: Continue aspirin 81 mg once a day, Colace 100 mg twice a day, Lasix 40 mg once a day, Lopressor 12.5 mg twice a day, Sinemet one tablet t.i.d. I ordered Coumadin 5 mg to be given today. Shilo Yanez MD
[2018-08-19 04:47] VITALS: RESP 20
[2018-08-19 06:54] LABS: INR 2.4; PROTHROMBIN TIME 26.3 SECONDS (9.7-12.2)
[2018-08-19] MEDS: Carbidopa/Levodopa 25/100 CR PO SCH ×3 (10:27→17:16)
--- NOTE | 2018-08-19 18:53 | PN ---
DATE: 08/19/2018 SUBJECTIVE: The patient denies any abdominal pain or leg pain. PHYSICAL EXAMINATION: VITAL SIGNS: Blood pressure 120/70, heart rate 84, temperature 97.2, and respirations 20. HEENT: Normocephalic. CHEST: Clear. HEART: S1 and S2. Regular. ABDOMEN: Soft. EXTREMITIES: 1 to 2+ edema. LABORATORY DATA: Today's INR is 2.4 and PTT 26.3. ASSESSMENT: 1. Acute bilateral deep vein thrombosis. The patient has a history of inferior vena cava filter placement. 2. Consider small pulmonary infarcts. The patient's troponin was borderline elevated. 3. Parkinsonism. 4. History of falls in the past. RECOMMENDATIONS: Continue aspirin 81 mg once a day, Crestor 10 mg once a day, Lasix 40 mg p.o. once a day, Lopressor 12.5 mg twice a day. We will order Coumadin 7.5 mg orally today. Shilo Yanez MD
--- NOTE | 2018-08-19 20:14 | PN ---
DATE: 08/18/2018 SUBJECTIVE: The patient was admitted under Dr. Dionna Louis while I was in vacation. Today, I come back, so I take over the patient's care. This patient was admitted after she sustained a fall. The patient also was noted to have swelling of both lower extremities, and the patient was found to have DVT, so the patient was admitted and was found to have acute thrombus. was done. The patient was put on heparin. Today, the INR is 2.7. The patient was seen this evening and was still complaining of unsteady gait and also some swelling of the lower extremities. Also, the patient was complaining of some tremor of the upper extremities. PHYSICAL EXAMINATION: VITAL SIGNS: The patient has a blood pressure of 105/63, pulse 81, respirations 20, temperature 98.2. HEENT: Head is normocephalic. NECK: Supple. LUNGS: Clear. HEART: Regular rate and rhythm. ABDOMEN: Soft and mildly obese. EXTREMITIES: There is a +1 to +2 pitting edema on both lower extremities, left more than right. LABORATORY DATA: The patient has some tests done. Today, the PT is 29.1, INR is 2.7, and PTT is 40. Also, the hematology shows WBC is 5.5, hemoglobin 12.7, hematocrit 39.2, and platelets of 206. Chemistry: Sodium 135, potassium 4.1, chloride 100, BUN 18, creatinine 1.3, glucose was 84, and calcium 9.1. ASSESSMENT AND PLAN: As I mentioned that now, the patient is on blood thinner but in view of the tendency to fall and also a need of anticoagulant and the patient has a history of pulmonary embolism in the past, we are going to consider subacute rehabilitation. We are going to discuss that with licensed social worker and case management for possible subacute rehabilitation. Stu Elizabeth MD
--- NOTE | 2018-08-19 23:55 | PN ---
DATE: 08/19/2018 SUBJECTIVE: The patient was seen early this morning, alert and awake, denies any chest pain or abdominal pain, but the patient admits feeling unsteady on his feet with tendency to fall. The patient is feeling that he yet to hold on to the wall or a support in order to go to the bathroom, which is about 5 to 10 feet away. PHYSICAL EXAMINATION: VITAL SIGNS: Blood pressure is 101/61, pulse is 91, respiration is 20, temperature is 98.7. HEENT: The head is normocephalic. NECK: Supple. No JVD. LUNGS: Clear. HEART: Regular rate and rhythm, positive murmur, positive extra systole noted. ABDOMEN: Soft, nontender. No palpable mass. EXTREMITIES: Swelling of both lower extremities with tenderness to the calf in both legs. NEUROLOGIC: The patient has unsteady gait and tremor of the upper extremities. LABORATORY DATA: The patient today has a coag, PT/INR 26.3, INR is 2.4. Chemistry was done in 08/15/2018. PLAN: The plan is that we are going to continue the patient on Coumadin because of the acute DVT but my recommendation is to send the patient to subacute rehab because the patient is very unsteady on his feet and also with possibility of falling. The patient is being on a blood thinner, which could be dangerous. So, I have asked the case investigator to review the patient's case and to consider subacute rehab. Stu Elizabeth MD
[2018-08-20 08:21] LABS: INR 2.7; PROTHROMBIN TIME 29.6 SECONDS (9.7-12.2)
[2018-08-20] MEDS: Carbidopa/Levodopa 25/100 CR PO SCH ×4 (09:01→17:48)
[2018-08-20 17:02] VITALS: TEMP 98.4; O2SAT 98
[2018-08-20 17:27] VITALS: BP 134/68; PULSE 111
--- NOTE | 2018-08-20 23:11 | PN ---
DATE: 08/20/2018 SUBJECTIVE: The patient denies any chest pain, abdominal pain or leg pain. He does not appear to be in any distress. PHYSICAL EXAMINATION: VITAL SIGNS: Blood pressure 121/70, heart rate 86, temperature 98.3, respirations 20. HEENT: Normocephalic. CHEST: Clear. HEART: S1 and S2, regular. EXTREMITIES: 1+ pitting edema. LABORATORY DATA: Today's INR is 2.7. ASSESSMENT: 1. Acute bilateral deep vein thrombosis. 2. Parkinsonism. 3. Hypertension. RECOMMENDATIONS: Continue aspirin 81 mg once a day, Crestor 10 mg once a day, Lasix 20 mg once a day, Lopressor 12.5 mg twice a day, Sinemet one tablet daily. The patient will receive Coumadin 4 mg orally today. Shilo Yanez MD
--- NOTE | 2018-08-21 00:41 | PN ---
DATE: 08/20/2018 SUBJECTIVE: Today, the patient is alert and awake, and is complaining of generalized weakness. Denied any chest pain or palpitation, but has been having some tremor on and off in the upper extremities. PHYSICAL EXAMINATION: VITAL SIGNS: The patient has blood pressure of 134/68, pulse is 82, respirations 20, and temperature 98.4. NECK: Supple. LUNGS: Clear. HEART: Regular rate and rhythm. ABDOMEN: Soft. No tenderness. Positive bowel sounds. No palpable mass. EXTREMITIES: There is no edema in the upper extremity, but there is swelling of both lower extremities and tenderness to the calves. NEUROLOGIC: The patient has a tremor on and off to the upper extremity and has unsteady gait. The patient is not able to move with difficulty of walking straight and the patient is holding the wall while walking. PLAN: Refer the patient to subacute to help maintain the balance. The case was discussed with Wendy Cheatham, the nurse practitioner. Stu Elizabeth MD
--- NOTE | 2018-08-21 21:01 | DS ---
HISTORY OF PRESENT ILLNESS: This patient is a 72-year-old male with history of Parkinson's disease and hypertension and history of DVT and also PE in the past, also the patient had rib fracture from falling. HOSPITAL COURSE: The patient came to the emergency room because the patient sustained a fall at home and it was found that the patient has swelling of the lower extremity. The patient was found to have acute the patient was put on heparin and also written order for Coumadin. The physical examination showed that the patient was extremity and unsteady gait with tendency to fall. So, the patient was evaluated by Physical Therapy and consideration for subacute rehab was suggested. The patient today has an INR of 2.7. Chemistry does show that sodium was 135 on 08/15/2018. DISCHARGE PLAN: So, the patient then will be transferred to Subacute Rehab today and we will continue to follow this patient at the [facility]. Stu Elizabeth MD
== END 2018-08-20 18:10 | DRG 299 ==
LOC: C.ER 19:35 → C.6T 23:28 → OBSVTOIN 08-11 16:04 → C.6T 08-12 19:12
PROVIDERS: ADMIT Specialist; ATTEND Specialist
DX: I82.413 Acute embolism and thrombosis of femoral vein, bilateral (principal); I26.99 Other pulmonary embolism without acute cor pulmonale; I82.403 Acute embolism and thrombosis of unspecified deep veins of lower extremity, bilateral; I48.91 Unspecified atrial fibrillation; R29.6 Repeated falls; I12.9 Hypertensive chronic kidney disease with stage 1 through stage 4 chronic kidney disease, or unspecified chronic kidney disease; N18.9 Chronic kidney disease, unspecified; Z86.11 Personal history of tuberculosis; Z86.711 Personal history of pulmonary embolism; Z95.828 Presence of other vascular implants and grafts; G20 Parkinson's disease; F02.80 Dementia in other diseases classified elsewhere, unspecified severity, without behavioral disturbance, psychotic disturbance, mood disturbance, and anxiety; E78.5 Hyperlipidemia, unspecified; D64.9 Anemia, unspecified